=== PATIENT | female | born 1940 | race Caucasian/White ===

== ENCOUNTER 2016-11-24 10:37 | Inpatient (IN) | payer OTHER ==
--- NOTE | 2016-11-24 11:13 | PDOC ---
History of Present Illness - General Chief Complaint: Pain Stated Complaint: PAIN,WEAKNESS,RT HIP PAIN Time Seen by Provider: 11/24/16 11:06 History Source: Patient Exam Limitations: No Limitations - History of Present Illness Initial Comments: 11/24/16 11:13 Patient is a 75-year-old woman with a significant past medical history of breast cancer (bilateral mastectomy 4 years ago), lung cancer (small cancer in hip, spine and liver), collapsed left lung, and recurrent pleural effusions presents with one week history of worsening hip pain. She describes 10/10 sharp right hip pain that radiates from hip to interior thigh. She states pain started when she was trying to sit in chair and felt sharp pain in hip. Pain has progressed to pain where she can not bear to move or bare weight on right leg. No loss of sensation of right leg. Denies fever, chills , abd. pain, Timing/Duration: 1 week Severity: severe Modifying Factors: worse with: movement Associated Symptoms: denies: fever/chills, nausea/vomiting Aspirin Received prior to arrival: Yes: no aspirin today Past History - Travel Traveled outside of the country in the last 30 days: No Close contact w/someone who was outside of country & ill: No - Past Medical History Allergies/Adverse Reactions: Allergies Allergy/AdvReac Type Severity Reaction Status Date / Time codeine [Codeine] Allergy Severe DIZZINESS Verified 05/07/16 07:36 epinephrine Allergy Severe PALPITATION Verified 05/07/16 07:36 meperidine HCl [From Demerol] Allergy Severe Nausea Verified 05/07/16 07:36 morphine Allergy Severe WEAKNESS Verified 05/07/16 07:36 oxycodone HCl [From Percocet] Allergy Severe Nausea Verified 05/07/16 07:36 cephalexin [Cephalexin] Allergy Intermediate Hives Verified 05/07/16 07:36 diazepam [From Valium] Allergy Intermediate Hives Verified 05/07/16 07:36 ketorolac tromethamine Allergy Intermediate Hives Verified 05/07/16 07:36 [From Toradol] prochlorperazine edisylate Allergy Intermediate Hives Verified 05/07/16 07:36 [From Compazine] prochlorperazine maleate Allergy Intermediate Hives Verified 05/07/16 07:36 [From Compazine] ampicillin Allergy SEVERE RASH Verified 05/07/16 07:36 celery Allergy Verified 05/07/16 07:36 ciprofloxacin [From Cipro] Allergy SEVERE RASH Verified 05/07/16 07:36 ciprofloxacin HCl Allergy SEVERE RASH Verified 05/07/16 07:36 [From Cipro] clindamycin Allergy SEVERE RASH Verified 05/07/16 07:36 fentanyl Allergy Vomiting Verified 05/07/16 07:36 pineapple Allergy THROAT Verified 05/07/16 07:36 SWELLING piperacillin Allergy SEVERE RASH Verified 05/07/16 07:36 vancomycin Allergy SEVERE RASH Verified 05/07/16 07:36 Home Medications: Ambulatory Orders Ranitidine [Zantac -] 150 mg PO PRN PRN 06/24/12 Acetaminophen [Tylenol] 650 mg PO PRN 08/15/15 Diphenhydramine [Benadryl Capsule -] 50 mg PO Q6H PRN #120 capsule 08/26/15 Enoxaparin [Lovenox -] 90 mg SQ BID disp.syrin 08/26/15 Anastrozole [Arimidex -] 1 mg PO DAILY 05/06/16 Cholecalciferol (Vitamin D3) [Vitamin D3] 4,000 unit PO DAILY 05/06/16 Anemia: No Asthma: No Cancer: Yes (BILAT BREAST;LUNG LEFT ? R hip) Cardiac Disorders: Yes (PALPITATIONS) CVA: No COPD: No CHF: No Dementia: No Diabetes: No GI Disorders: Yes (REFLUX) Disorders: Yes (UTI'S, STRESS INCONTINENCE) HTN: No Hypercholesterolemia: No Liver Disease: Yes (cyst) Seizures: No Thyroid Disease: No - Surgical History Abdominal Surgery: Yes Appendectomy: Yes (age 18) Cardiac Surgery: No Cholecystectomy: Yes (1997) Lung Surgery: Yes (pleurodesis) Neurologic Surgery: No Orthopedic Surgery: No - Immunization History Immunization Up to Date: Yes - Psycho/Social/Smoking Cessation Hx Anxiety: No Suicidal Ideation: No Smoking History: Never smoked Have you smoked in the past 12 months: No Information on smoking cessation initiated: No Hx Alcohol Use: No Drug/Substance Use Hx: No Substance Use Type: None Hx Substance Use Treatment: No Review of Systems - Review of Systems Able to Perform ROS?: Yes Is the patient limited Uzbek proficient: No Constitutional: No: Chills, Diaphoresis, Fever Respiratory: No: Cough, Orthopnea Cardiac (ROS): No: Chest Pain Musculoskeletal: Yes: Joint Pain (right hip ) Neurological: Yes: Weakness, Unsteady Gait. No: Numbness, Tingling All Other Systems: Reviewed and Negative *Physical Exam - Vital Signs Last Vital Signs Temp Pulse Resp BP Pulse Ox 98.2 F 77 19 120/52 100 11/24/16 10:56 11/24/16 10:56 11/24/16 10:56 11/24/16 10:56 11/24/16 10:56 - Physical Exam General Appearance: Yes: Mild Distress, Obese HEENT: positive: EOMI, ESEQUIEL, Normal Voice Neck: positive: Supple Respiratory/Chest: positive: Decreased Breath Sounds (LLL ). negative: Respiratory Distress, Accessory Muscle Use, Rhonchi, Wheezing Cardiovascular: positive: Regular Rhythm, Regular Rate. negative: S1, S2, Edema , JVD, Murmur Vascular Pulses: Dorsalis-Pedis (R): 1+, Doralis-Pedis (L): 1+ Gastrointestinal/Abdominal: positive: Normal Bowel Sounds, Soft Musculoskeletal: positive: Decreased Range of Motion (right hip pain reproduced on internal rotation of hip.) ED Treatment Course - LABORATORY CBC & Chemistry Diagram: 11/24/16 11:47 11/24/16 11:47 Medical Decision Making - Medical Decision Making 11/24/16 11:54 A:Patient is a 75-year-old woman with a significant past medical history of breast cancer (bilateral mastectomy 4 years ago), lung cancer (small cancer in hip, spine and liver), collapsed left lung, and recurrent pleural effusions presents with one week history of worsening hip pain. Will w/u for possible pathologic fracture. P: * CBC,CMP, and EKG * Xray of hip and pelvis. right side. * IV tylenol 1000mg *DC/Admit/Observation/Transfer Diagnosis at time of Disposition: Inability to ambulate due to hip - Discharge Dispostion Condition at time of disposition: Stable Admit: Yes
[2016-11-24 11:22] VITALS: BMI 38.4
[2016-11-24] MEDS ORDERED: ACETAMINOPHEN 1000 MG/100 ML VIAL (NON FORMULARY) IVPB ONE (11:42)
[2016-11-24] MEDS ORDERED: ACETAMINOPHEN INJECTION 100 ML IVPB ONE (11:51)
[2016-11-24 11:59] LABS: BASOPHIL 0.5 % (0-2.0); EOSINOPHIL 0.6 % (0-4.5); MCH 26.6 pg (25.7-33.7); MCHC 32.5 g/dl (32.0-36.0); MEAN CELL VOLUME 81.8 fl (80-96); MEAN PLT VOLUME 8.4 fl (7.5-11.1); NEUTROPHILS 76.2 % (42.8-82.8); PLATELET COUNT 178 K/MM3 (134-434); RDW 16.3 % (11.6-15.6); WHITE BLOOD COUNT 9.1 K/mm3 (4.0-10.0)
[2016-11-24 12:24] LABS: ALBUMIN 3.7 g/dl (3.4-5.0); ANION GAP 9 (8-16); CALCIUM 9.7 mg/dL (8.5-10.1); CO2 28 mmol/L (21-32); COCKROFT - GAULT 188.785; CREATININE 0.4 mg/dL (0.55-1.02); GLUCOSE,RANDOM 98 mg/dL (74-106); SGOT/AST 11 U/L (15-37); SGPT/ALT 21 U/L (12-78)
[2016-11-24 12:26] LABS: ALK PHOS 79 U/L (45-117); BILIRUBIN,TOTAL 0.3 mg/dL (0.2-1.0); TOT PROT 6.8 g/dl (6.4-8.2)
--- NOTE | 2016-11-24 12:46 | PDOC ---
Attending Attestation - Resident Resident Name: Adriel Ivory - ED Attending Attestation I have performed the following: I have examined & evaluated the patient, The case was reviewed & discussed with the resident, I agree w/resident's findings & plan, Exceptions are as noted - HPI HPI: 75 yo F history breast CA s/p B/L mastectomies, lung CA, pleural effusions presents with 1 week history progressively worsening R hip pain, now severe. She is now unable to ambulate due to severe pain. She has multiple medication allergies, has difficulty tolerating pain medication. Denies loss of sensation, back pain. - Physicial Exam PE: GENERAL: Awake, alert, and fully oriented, in no acute distress HEAD: No signs of trauma EYES: PERRLA, EOMI, sclera anicteric, conjunctiva clear ENT: Auricles normal inspection, hearing grossly normal, nares patent, oropharynx clear without exudates. Moist mucosa NECK: Normal ROM, supple, no lymphadenopathy, JVD, or masses LUNGS: Breath sounds equal, clear to auscultation bilaterally. No wheezes, and no crackles HEART: Regular rate and rhythm, normal S1 and S2, no murmurs, rubs or gallops ABDOMEN: Soft, nontender, normoactive bowel sounds. No guarding, no rebound. No masses EXTREMITIES: R hip tenderness, with dec ROM due to pain. Remainder of extremities with normal range of motion, no edema. No clubbing or cyanosis. No cords, erythema, or tenderness NEUROLOGICAL: Cranial nerves II through XII grossly intact. Normal speech. Motor and sensation intact. Gait not tested due to nature of complaint. SKIN: Warm, Dry, normal turgor, no rashes or lesions noted. - Medical Decision Making Will obtain screening XR, and if not sufficient, will obtain CT. Will require admission for failure to ambulate. Patient normally sees Dr. Lim, who admits to Dr. Adame. However, Dr. Adame is away, covered by hospitalist. Heart Score/ECG Review - ECG Impressions Comment:: EKG read 12:05- NSR 72 bpm, +motion artifact. No acute ST/T changes
--- NOTE | 2016-11-24 15:49 | HP ---
CHIEF COMPLAINT: PCP: HISTORY OF PRESENT ILLNESS: ER course was notable for: (1) (2) (3) Recent Travel: PAST MEDICAL HISTORY: PAST SURGICAL HISTORY: Social History: Smoking: Alcohol: Drugs: Family History: Allergies codeine [Codeine] Allergy (Severe, Verified 05/07/16 07:36) DIZZINESS epinephrine Allergy (Severe, Verified 05/07/16 07:36) PALPITATION meperidine HCl [From Demerol] Allergy (Severe, Verified 05/07/16 07:36) Nausea VERY SICK morphine Allergy (Severe, Verified 05/07/16 07:36) WEAKNESS oxycodone HCl [From Percocet] Allergy (Severe, Verified 05/07/16 07:36) Nausea VERY SICK cephalexin [Cephalexin] Allergy (Intermediate, Verified 05/07/16 07:36) Hives diazepam [From Valium] Allergy (Intermediate, Verified 05/07/16 07:36) Hives ketorolac tromethamine [From Toradol] Allergy (Intermediate, Verified 05/07/16 07:36) Hives prochlorperazine edisylate [From Compazine] Allergy (Intermediate, Verified 07:36) Hives prochlorperazine maleate [From Compazine] Allergy (Intermediate, Verified 07:36) Hives ampicillin Allergy (Verified 05/07/16 07:36) SEVERE RASH celery Allergy (Verified 05/07/16 07:36) ciprofloxacin [From Cipro] Allergy (Verified 05/07/16 07:36) SEVERE RASH ciprofloxacin HCl [From Cipro] Allergy (Verified 05/07/16 07:36) SEVERE RASH clindamycin Allergy (Verified 05/07/16 07:36) SEVERE RASH fentanyl Allergy (Verified 05/07/16 07:36) Vomiting slow to awake-"didnt feel well"-vomited for 4 days pt placed on Prednisone pineapple Allergy (Verified 05/07/16 07:36) THROAT SWELLING piperacillin Allergy (Verified 05/07/16 07:36) SEVERE RASH vancomycin Allergy (Verified 05/07/16 07:36) SEVERE RASH HOME MEDICATIONS: Home Medications Medication Instructions Recorded Ranitidine [Zantac -] 150 mg PO PRN PRN 06/24/12 Acetaminophen [Tylenol] 650 mg PO PRN 08/15/15 Diphenhydramine [Benadryl Capsule 50 mg PO Q6H PRN #120 capsule 08/26/15 -] Enoxaparin [Lovenox -] 90 mg SQ BID disp.syrin 08/26/15 Anastrozole [Arimidex -] 1 mg PO DAILY 05/06/16 Cholecalciferol (Vitamin D3) 4,000 unit PO DAILY 05/06/16 [Vitamin D3] REVIEW OF SYSTEMS CONSTITUTIONAL: Absent: fever, chills, diaphoresis, generalized weakness, malaise, loss of appetite, weight change HEENT: Absent: rhinorrhea, nasal congestion, throat pain, throat swelling, difficulty swallowing, mouth swelling, ear pain, eye pain, visual changes CARDIOVASCULAR: Absent: chest pain, syncope, palpitations, irregular heart rate, lightheadedness , peripheral edema RESPIRATORY: Absent: cough, shortness of breath, dyspnea with exertion, orthopnea, wheezing, stridor, hemoptysis GASTROINTESTINAL: Absent: abdominal pain, abdominal distension, nausea, vomiting, diarrhea, constipation, melena, hematochezia GENITOURINARY: Absent: dysuria, frequency, urgency, hesitancy, hematuria, flank pain, genital pain MUSCULOSKELETAL: Absent: myalgia, arthralgia, joint swelling, back pain, neck pain SKIN: Absent: rash, itching, pallor HEMATOLOGIC/IMMUNOLOGIC: Absent: easy bleeding, easy bruising, lymphadenopathy, frequent infections ENDOCRINE: Absent: unexplained weight gain, unexplained weight loss, heat intolerance, cold intolerance NEUROLOGIC: Absent: headache, focal weakness or paresthesias, dizziness, unsteady gait, seizure, mental status changes, bladder or bowel incontinence PSYCHIATRIC: Absent: anxiety, depression, suicidal or homicidal ideation, hallucinations. PHYSICAL EXAMINATION Vital Signs - 24 hr 11/24/16 11/24/16 10:56 15:41 Temperature 98.2 F 97.9 F Pulse Rate 77 Pulse Rate [ 74 Apical] Respiratory 19 18 Rate Blood Pressure 120/52 Blood Pressure 124/79 [Right Arm] O2 Sat by Pulse 100 97 Oximetry (%) GENERAL: Awake, alert, and fully oriented, in no acute distress. HEAD: Normal with no signs of trauma. EYES: Pupils equal, round and reactive to light, extraocular movements intact, sclera anicteric, conjunctiva clear. No lid lag. EARS, NOSE, THROAT: Ears normal, nares patent, oropharynx clear without exudates. Moist mucous membranes. NECK: Normal range of motion, supple without lymphadenopathy, JVD, or masses. LUNGS: Breath sounds equal, clear to auscultation bilaterally. No wheezes, and no crackles. No accessory muscle use. HEART: Regular rate and rhythm, normal S1 and S2 without murmur, rub or gallop. ABDOMEN: Soft, nontender, not distended, normoactive bowel sounds, no guarding, no rebound, no masses. No hepatomegaly or splenomegaly. MUSCULOSKELETAL: Normal range of motion at all joints. No bony deformities or tenderness. No CVA tenderness. UPPER EXTREMITIES: 2+ pulses, warm, well-perfused. No cyanosis. No clubbing. No peripheral edema. LOWER EXTREMITIES: 2+ pulses, warm, well-perfused. No calf tenderness. No peripheral edema. NEUROLOGICAL: Cranial nerves II-XII intact. Normal speech. Normal gait. PSYCHIATRIC: Cooperative. Good eye contact. Appropriate mood and affect. SKIN: Warm, dry, normal turgor, no rashes or lesions noted, normal capillary refill. Laboratory Results - last 24 hr 11/24/16 11/24/16 11:47 11:47 WBC 9.1 RBC 5.06 Hgb 13.5 D Hct 41.4 MCV 81.8 MCHC 32.5 RDW 16.3 H Plt Count 178 D MPV 8.4 Neutrophils % 76.2 Lymphocytes % 17.5 Monocytes % 5.2 Eosinophils % 0.6 Basophils % 0.5 Sodium 140 Potassium 4.0 Chloride 103 Carbon Dioxide 28 Anion Gap 9 BUN 8 Creatinine 0.4 L D Creat Clearance w eGFR > 60 Random Glucose 98 Calcium 9.7 D Total Bilirubin 0.3 D AST 11 L D ALT 21 D Alkaline Phosphatase 79 D Total Protein 6.8 Albumin 3.7 D ASSESSMENT/PLAN:
--- NOTE | 2016-11-24 15:49 | HP ---
CHIEF COMPLAINT: PCP: Dr. Adame Cardiology: Dr. Castillo HISTORY OF PRESENT ILLNESS: The patient is a 75-year-old woman with a significant past medical history of recurrent and metastatic breast cancer (bilateral mastectomy 4 years ago), recurrent malignant pleural effusions, paroxysmal atrial fibrillation (on Lovenox) and pulmonary embolism, who presented to the emergency department with a 10 day history of worsening right hip pain. She states that the pain started abruptly when she was climbing the stairs. The pain has now progressed to the point where she can no longer bear weight on the right leg. It is worsened by range of motion at the right hip. She denies lower extremity weakness or paresthesias. She denies bladder or bowel incontinence or retention. She denies recent dyspnea. ER course was notable for: (1) R hip XRay suggesting of fracture of the femoral neck (2) CT ordered PAST MEDICAL HISTORY: See above PAST SURGICAL HISTORY: See above Social History: Smoking: No Alcohol: No Drugs: No Family History: Allergies codeine [Codeine] Allergy (Severe, Verified 05/07/16 07:36) DIZZINESS epinephrine Allergy (Severe, Verified 05/07/16 07:36) PALPITATION meperidine HCl [From Demerol] Allergy (Severe, Verified 05/07/16 07:36) Nausea VERY SICK morphine Allergy (Severe, Verified 05/07/16 07:36) WEAKNESS oxycodone HCl [From Percocet] Allergy (Severe, Verified 05/07/16 07:36) Nausea VERY SICK cephalexin [Cephalexin] Allergy (Intermediate, Verified 05/07/16 07:36) Hives diazepam [From Valium] Allergy (Intermediate, Verified 05/07/16 07:36) Hives ketorolac tromethamine [From Toradol] Allergy (Intermediate, Verified 05/07/16 07:36) Hives prochlorperazine edisylate [From Compazine] Allergy (Intermediate, Verified 07:36) Hives prochlorperazine maleate [From Compazine] Allergy (Intermediate, Verified 07:36) Hives ampicillin Allergy (Verified 05/07/16 07:36) SEVERE RASH celery Allergy (Verified 05/07/16 07:36) ciprofloxacin [From Cipro] Allergy (Verified 05/07/16 07:36) SEVERE RASH ciprofloxacin HCl [From Cipro] Allergy (Verified 05/07/16 07:36) SEVERE RASH clindamycin Allergy (Verified 05/07/16 07:36) SEVERE RASH fentanyl Allergy (Verified 05/07/16 07:36) Vomiting slow to awake-"didnt feel well"-vomited for 4 days pt placed on Prednisone pineapple Allergy (Verified 05/07/16 07:36) THROAT SWELLING piperacillin Allergy (Verified 05/07/16 07:36) SEVERE RASH vancomycin Allergy (Verified 05/07/16 07:36) SEVERE RASH HOME MEDICATIONS: Home Medications Medication Instructions Recorded Ranitidine [Zantac -] 150 mg PO PRN PRN 06/24/12 Acetaminophen [Tylenol] 650 mg PO PRN 08/15/15 Diphenhydramine [Benadryl Capsule 50 mg PO Q6H PRN #120 capsule 08/26/15 -] Enoxaparin [Lovenox -] 90 mg SQ BID disp.syrin 08/26/15 Anastrozole [Arimidex -] 1 mg PO DAILY 05/06/16 Cholecalciferol (Vitamin D3) 4,000 unit PO DAILY 05/06/16 [Vitamin D3] REVIEW OF SYSTEMS CONSTITUTIONAL: Absent: fever, chills, diaphoresis, generalized weakness, malaise, loss of appetite, weight change HEENT: Absent: rhinorrhea, nasal congestion, throat pain, throat swelling, difficulty swallowing, mouth swelling, ear pain, eye pain, visual changes CARDIOVASCULAR: Absent: chest pain, syncope, palpitations, irregular heart rate, lightheadedness , peripheral edema RESPIRATORY: Absent: cough, shortness of breath, dyspnea with exertion, orthopnea, wheezing, stridor, hemoptysis GASTROINTESTINAL: Absent: abdominal pain, abdominal distension, nausea, vomiting, diarrhea, constipation, melena, hematochezia GENITOURINARY: Absent: dysuria, frequency, urgency, hesitancy, hematuria, flank pain, genital pain MUSCULOSKELETAL: Present: See HPI Absent: joint swelling, back pain, neck pain SKIN: Absent: rash, itching, pallor HEMATOLOGIC/IMMUNOLOGIC: Absent: easy bleeding, easy bruising, lymphadenopathy, frequent infections ENDOCRINE: Absent: unexplained weight gain, unexplained weight loss, heat intolerance, cold intolerance NEUROLOGIC: Absent: headache, focal weakness or paresthesias, dizziness, unsteady gait, seizure, mental status changes, bladder or bowel incontinence PSYCHIATRIC: Absent: anxiety, depression, suicidal or homicidal ideation, hallucinations. PHYSICAL EXAMINATION Vital Signs - 24 hr 11/24/16 11/24/16 10:56 15:41 Temperature 98.2 F 97.9 F Pulse Rate 77 Pulse Rate [ 74 Apical] Respiratory 19 18 Rate Blood Pressure 120/52 Blood Pressure 124/79 [Right Arm] O2 Sat by Pulse 100 97 Oximetry (%) GENERAL: Awake, alert, and fully oriented, in no acute distress. HEAD: Normal with no signs of trauma. EYES: Pupils equal, round and reactive to light, extraocular movements intact, sclera anicteric, conjunctiva clear. No lid lag. EARS, NOSE, THROAT: Ears normal, nares patent, oropharynx clear without exudates. Moist mucous membranes. NECK: Normal range of motion, supple without lymphadenopathy, JVD, or masses. LUNGS: Breath sounds equal, clear to auscultation bilaterally. No wheezes, and no crackles. No accessory muscle use. HEART: Regular rate and rhythm, normal S1 and S2 without murmur, rub or gallop. ABDOMEN: Soft, nontender, not distended, normoactive bowel sounds, no guarding, no rebound, no masses. No hepatomegaly or splenomegaly. MUSCULOSKELETAL: There is tenderness to palpation over the right hip. There is pain on any range of motion, but most pronounced with external rotation. Normal range of motion at all other joints. No bony deformities or tenderness. No CVA tenderness. UPPER EXTREMITIES: 2+ pulses, warm, well-perfused. No cyanosis. No clubbing. No peripheral edema. LOWER EXTREMITIES: 2+ pulses, warm, well-perfused. No calf tenderness. No peripheral edema. NEUROLOGICAL: Cranial nerves II-XII intact. Normal speech. Normal gait. PSYCHIATRIC: Cooperative. Good eye contact. Appropriate mood and affect. SKIN: Warm, dry, normal turgor, no rashes or lesions noted, normal capillary refill. Laboratory Results - last 24 hr 11/24/16 11/24/16 11:47 11:47 WBC 9.1 RBC 5.06 Hgb 13.5 D Hct 41.4 MCV 81.8 MCHC 32.5 RDW 16.3 H Plt Count 178 D MPV 8.4 Neutrophils % 76.2 Lymphocytes % 17.5 Monocytes % 5.2 Eosinophils % 0.6 Basophils % 0.5 Sodium 140 Potassium 4.0 Chloride 103 Carbon Dioxide 28 Anion Gap 9 BUN 8 Creatinine 0.4 L D Creat Clearance w eGFR > 60 Random Glucose 98 Calcium 9.7 D Total Bilirubin 0.3 D AST 11 L D ALT 21 D Alkaline Phosphatase 79 D Total Protein 6.8 Albumin 3.7 D EKG: Normal sinus rhythm at 72, normal axis, incomplete right bundle-branch block, no ST changes ASSESSMENT/PLAN: The patient is a 76-year-old female with a significant past medical history and emergency department course as above, who is being admitted to inpatient services for a suspected pathological right hip fracture. ORTHO -Suspected pathological right femoral neck fracture Will obtain CT of the right hip to better define pathology Will consult orthopedics, she has seen Dr. Randall in the past Will use oral Tylenol for pain control She refuses any other analgesics Will consult cardiology and pulmonology for pre-operative cardiac and pulmonary evaluations CARDIOVASCULAR -Paroxysmal atrial fibrillation -History of PE She is in NSR Will discontinue Lovenox and begin heparin gtt (no bolus) Cardiology consult as above HEME/ONC -Metastatic breast cancer Will obtain CXR to assess known lung mets and chronic effusion Continue Arimidex Pulmonary consult as above FEN Anticipate that she will not have surgery today given need for pre-op pulmonary and cardiac evaluation Regular diet D51/2NS at 125ml/hr PROPHYLAXIS Will continue her home Ranitidine She is already anticoagulated Visit type - Emergency Visit Emergency Visit: Yes ED Registration Date: 11/24/16 Care time: The patient presented to the Emergency Department on the above date and was hospitalized for further evaluation of their emergent condition. - New Patient This patient is new to me today: Yes Date on this admission: 11/24/16 - Critical Care Critical Care patient: No
[2016-11-24] MEDS ORDERED: diphenhydrAMINE HCL 25 MG CAPSULE (FP) PO PRN (16:19)
[2016-11-24] MEDS ORDERED: HEPARIN NA (PORCINE) 5,000 UNITS/ML 1ML VIAL IVPUSH PRN (16:23)
[2016-11-24] MEDS ORDERED: DEXTROSE 5%-0.45% SALINE 1,000 ML IV SCH (16:30)
[2016-11-24] MEDS ORDERED: HEPARIN INFUSION - 500 ML IVPB ONE (16:35)
[2016-11-24 18:00] LABS: INR 1.21 (0.82-1.09); PROTHROMBIN TIME (PATIENT) 13.4 SEC (9.98-11.88)
[2016-11-24] MEDS: HEPARIN INFUSION - 500 ML IVPB SCH (18:24)
[2016-11-24] MEDS: RANITIDINE HCL 150 MG TABLET (FP) PO PRN (21:03)
--- NOTE | 2016-11-24 22:54 | EKG ---
Test Reason : Blood Pressure : / mmHG Vent. Rate : 072 BPM Atrial Rate : 072 BPM P-R Int : 164 ms QRS Dur : 098 ms QT Int : 382 ms P-R-T Axes : 042 016 015 degrees QTc Int : 418 ms NORMAL SINUS RHYTHM INCOMPLETE RIGHT BUNDLE BRANCH BLOCK BORDERLINE ECG WHEN COMPARED WITH ECG OF 15-AUG-2015 22:50, VENT. RATE HAS DECREASED Confirmed by NEAL SMITH MD ([id number]) on 11/24/2016 10:53:55 PM Referred By: Confirmed By:NEAL SMITH MD
[2016-11-25 08:01] LABS: BASOPHIL 0.7 % (0-2.0); EOSINOPHIL 1.8 % (0-4.5); MCH 27.2 pg (25.7-33.7); MCHC 33.3 g/dl (32.0-36.0); MEAN CELL VOLUME 81.7 fl (80-96); MEAN PLT VOLUME 8.4 fl (7.5-11.1); NEUTROPHILS 73.2 % (42.8-82.8); PLATELET COUNT 149 K/MM3 (134-434); RDW 16.2 % (11.6-15.6); WHITE BLOOD COUNT 8.1 K/mm3 (4.0-10.0)
[2016-11-25 08:40] LABS: ALBUMIN 3.2 g/dl (3.4-5.0); ALK PHOS 73 U/L (45-117); ANION GAP 10 (8-16); BILIRUBIN,TOTAL 0.3 mg/dL (0.2-1.0); CALCIUM 8.9 mg/dL (8.5-10.1); CO2 27 mmol/L (21-32); COCKROFT - GAULT 188.785; CREATININE 0.4 mg/dL (0.55-1.02); GLUCOSE,RANDOM 117 mg/dL (74-106); PHOSPHOROUS 3.8 mg/dL (2.5-4.9); SGOT/AST 8 U/L (15-37); SGPT/ALT 20 U/L (12-78); TOT PROT 6.1 g/dl (6.4-8.2)
--- NOTE | 2016-11-25 09:34 | CON.CARD ---
Consult Consult Specialty:: Cardiology Referred by:: Dr. Lim/Deep Reason for Consultation:: History PE, PAF, possible periop evaluation - History of Present Illness Chief Complaint: Right hip pain History of Present Illness: The patient is a 75-year-old woman with a significant past medical history of recurrent and metastatic breast cancer (bilateral mastectomy 4 years ago), recurrent malignant pleural effusions, paroxysmal atrial fibrillation (on Lovenox) and pulmonary embolism 2016, who presented to the emergency department with a 10 day history of worsening right hip pain. She states that the pain started abruptly when she was climbing the stairs. The pain has now progressed to the point where she can no longer bear weight on the right leg. It is worsened by range of motion at the right hip. She denies lower extremity weakness or paresthesias. She denies bladder or bowel incontinence or retention. She denies recent dyspnea. R hip XRay suggesting of fracture of the femoral neck CT done, showing no fracture but nonspecific sclerotic foci and pubic ramus fracture. Denies chest pain or SOB. TELE: NSR ECG with NSR and no acute ST changes. 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' hysterectomy,cholecystectomy appendectomy - Past Surgical History Past Surgical History: Yes: Appendectomy, Cholecystectomy, Mastectomy (bilateral ) - Alcohol/Substance Use Hx Alcohol Use: No - Smoking History Smoking history: Never smoked Have you smoked in the past 12 months: No - Social History ADL: Independent History of Recent Travel: No Home Medications - Allergies Allergies/Adverse Reactions: Allergies Allergy/AdvReac Type Severity Reaction Status Date / Time codeine [Codeine] Allergy Severe DIZZINESS Verified 05/07/16 07:36 epinephrine Allergy Severe PALPITATION Verified 05/07/16 07:36 meperidine HCl [From Demerol] Allergy Severe Nausea Verified 05/07/16 07:36 morphine Allergy Severe WEAKNESS Verified 05/07/16 07:36 oxycodone HCl [From Percocet] Allergy Severe Nausea Verified 05/07/16 07:36 cephalexin [Cephalexin] Allergy Intermediate Hives Verified 05/07/16 07:36 diazepam [From Valium] Allergy Intermediate Hives Verified 05/07/16 07:36 ketorolac tromethamine Allergy Intermediate Hives Verified 05/07/16 07:36 [From Toradol] prochlorperazine edisylate Allergy Intermediate Hives Verified 05/07/16 07:36 [From Compazine] prochlorperazine maleate Allergy Intermediate Hives Verified 05/07/16 07:36 [From Compazine] ampicillin Allergy SEVERE RASH Verified 05/07/16 07:36 celery Allergy Verified 05/07/16 07:36 ciprofloxacin [From Cipro] Allergy SEVERE RASH Verified 05/07/16 07:36 ciprofloxacin HCl Allergy SEVERE RASH Verified 05/07/16 07:36 [From Cipro] clindamycin Allergy SEVERE RASH Verified 05/07/16 07:36 fentanyl Allergy Vomiting Verified 05/07/16 07:36 pineapple Allergy THROAT Verified 05/07/16 07:36 SWELLING piperacillin Allergy SEVERE RASH Verified 05/07/16 07:36 vancomycin Allergy SEVERE RASH Verified 05/07/16 07:36 - Home Medications Home Medications: Ambulatory Orders Ranitidine [Zantac -] 150 mg PO PRN PRN 06/24/12 Acetaminophen [Tylenol] 650 mg PO PRN 08/15/15 Diphenhydramine [Benadryl Capsule -] 50 mg PO Q6H PRN #120 capsule 08/26/15 Enoxaparin [Lovenox -] 90 mg SQ BID disp.syrin 08/26/15 Anastrozole [Arimidex -] 1 mg PO DAILY 05/06/16 Cholecalciferol (Vitamin D3) [Vitamin D3] 4,000 unit PO DAILY 05/06/16 Family Disease History - Family Disease History Family Disease History: CA: Brother (Bladder), Other: Father (bleeding ulcer), Mother (CHF) Review of Systems Findings/Remarks: See HPI - Review of Systems Constitutional: reports: No Symptoms Musculoskeletal: reports: Other (right hip pain) - Risk Factors Known Risk Factors: Yes: Other (prior XRT) Vital Signs: Vital Signs Temperature 98 F 11/25/16 06:13 Pulse Rate 70 11/25/16 06:13 Respiratory Rate 20 11/25/16 06:13 Blood Pressure 134/75 11/25/16 06:13 O2 Sat by Pulse Oximetry (%) 96 11/24/16 20:34 Constitutional: Yes: No Distress Eyes: Yes: Conjunctiva Clear Respiratory: Yes: Regular, CTA Bilaterally Gastrointestinal: Yes: Normal Bowel Sounds, Soft Cardiovascular: Yes: Regular Rate and Rhythm JVD: No Carotid Bruit: No PMI: Non-Displaced Heart Sounds: Yes: S1, S2 (RRR, no murmurs) Edema: No Neurological: Yes: Alert, Oriented ...Motor Strength: WNL - Other Data Labs, Other Data: CBC, BMP 11/25/16 05:50 11/25/16 05:50 INR, PTT INR 1.21 (0.82-1.09) H 11/24/16 17:30 NSR 76bpm, no acute changes Echo: Pending Ejection Fraction %: LVEF > or = 40 % Imaging - Results Chest X-ray: Image Reviewed Cat Scan: Report Reviewed EKG: Image Reviewed Problem List - Problems (1) Inability to ambulate due to hip Assessment/Plan: -CT without evidence of femoral fracture; pubic ramus fracture, usually managed medically -Ortho eval Code(s): R26.2 - DIFFICULTY IN WALKING, NOT ELSEWHERE CLASSIFIED (2) Paroxysmal a-fib Assessment/Plan: -Currently in sinus, Continue AC. -Was switched from Lovenox to heparin gtts in case surgery was needed. Code(s): I48.0 - PAROXYSMAL ATRIAL FIBRILLATION (3) Pulmonary embolism on long-term anticoagulation therapy Assessment/Plan: -July 2015 -For echo to re-assess RV and RVSP Code(s): I26.99 - OTHER PULMONARY EMBOLISM WITHOUT ACUTE COR PULMONALE Z79.01 - SKILLED NURSING (CURRENT) USE OF ANTICOAGULANTS (4) Metastatic breast cancer Assessment/Plan: -as per PMD and oncology Code(s): C50.919 - MALIGNANT NEOPLASM OF UNSP SITE OF UNSPECIFIED FEMALE BREAST C79.9 - SECONDARY MALIGNANT NEOPLASM OF UNSPECIFIED SITE
[2016-11-25] MEDS: CHOLECALCIFEROL (VITAMIN D3) 1,000 UNIT TABLET (FP) PO SCH (10:42)
--- NOTE | 2016-11-25 10:52 | PN ---
Progress Note (short form) - Note Progress Note: Pt seen and examined. In summary she is a 76 year old female with a history of metastatic breast cancer and a 10 day history of right hip pain. She was walking up the stairs, and on the third step she felt a sharp pain in the right hip and anterior groin area. Since then she has had severe pain and difficulty ambulating because pain in the right hip. PE The RLE appears grossly normal. No areas of ecchymosis, no swelling. No deformity, no malrotation or shortening. NVI + pain in the right anterior groin and lateral aspect of the hip with logrolling, and attempting the straight leg raise. Has difficulty with active hip flexion. Good ROM at the right knee, ankle, foot, toes. Xrays Show a radioluscent line in the right femoral neck. No obvious fracture. CT Scan Shows no acute bony pathology, no fracture. Only severe OA and bony changes consistent with metastatic cancer. Imp Severe right hip OA with femoral and acetabular metastatic Breast Cancer, no obvious fracture. Rec A trial of Physical therapy, WBAT with walker. If her ambulation ability improves, no surgery necessary. If no improvement in pain and ability to ambulate I would recommend a right THR. Can f/u as an out pt
[2016-11-25] MEDS: ANASTROZOLE 1 MG TABLET PO SCH (12:48)
--- NOTE | 2016-11-25 13:11 | EKG ---
Test Reason : Blood Pressure : / mmHG Vent. Rate : 076 BPM Atrial Rate : 076 BPM P-R Int : 172 ms QRS Dur : 094 ms QT Int : 366 ms P-R-T Axes : 066 008 017 degrees QTc Int : 411 ms NORMAL SINUS RHYTHM NORMAL ECG WHEN COMPARED WITH ECG OF 24-NOV-2016 11:53, NO SIGNIFICANT CHANGE WAS FOUND Confirmed by SIVAN SIGNH MD ([id number]) on 11/25/2016 1:10:44 PM Referred By: Gia HENDRICKS Confirmed By:SIVAN SINGH MD
--- NOTE | 2016-11-25 15:35 | CON.PULM ---
Consult Consult Specialty:: PULMONARY Referred by:: MATT Reason for Consultation:: PRE-OP CLEARANCE - History of Present Illness Chief Complaint: RIGHT HIP PAIN History of Present Illness: The patient is a 75-year-old woman with a significant past medical history of recurrent and metastatic breast cancer (bilateral mastectomy 4 years ago), recurrent malignant pleural effusions, paroxysmal atrial fibrillation (on Lovenox) and pulmonary embolism, who presented to the emergency department with a 10 day history of worsening right hip pain. She states that the pain started abruptly when she was climbing the stairs. The pain has now progressed to the point where she can no longer bear weight on the right leg. It is worsened by range of motion at the right hip. She denies lower extremity weakness or paresthesias. She denies bladder or bowel incontinence or retention. She denies recent dyspnea. - History Source History Provided By: Patient, Medical Record Limitations to Obtaining History: No Limitations - Past Medical History MANAGER REQUIREMENTS: No: Alzheimer's, CVA Cardio/Vascular: No: AFIB Pulmonary: Yes: Other (recurrent left malignant effusion s/p VATS). No: COPD Gastrointestinal: Yes: GERD. 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,cholecystectomy appendectomy - Past Surgical History Past Surgical History: Yes: Appendectomy, Cholecystectomy, Mastectomy (bilateral ) - Alcohol/Substance Use Hx Alcohol Use: No - Smoking History Smoking history: Never smoked Have you smoked in the past 12 months: No - Social History ADL: Independent Place of : [facility] History of Recent Travel: No Home Medications - Allergies Allergies/Adverse Reactions: Allergies Allergy/AdvReac Type Severity Reaction Status Date / Time codeine [Codeine] Allergy Severe DIZZINESS Verified 05/07/16 07:36 epinephrine Allergy Severe PALPITATION Verified 05/07/16 07:36 meperidine HCl [From Demerol] Allergy Severe Nausea Verified 05/07/16 07:36 morphine Allergy Severe WEAKNESS Verified 05/07/16 07:36 oxycodone HCl [From Percocet] Allergy Severe Nausea Verified 05/07/16 07:36 cephalexin [Cephalexin] Allergy Intermediate Hives Verified 05/07/16 07:36 diazepam [From Valium] Allergy Intermediate Hives Verified 05/07/16 07:36 ketorolac tromethamine Allergy Intermediate Hives Verified 05/07/16 07:36 [From Toradol] prochlorperazine edisylate Allergy Intermediate Hives Verified 05/07/16 07:36 [From Compazine] prochlorperazine maleate Allergy Intermediate Hives Verified 05/07/16 07:36 [From Compazine] ampicillin Allergy SEVERE RASH Verified 05/07/16 07:36 celery Allergy Verified 05/07/16 07:36 ciprofloxacin [From Cipro] Allergy SEVERE RASH Verified 05/07/16 07:36 ciprofloxacin HCl Allergy SEVERE RASH Verified 05/07/16 07:36 [From Cipro] clindamycin Allergy SEVERE RASH Verified 05/07/16 07:36 fentanyl Allergy Vomiting Verified 05/07/16 07:36 pineapple Allergy THROAT Verified 05/07/16 07:36 SWELLING piperacillin Allergy SEVERE RASH Verified 05/07/16 07:36 vancomycin Allergy SEVERE RASH Verified 05/07/16 07:36 - Home Medications Home Medications: Ambulatory Orders Ranitidine [Zantac -] 150 mg PO PRN PRN 06/24/12 Acetaminophen [Tylenol] 650 mg PO PRN 08/15/15 Diphenhydramine [Benadryl Capsule -] 50 mg PO Q6H PRN #120 capsule 08/26/15 Enoxaparin [Lovenox -] 90 mg SQ BID disp.syrin 08/26/15 Anastrozole [Arimidex -] 1 mg PO DAILY 05/06/16 Cholecalciferol (Vitamin D3) [Vitamin D3] 4,000 unit PO DAILY 05/06/16 Family Disease History - Family Disease History Family Disease History: CA: Brother (Bladder), Other: Father (bleeding ulcer), Mother (CHF) Review of Systems - Review of Systems Constitutional: denies: Chills Eyes: denies: Blind Spots HENT: denies: Difficult Swallowing Neck: denies: Decreased ROM Cardiovascular: denies: Chest Pain Respiratory: denies: Cough Gastrointestinal: denies: Abdominal Pain Genitourinary: reports: No Symptoms Breasts: reports: See HPI Musculoskeletal: reports: Extremity Pain, Joint Pain Neurological: reports: No Symptoms Physical Exam Vital Sings: Vital Signs Temperature 98.3 F 11/25/16 14:55 Pulse Rate 78 11/25/16 14:55 Respiratory Rate 20 11/25/16 14:55 Blood Pressure 140/64 11/25/16 14:55 O2 Sat by Pulse Oximetry (%) 95 11/25/16 09:00 Constitutional: Yes: Calm Eyes: Yes: EOM Intact HENT: Yes: Normocephalic Neck: Yes: Trachea Midline Cardiovascular: Yes: Regular Rate and Rhythm, S1, S2 Respiratory: Yes: Rales (left base) Gastrointestinal: Yes: Abdomen, Obese Extremities: Yes: External Rotation (right lower ext) Integumentary: Yes: WNL Neurological: Yes: WNL ...Motor Strength: LLE (weakness post-polio) Labs: CBC, BMP 11/25/16 05:50 11/25/16 05:50 rest reviewed Imaging - Results Chest X-ray: Image Reviewed Cat Scan: Report Reviewed Problem List - Problems (1) Inability to ambulate due to hip Code(s): R26.2 - DIFFICULTY IN WALKING, NOT ELSEWHERE CLASSIFIED (2) Metastatic breast cancer Code(s): C50.919 - MALIGNANT NEOPLASM OF UNSP SITE OF UNSPECIFIED FEMALE BREAST C79.9 - SECONDARY MALIGNANT NEOPLASM OF UNSPECIFIED SITE (3) Paroxysmal a-fib Code(s): I48.0 - PAROXYSMAL ATRIAL FIBRILLATION (4) Pleural effusion Code(s): J90 - PLEURAL EFFUSION, NOT ELSEWHERE CLASSIFIED (5) Pulmonary emboli Code(s): I26.99 - OTHER PULMONARY EMBOLISM WITHOUT ACUTE COR PULMONALE Assessment/Plan IMPENDING PATHOLOGICAL FRACTURE RIGHT HIP ORTHO NOTE REVIEWED BREAST CA BILATERAL WITH H/O LIVER METS/LEFT PLEURAL EFFUSION S/P PLEURODESIS STABLE RESP STATUS RT-ONCO OPINION BONE SCAN FURTHER COMMENTS TO FOLLOW SPOKE WITH PMD DR. HILDA SINGER MD
--- NOTE | 2016-11-25 15:49 | PN ---
Physical Exam: SUBJECTIVE: Patient seen and examined. She is complaining of constipation and its aggravating her OBJECTIVE: Vital Signs Period Temp Pulse Resp BP Sys/Saul Pulse Ox Last 24 Hr 97.2 F-98.4 F 68-78 18-20 108-140/53-75 95-99 PE Neuro: alert, awake, cn 2-12intact Pulm: diminished + nc CV: s1 s2 rrr Abd: soft + cramping nd +bs ExT: le edema +1 msk: R hip tenderness Laboratory Results - last 24 hr 11/24/16 11/24/16 11/24/16 17:30 17:30 17:30 WBC RBC Hgb Hct MCV MCHC RDW Plt Count MPV Neutrophils % Lymphocytes % Monocytes % Eosinophils % Basophils % INR 1.21 H PTT (Actin FS) Sodium Potassium Chloride Carbon Dioxide Anion Gap BUN Creatinine Creat Clearance w eGFR Random Glucose Calcium Phosphorus 4.0 Magnesium 2.0 Total Bilirubin AST ALT Alkaline Phosphatase Total Protein Albumin Blood Type A POSITIVE Antibody Screen Negative 11/24/16 11/25/16 11/25/16 17:30 00:40 05:50 WBC 8.1 RBC 4.63 Hgb 12.6 Hct 37.9 MCV 81.7 MCHC 33.3 RDW 16.2 H Plt Count 149 MPV 8.4 Neutrophils % 73.2 Lymphocytes % 18.4 Monocytes % 5.9 Eosinophils % 1.8 D Basophils % 0.7 INR PTT (Actin FS) 40.8 H 57.1 H D Sodium Potassium Chloride Carbon Dioxide Anion Gap BUN Creatinine Creat Clearance w eGFR Random Glucose Calcium Phosphorus Magnesium Total Bilirubin AST ALT Alkaline Phosphatase Total Protein Albumin Blood Type Antibody Screen 11/25/16 05:50 WBC RBC Hgb Hct MCV MCHC RDW Plt Count MPV Neutrophils % Lymphocytes % Monocytes % Eosinophils % Basophils % INR PTT (Actin FS) Sodium 144 Potassium 3.8 Chloride 107 Carbon Dioxide 27 Anion Gap 10 BUN 12 D Creatinine 0.4 L Creat Clearance w eGFR > 60 Random Glucose 117 H Calcium 8.9 Phosphorus 3.8 Magnesium 2.0 Total Bilirubin 0.3 AST 8 L D ALT 20 Alkaline Phosphatase 73 Total Protein 6.1 L Albumin 3.2 L Blood Type Antibody Screen Active Medications Generic Name Dose Route Start Last Admin Trade Name Freq PRN Reason Stop Dose Admin Acetaminophen 650 mg 11/24/16 16:30 Tylenol - PO Q6H PRN FEVER OR PAIN Anastrozole 1 mg 11/25/16 10:00 11/25/16 12:48 Arimidex - PO 1 mg DAILY FAN Administration Cholecalciferol 4,000 unit 11/25/16 10:00 11/25/16 10:42 Vitamin D3 - PO 4,000 unit DAILY FAN Administration Diphenhydramine HCl 50 mg 11/24/16 16:19 Benadryl - PO Q6H PRN ANXIETY Heparin Sodium (Porcine) 1,000 unit 11/24/16 16:23 Heparin - IVPUSH PRN PRN Heparin Heparin Sodium (Porcine) 5,000 unit 11/24/16 16:23 Heparin - IVPUSH PRN PRN Heparin Dextrose/Sodium Chloride 1,000 mls @ 125 mls/hr 11/24/16 16:30 11/24/16 17:28 D5-1/2ns - IV 125 mls/hr ASDIR FAN Administration Heparin Sodium/Dextrose 500 mls @ 20 mls/hr 11/24/16 16:30 11/25/16 02:21 Heparin Infusion - IVPB 1,000 units/hr TITR FAN Titration Protocol 1,000 UNITS/HR Ranitidine HCl 150 mg 11/24/16 16:19 11/24/16 21:03 Zantac - PO 150 mg BID PRN Administration INDIGESTION Assessment: 76 year old woman with a significant past medical history of recurrent and metastatic breast cancer (bilateral mastectomy 4 years ago), recurrent malignant pleural effusions, paroxysmal atrial fibrillation (on Lovenox) and pulmonary embolism, who presented to the emergency department with a 10 day history of worsening right hip pain. She states that the pain started abruptly when she was climbing the stairs.suspected pathological right hip fracture. Plan: 1. Severe right hip OA with femoral acetabular metastatic breast ca - CT with no obvious fx - Per ortho: trial PT and WBAT and no surgery - If dose not improve will need THR 2. Paroxysmal atrial fibrillation/History of PE - ECHO shows normal LV size, fxn, EF, mild MR/TR, RVSP normal - Continue heparin gtt - Cardiology seeing 3. Metastatic bilateral breast cancer with h/o liver mets/left pleural effusion s/p pleurodesis - Continue Arimidex - If will need surgery will obtain oncology opinion - F/u Bone scan eval bone mets 4. Constipation - Bowel regimen - dulcolax pr prn 5. PPX GI: Continue home Ranitidine DVT: on AC Visit type - Emergency Visit Emergency Visit: Yes ED Registration Date: 11/24/16 Care time: The patient presented to the Emergency Department on the above date and was hospitalized for further evaluation of their emergent condition. - New Patient This patient is new to me today: Yes Date on this admission: 11/25/16 - Critical Care Critical Care patient: No
[2016-11-25] MEDS: HEPARIN INFUSION - 500 ML IVPB SCH (18:18)
[2016-11-25] MEDS ORDERED: BISACODYL 10 MG SUPP.RECT RC PRN (19:04)
[2016-11-25] MEDS: POLYETHYLENE GLYCOL 3350 119 GM BTL PO SCH (20:12)
[2016-11-25] MEDS: DOCUSATE SODIUM 100 MG CAPSULE (FP) PO SCH ×2 (20:12→21:17)
[2016-11-25] MEDS: SENNOSIDES 8.6MG TABLET (FP) PO SCH (21:15)
[2016-11-26 08:09] LABS: MCH 27.2 pg (25.7-33.7); MCHC 33.2 g/dl (32.0-36.0); MEAN PLT VOLUME 8.9 fl (7.5-11.1); PLATELET COUNT 151 K/MM3 (134-434); RDW 16.4 % (11.6-15.6); WHITE BLOOD COUNT 9.1 K/mm3 (4.0-10.0)
[2016-11-26 08:41] LABS: CALCIUM 9.1 mg/dL (8.5-10.1); COCKROFT - GAULT 251.77; CREATININE 0.3 mg/dL (0.55-1.02)
--- NOTE | 2016-11-26 09:09 | PN ---
Progress Note, Physician Chief Complaint: Echo: normal LV; normalized RV function History of Present Illness: TELE: NSR - Current Medication List Current Medications: Active Medications Acetaminophen (Tylenol -) 650 mg PO Q6H PRN PRN Reason: FEVER OR PAIN Anastrozole (Arimidex -) 1 mg PO DAILY [facility] Last Admin: 11/25/16 12:48 Dose: 1 mg Bisacodyl (Dulcolax Suppository -) 10 mg RC PRN PRN PRN Reason: CONSTIPATION Cholecalciferol (Vitamin D3 -) 4,000 unit PO DAILY [facility] Last Admin: 11/25/16 10:42 Dose: 4,000 unit Diphenhydramine HCl (Benadryl -) 50 mg PO Q6H PRN PRN Reason: ANXIETY Docusate Sodium (Colace -) 100 mg PO BID [facility] Last Admin: 11/25/16 21:17 Dose: Not Given Heparin Sodium (Porcine) (Heparin -) 1,000 unit IVPUSH PRN PRN PRN Reason: Heparin Heparin Sodium (Porcine) (Heparin -) 5,000 unit IVPUSH PRN PRN PRN Reason: Heparin Heparin Sodium/Dextrose (Heparin Infusion -) 500 mls @ 20 mls/hr IVPB TITR FAN ; 1,000 UNITS/HR PRN Reason: Protocol Last Admin: 11/25/16 18:18 Dose: 20 mls/hr Polyethylene Glycol (Miralax (For Daily Use) -) 17 gm PO DAILY [facility] Last Admin: 11/25/16 20:12 Dose: 17 gm Ranitidine HCl (Zantac -) 150 mg PO BID PRN PRN Reason: INDIGESTION Last Admin: 11/24/16 21:03 Dose: 150 mg Senna (Senna -) 2 tab PO HS [facility] Last Admin: 11/25/16 21:15 Dose: 2 tab - Objective Vital Signs: Vital Signs Temperature 97.6 F 11/26/16 05:51 Pulse Rate 77 11/26/16 05:51 Respiratory Rate 20 11/26/16 05:51 Blood Pressure 150/66 11/26/16 05:51 O2 Sat by Pulse Oximetry (%) 95 11/25/16 20:54 Constitutional: Yes: Calm Cardiovascular: Yes: Regular Rate and Rhythm Respiratory: Yes: CTA Bilaterally Gastrointestinal: Yes: Soft (non-tender) Edema: Yes Edema: LLE: Trace, RLE: Trace Neurological: Yes: Alert, Oriented Labs: CBC, BMP 11/26/16 05:40 11/26/16 05:40 INR, PTT INR 1.21 (0.82-1.09) H 11/24/16 17:30 Laboratory Tests 08/20/15 11/26/16 11/26/16 05:35 05:40 05:40 WBC 7.4 9.1 Hgb 11.8 12.8 Plt Count 140 151 PTT (Actin FS) 57.9 H Sodium Potassium BUN Creatinine 11/26/16 05:40 WBC Hgb Plt Count PTT (Actin FS) Sodium 143 Potassium 3.9 BUN 9 D Creatinine 0.3 L D - ....Imaging EKG: Image Reviewed Problem List - Problems (1) Inability to ambulate due to hip Code(s): R26.2 - DIFFICULTY IN WALKING, NOT ELSEWHERE CLASSIFIED (2) Paroxysmal a-fib Code(s): I48.0 - PAROXYSMAL ATRIAL FIBRILLATION (3) Pulmonary embolism on long-term anticoagulation therapy Code(s): I26.99 - OTHER PULMONARY EMBOLISM WITHOUT ACUTE COR PULMONALE Z79.01 - CLIENT FINANCE ANALYST (CURRENT) USE OF ANTICOAGULANTS (4) Metastatic breast cancer Code(s): C50.919 - MALIGNANT NEOPLASM OF UNSP SITE OF UNSPECIFIED FEMALE BREAST C79.9 - SECONDARY MALIGNANT NEOPLASM OF UNSPECIFIED SITE Assessment/Plan Problem List - Problems (1) Inability to ambulate due to hip Assessment/Plan: -CT without evidence of femoral fracture; pubic ramus fracture -Possible impending pathologic fracture, awaits bone scan and Rad-Onc input -Ortho eval noted. Code(s): R26.2 - DIFFICULTY IN WALKING, NOT ELSEWHERE CLASSIFIED (2) Paroxysmal a-fib Assessment/Plan: -Currently in sinus, Continue AC. Can D/C telemetry -Was switched from Lovenox to heparin gtts in case surgery is required. Code(s): I48.0 - PAROXYSMAL ATRIAL FIBRILLATION (3) Pulmonary embolism on long-term anticoagulation therapy Assessment/Plan: -July 2015 -repeat echo yesterday showed normal LV and RV fxn, recovered RV fxn. Code(s): I26.99 - OTHER PULMONARY EMBOLISM WITHOUT ACUTE COR PULMONALE Z79.01 - CLIENT FINANCE ANALYST (CURRENT) USE OF ANTICOAGULANTS (4) Metastatic breast cancer Assessment/Plan: -as per PMD and oncology Code(s): C50.919 - MALIGNANT NEOPLASM OF UNSP SITE OF UNSPECIFIED FEMALE BREAST C79.9 - SECONDARY MALIGNANT NEOPLASM OF UNSPECIFIED SITE
[2016-11-26] MEDS: CHOLECALCIFEROL (VITAMIN D3) 1,000 UNIT TABLET (FP) PO SCH (09:59)
[2016-11-26] MEDS: DOCUSATE SODIUM 100 MG CAPSULE (FP) PO SCH ×2 (09:59→22:43)
[2016-11-26] MEDS: POLYETHYLENE GLYCOL 3350 119 GM BTL PO SCH (09:59)
[2016-11-26] MEDS: ANASTROZOLE 1 MG TABLET PO SCH (09:59)
--- NOTE | 2016-11-26 10:24 | PN ---
Progress Note (short form) - Note Progress Note: Pt seen and examined. She has not done P.T. yet, waiting for PMD and cardiac clearance. She hasn't tested it with weight bearing over the past 24 hours, but the right hip feels ok in bed. Rec P.T. with walker and assistance, PWB RLE once cleared No surgery planned at this time The PT would like a Podiatry consultation
--- NOTE | 2016-11-26 16:41 | PN ---
Physical Exam: SUBJECTIVE: Patient seen and examined. She denies any pain or discomfort. Asking for a vocational education teacher to cut her toe nails because they bother her. OBJECTIVE: Vital Signs Period Temp Pulse Resp BP Sys/Saul Pulse Ox Last 24 Hr 97.2 F-98.7 F 70-78 20-22 140-163/50-75 95-97 GENERAL: The patient is awake, alert, and fully oriented, in no acute distress. HEAD: Normal with no signs of trauma. EYES: PERRL, extraocular movements intact, sclera anicteric, conjunctiva clear. No ptosis. ENT: Ears normal, nares patent, oropharynx clear without exudates, moist mucous membranes. NECK: Trachea midline, full range of motion, supple. LUNGS: Breath sounds equal, clear to auscultation bilaterally, no wheezes, no crackles, no accessory muscle use. ABDOMEN: Soft, nontender, nondistended, normoactive bowel sounds, no guarding, no rebound, no hepatosplenomegaly, no masses. NEUROLOGICAL: Normal speech, gait not observed. PSYCH: Normal mood, normal affect. SKIN: Warm, dry, normal turgor, no rashes or lesions noted Laboratory Results - last 24 hr 11/26/16 11/26/16 11/26/16 05:40 05:40 05:40 WBC 9.1 RBC 4.71 Hgb 12.8 Hct 38.7 MCV 82.0 MCHC 33.2 RDW 16.4 H Plt Count 151 MPV 8.9 PTT (Actin FS) 57.9 H Sodium 143 Potassium 3.9 Chloride 107 Carbon Dioxide 26 Anion Gap 10 BUN 9 D Creatinine 0.3 L D Random Glucose 111 H Calcium 9.1 Active Medications Generic Name Dose Route Start Last Admin Trade Name Freq PRN Reason Stop Dose Admin Acetaminophen 650 mg 11/24/16 16:30 Tylenol - PO Q6H PRN FEVER OR PAIN Anastrozole 1 mg 11/25/16 10:00 11/26/16 09:59 Arimidex - PO 1 mg DAILY FAN Administration Bisacodyl 10 mg 11/25/16 19:04 Dulcolax Suppository - RC PRN PRN CONSTIPATION Cholecalciferol 4,000 unit 11/25/16 10:00 11/26/16 09:59 Vitamin D3 - PO 4,000 unit DAILY FAN Administration Diphenhydramine HCl 50 mg 11/24/16 16:19 Benadryl - PO Q6H PRN ANXIETY Docusate Sodium 100 mg 11/25/16 19:04 11/26/16 09:59 Colace - PO 100 mg BID FAN Administration Heparin Sodium (Porcine) 1,000 unit 11/24/16 16:23 Heparin - IVPUSH PRN PRN Heparin Heparin Sodium (Porcine) 5,000 unit 11/24/16 16:23 Heparin - IVPUSH PRN PRN Heparin Heparin Sodium/Dextrose 500 mls @ 20 mls/hr 11/24/16 16:30 11/25/16 18:18 Heparin Infusion - IVPB 20 mls/hr TITR FAN Administration Protocol 1,000 UNITS/HR Polyethylene Glycol 17 gm 11/25/16 19:15 11/26/16 09:59 Miralax (For Daily Use) - PO 17 gm DAILY FAN Administration Ranitidine HCl 150 mg 11/24/16 16:19 11/24/16 21:03 Zantac - PO 150 mg BID PRN Administration INDIGESTION Senna 2 tab 11/25/16 22:00 11/25/16 21:15 Senna - PO 2 tab HS FAN Administration ASSESSMENT/PLAN: Patient is a 76 year old woman with a significant past medical history of metastatic breast cancer with a hx of bilateral mastectomy, recurrent malignant pleural effusions, paroxysmal atrial fibrillation and PE. She presented to the ER on 11/24/16 with inability to ambulate due to right hip pain for apx 10 days. Imaging: CT of LE w/o contrast 11/24/2016 - No CT evidence of fracture involving the right hip, a subtle acute fracture of the right inferior pubic ramus noted. Muscular/Skeletal: Severe right hip pain - acute Assessment/Plan: No CT evidence of fracture involving the right hip, a subtle acute fracture of the right inferior pubic ramus noted. Ortho following Physical therapy consulted Awaiting bone scan today Hematology: Pulmonary Embolism history Assessment/Plan: On Heparin drip Cardiology following Cardiology: Paroxysmal atrial fibrillation Assessment/Plan: On heparin gtt Cardiology following Oncology: Metastatic bilateral breast cancer Assessment/Plan: On Arimidex Bone scan for today F.E.N. Fluids: tolerating PO Electrolytes: monitor BMP Nutrition: low sodium Prophylaxis: GI: Zantac, Senna DVT: Heparin drip Disposition: Continues to require inpatient hospitalization. Full Code. Visit type - Emergency Visit Emergency Visit: Yes ED Registration Date: 11/24/16 Care time: The patient presented to the Emergency Department on the above date and was hospitalized for further evaluation of their emergent condition. - New Patient This patient is new to me today: No - Critical Care Critical Care patient: No - Discharge Referral Referred to [facility] Med P.C.: No
--- NOTE | 2016-11-26 18:18 | PN ---
Progress Note (short form) - Note Progress Note: Radiation Oncology Pt seen/examined, chart/films reviewed, full consult dictated. 76yo w h/o bilateral breast cancers s/p BCS+RT in ' (left) and (right), recurrence in left breast (ER+ HER2-) in '12 s/p bilateral mastectomies (Dr. Morris), subsequent metastatic recurrence in lung/liver a few years ago, on Arimidex since (Dr. Guzman) with clinical response according to the patient. Last PET-CT in showed improvement of liver mets per the pt. Admitted now with acute pain in rt hip and groin, exacerbated with movement or weight bearing , unable to ambulate. CT scan reviewed with Dr. Beebe shows extensive sclerotic changes in right hip and proximal femur - fibrous dysplasia vs mets, very subtle inferior pubic ramus change ? fracture. MRI would not be helpful to further delineate. Seen by Dr. Rivera, no surgical intervention advised at this time, rec partial wt bearing after PT eval. Pt just returned from bone scan. Impression/Plan: Clinically suspicious for metastatic process as the cause of hip pain, but will request and review prior PET-CT for comparison and follow up bone scan result. If convincing for metastatic bony disease, pt would benefit from palliative RT. Will need pain mgt consult and orthosx followup. Cont Arimidex.
[2016-11-26] MEDS: ACETAMINOPHEN 325 MG TABLET (FP) PO PRN (19:06)
[2016-11-26] MEDS: HEPARIN INFUSION - 500 ML IVPB SCH (19:08)
[2016-11-26] MEDS: RANITIDINE HCL 150 MG TABLET (FP) PO PRN (22:42)
[2016-11-26] MEDS: SENNOSIDES 8.6MG TABLET (FP) PO SCH ×2 (22:43→22:50)
--- NOTE | 2016-11-27 07:25 | CONS ---
DATE OF CONSULTATION: 11/26/2016 REFERRING PHYSICIAN: Erickson Key MD REASON FOR CONSULTATION: Right hip/groin pain in patient with metastatic breast cancer. HISTORY OF PRESENT ILLNESS: The patient is a 76-year-old woman with a history of bilateral breast cancer stage 1 on the left in 2000 and stage 1 on the right in 2002, both managed with breast conserving surgery and postoperative radiation therapy to 6000 cGy. In 2011, she had a local recurrence in the left breast of an ER/UT positive HER2 negative invasive breast cancer and underwent bilateral mastectomy by Dr. Morris. Since then, she had a metastatic recurrence in the lung with pleural effusion in liver subsequently in 2014. She has been on Arimidex under the care of Dr. Guzman. She reports that her PET CT scans done at an outside facility shows improvement of the liver metastases. She now presents with a 1-week history of increasing right hip pain initially when climbing stairs. She denies trauma or fall. The pain has progressively increased to the point where she is unable to ambulate, and she now presents for further evaluation and workup. X-ray of the hip showed degenerative arthritis, but no definite fracture, though possibility of impacted femoral neck fracture cannot be excluded. CT of the right lower extremity, which I reviewed with Dr. Wilson of Radiology, demonstrated extensive sclerotic densities in the right acetabular roof, proximal right femur, and right iliac bone that may be consistent with fibrous dysplasia or metastatic disease. There is disease in the left pelvis and proximal left femur. There is marked right hip degenerative joint changes, and a small right hip joint effusion. There is a possible acute fracture involving the right inferior pubic ramus though this is subtle. She has just returned from bone scan and reports that she had pain when moving to the table. She is unable to bear weight without pain and moving in the bed also exacerbates the pain. She is comfortable when she is lying on her back. She denies numbness or tingling in the lower extremities, changes in bowel/bladder habits including incontinence or constipation, back pain, fever, chills, headaches. She was seen by the orthopedic service and no surgical intervention is planned at this time. A recommendation for partial weightbearing after physical therapy evaluation is noted. Results of the bone scan are awaited. She further describes the hip pain as sensitivity to pressure and touch in the right lateral hip region. The pain radiates to the groin and thigh. She has no pain on the left side. PAST MEDICAL HISTORY: Breast conserving surgery in 2000 and 2002, bilateral mastectomy in 2012, hysterectomy, cholecystectomy, appendectomy, pleurodesis with malignant effusion, polio myelitis, GERD, paroxysmal atrial fibrillation on anticoagulation, pulmonary embolism on tamoxifen (which was switched to Arimidex ), longstanding history of osteoarthritis, anxiety and depression, tonsillectomy, dilatation and curettage. PAST SURGICAL HISTORY: As noted above. ALLERGIES: CODEINE, EPINEPHRINE, DEMEROL, MORPHINE, PERCOCET, OXYCODONE, CEPHALEXIN, DIAZEPAM, TORADOL, COMPAZINE, AMPICILLIN, CIPROFLOXACIN, CLINDAMYCIN, FENTANYL, PIPERACILLIN, VANCOMYCIN. SOCIAL HISTORY: She is a never-smoker and does not consume alcohol. Lives in [place]. FAMILY HISTORY: Brother had bladder cancer and sister had breast cancer. 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 REVIEW OF SYSTEMS: Right hip pain as noted. No recent weight loss or change in appetite. PHYSICAL EXAMINATION General: She has just returned from Nuclear Medicine on the stretcher. She is accompanied by her sister. She is in no acute distress except on movement. Vital signs: Temperature 98.3, blood pressure 145/66, pulse 74, respiratory rate 20, SaO2 97% on 2 L nasal cannula. HEENT: Normocephalic and atraumatic. Mucous membranes are moist. Sclerae anicteric. Oral cavity is clear. No cervical or supraclavicular adenopathy. Chest: Status post bilateral mastectomy. No axillary adenopathy. Decreased breath sounds on lung exam. Abdomen: Soft, nontender. Extremities: No edema. Musculoskeletal: Right lateral hip tenderness on palpation. No mass or swelling. Unable to examine range of motion due to discomfort. Neurologic: Sensation to light touch is intact bilaterally in the lower extremities. No gross motor deficit. Coordination and gait were not tested. RADIOLOGIC DATA: As noted above. PATHOLOGIC DATA: As noted above. LABORATORY DATA: WBC 9.1, hemoglobin 12.8, platelet 151,000. Electrolytes within normal limits, BUN 9, creatinine 0.3, calcium 9.1, albumin 3.2. Liver function test within normal limits. IMPRESSION: A 76-year-old woman with history of bilateral breast cancer status post bilateral mastectomy with subsequent metastatic recurrence in the lung and liver with malignant effusion. On Arimidex with reported clinical response per the patient. She had PET CT last year which showed interval change and improvement of the liver metastases. She is now admitted for worsening acute right hip pain, exacerbated with movement and weightbearing and currently nonambulatory. I reviewed the CT scan with Radiology. There are extensive degenerative and sclerotic changes in the right hip and pelvis that may be consistent with fibrous dysplasia as well as metastases. There is a subtle inferior pubic ramus change suggestive of a fracture. An MRI would not be helpful to further delineate the fracture per Dr. Beebe. She was seen by Dr. Rivera, and no surgical intervention is planned at this time, though recommendation for partial weightbearing after physical therapy evaluation. PLAN: As this is clinically suspicious for metastatic process underlying her hip pain, we will await the bone scan results and request the prior PET CT evaluations for comparison. If there is convincing evidence of metastatic bony disease, she would benefit from a course of palliative radiation therapy, which was discussed. She will need pain management evaluation, as she has multiple allergies, and orthopedic followup. She should continue Arimidex. I will continue to follow her with you. Thank you for asking me to see this patient. RADHA ARGUELLO M.D. [id number] MTDD
[2016-11-27 08:03] LABS: BASOPHIL 0.5 % (0-2.0); EOSINOPHIL 2.7 % (0-4.5); MCH 27.3 pg (25.7-33.7); MCHC 33.6 g/dl (32.0-36.0); MEAN CELL VOLUME 81.3 fl (80-96); MEAN PLT VOLUME 8.6 fl (7.5-11.1); NEUTROPHILS 73.5 % (42.8-82.8); PLATELET COUNT 144 K/MM3 (134-434); WHITE BLOOD COUNT 8.8 K/mm3 (4.0-10.0)
[2016-11-27 08:45] LABS: ALBUMIN 3.2 g/dl (3.4-5.0); ALK PHOS 73 U/L (45-117); ANION GAP 9 (8-16); BILIRUBIN,TOTAL 0.3 mg/dL (0.2-1.0); CALCIUM 8.7 mg/dL (8.5-10.1); CO2 27 mmol/L (21-32); COCKROFT - GAULT 188.785; CREATININE 0.4 mg/dL (0.55-1.02); GLUCOSE,RANDOM 115 mg/dL (74-106); SGOT/AST 11 U/L (15-37); SGPT/ALT 17 U/L (12-78); TOT PROT 5.9 g/dl (6.4-8.2)
--- NOTE | 2016-11-27 09:30 | PN ---
Progress Note, Physician Chief Complaint: no acute distress Anxious- had long day yesterday with extensive imaging test. Having pain in hip Palpitations but NSR on tele. - Current Medication List Current Medications: Active Medications Acetaminophen (Tylenol -) 650 mg PO Q6H PRN PRN Reason: FEVER OR PAIN Last Admin: 11/26/16 19:06 Dose: 650 mg Anastrozole (Arimidex -) 1 mg PO DAILY [facility] Last Admin: 11/26/16 09:59 Dose: 1 mg Bisacodyl (Dulcolax Suppository -) 10 mg RC PRN PRN PRN Reason: CONSTIPATION Cholecalciferol (Vitamin D3 -) 4,000 unit PO DAILY [facility] Last Admin: 11/26/16 09:59 Dose: 4,000 unit Diphenhydramine HCl (Benadryl -) 50 mg PO Q6H PRN PRN Reason: ANXIETY Docusate Sodium (Colace -) 100 mg PO BID [facility] Last Admin: 11/26/16 22:43 Dose: 100 mg Heparin Sodium (Porcine) (Heparin -) 1,000 unit IVPUSH PRN PRN PRN Reason: Heparin Heparin Sodium (Porcine) (Heparin -) 5,000 unit IVPUSH PRN PRN PRN Reason: Heparin Heparin Sodium/Dextrose (Heparin Infusion -) 500 mls @ 20 mls/hr IVPB TITR FAN ; 1,000 UNITS/HR PRN Reason: Protocol Last Admin: 11/26/16 19:08 Dose: 20 mls/hr Polyethylene Glycol (Miralax (For Daily Use) -) 17 gm PO DAILY [facility] Last Admin: 11/26/16 09:59 Dose: 17 gm Ranitidine HCl (Zantac -) 150 mg PO BID PRN PRN Reason: INDIGESTION Last Admin: 11/26/16 22:42 Dose: 150 mg Senna (Senna -) 2 tab PO HS [facility] Last Admin: 11/26/16 22:50 Dose: Not Given - Objective Vital Signs: Vital Signs Temperature 97.6 F 11/27/16 05:45 Pulse Rate 76 11/27/16 05:45 Respiratory Rate 20 11/27/16 05:45 Blood Pressure 141/67 11/27/16 05:45 O2 Sat by Pulse Oximetry (%) 97 11/26/16 21:00 Constitutional: Yes: No Distress Cardiovascular: Yes: Regular Rate and Rhythm Respiratory: Yes: CTA Bilaterally Gastrointestinal: Yes: Soft Edema: No Neurological: Yes: Alert, Oriented Labs: CBC, BMP 11/27/16 05:35 11/27/16 05:35 INR, PTT INR 1.21 (0.82-1.09) H 11/24/16 17:30 Laboratory Tests 11/27/16 11/27/16 11/27/16 05:35 05:35 05:35 WBC 8.8 Hgb 12.6 Plt Count 144 PTT (Actin FS) 71.4 H Sodium 143 Potassium 4.0 Creatinine 0.4 L D Problem List - Problems (1) Inability to ambulate due to hip Code(s): R26.2 - DIFFICULTY IN WALKING, NOT ELSEWHERE CLASSIFIED (2) Paroxysmal a-fib Code(s): I48.0 - PAROXYSMAL ATRIAL FIBRILLATION (3) Pulmonary embolism on long-term anticoagulation therapy Code(s): I26.99 - OTHER PULMONARY EMBOLISM WITHOUT ACUTE COR PULMONALE Z79.01 - FOUNDRY SUPERINTENDANT (CURRENT) USE OF ANTICOAGULANTS (4) Metastatic breast cancer Code(s): C50.919 - MALIGNANT NEOPLASM OF UNSP SITE OF UNSPECIFIED FEMALE BREAST C79.9 - SECONDARY MALIGNANT NEOPLASM OF UNSPECIFIED SITE Assessment/Plan Assessment/Plan Problem List - Problems (1) Inability to ambulate due to hip Assessment/Plan: -CT without evidence of femoral fracture; pubic ramus fracture -Possible impending pathologic fracture, awaits bone scan result -Rad-Onc note reviewed. -Ortho eval noted. Code(s): R26.2 - DIFFICULTY IN WALKING, NOT ELSEWHERE CLASSIFIED (2) Paroxysmal a-fib Assessment/Plan: -Currently in sinus, Continue AC. Can D/C telemetry -Was switched from Lovenox to heparin gtts in case surgery is required. Code(s): I48.0 - PAROXYSMAL ATRIAL FIBRILLATION (3) Pulmonary embolism on long-term anticoagulation therapy Assessment/Plan: -July 2015 -repeat echo this admission showed normal LV and RV fxn, recovered RV fxn. Code(s): I26.99 - OTHER PULMONARY EMBOLISM WITHOUT ACUTE COR PULMONALE Z79.01 - NURSING HOME (CURRENT) USE OF ANTICOAGULANTS (4) Metastatic breast cancer Assessment/Plan: -as per PMD and oncology Code(s): C50.919 - MALIGNANT NEOPLASM OF UNSP SITE OF UNSPECIFIED FEMALE BREAST C79.9 - SECONDARY MALIGNANT NEOPLASM OF UNSPECIFIED SITE
[2016-11-27] MEDS: CHOLECALCIFEROL (VITAMIN D3) 1,000 UNIT TABLET (FP) PO SCH (10:12)
[2016-11-27] MEDS: POLYETHYLENE GLYCOL 3350 119 GM BTL PO SCH (10:13)
[2016-11-27] MEDS: DOCUSATE SODIUM 100 MG CAPSULE (FP) PO SCH ×2 (10:13→21:49)
[2016-11-27] MEDS: ANASTROZOLE 1 MG TABLET PO SCH (10:17)
--- NOTE | 2016-11-27 10:47 | PN ---
Progress Note (short form) - Note Progress Note: COMFORTABLE NO CHANGE BONE SCAN RESULTS PENDING PLAN: OOB, PT - WBAT, MO ORTHOPEDIC INTERVENTION AT THIS TIME
--- NOTE | 2016-11-27 16:26 | CONSULT ---
Consult Consult Specialty:: Medical Oncology Referred by:: Geovanni Bowers Reason for Consultation:: PainR hip,met breast cancer - History of Present Illness Chief Complaint: acute onset pain in R hip History of Present Illness: 76 y/o F w hx b/l mast for ER + breast cancer , developed lung mets/pleural effusions,bone mets,liver mets , had PE on tamoxifen, been on Arimidex 1mg qd X 1 year w PET /CT 4 mo ago showing some improvement; now pt w acute onset of pain centered in R hip 05/04 while ambulating , no radiation, no back pain; pain worse on movement /ambulation.X-rays pelvis ,CT ext,bone scan all c/w bony mets although pt has hx degen. disease in the hips and hip replacement once discussed. There is no documented fx so far. Pt seen by RT and a palliative course planned.The likelihood is that pt is losing response to Arimidex , although we cannot make a direct comparison to old studies at this time.Pt has many allergies to narcotics and only takes tylenol. - History Source History Provided By: Patient, Family Member Limitations to Obtaining History: No Limitations - Past Medical History [employer] WORK[employer]: No: Alzheimer's, CVA, Dementia, Migraine, Multiple Sclerosis, Peripheral Neuropathy, Parkinson's, Seizure, Syncope, TIA, Vertigo, Other Cardio/Vascular: Yes: AFIB, Deep Vein Thrombosis Pulmonary: Yes: Other (recurrent left malignant effusion s/p VATS) Gastrointestinal: Yes: GERD. No: Ascites Hepatobiliary: No: Cirrhosis, Cholelithiasis, Cholecystitis, Choledocholithiasis , Hepatitis A, Hepatitis B, Hepatitis C, Other Renal/: No: Renal Failure ...: No Heme/Onc: Yes: Cancer (on Arimidex), Other (hormonal Rx) Infectious Disease: No: AIDS Psych: No: Addictions Musculoskeletal: Yes: Other (left lower ext post-polio) Rheumatology: No: Fibromyalgia, Gout, Lupus, Rheumatoid Arthritis, Sarcoidosis, Vasculitis, Other Endocrine: No: Chris's Disease, Talco's Disease, Diabetes Insipidus, Diabetes Mellitus, Hyperparathyroidism, Hyperthyroidism, Hypothyroidism, Osteopenia, SIADH, Other Dermatology: No: Basal Cell, Cellulitis, Eczema, Melanoma, Psoriasis, Squamous Cell, Other Additional Medical History: 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,cholecystectomy appendectomy - Past Surgical History Past Surgical History: Yes: Appendectomy, Cholecystectomy, Mastectomy (bilateral ) - Alcohol/Substance Use Hx Alcohol Use: No - Smoking History Smoking history: Never smoked Have you smoked in the past 12 months: No - Social History ADL: Independent History of Recent Travel: No Home Medications - Allergies Allergies/Adverse Reactions: Allergies Allergy/AdvReac Type Severity Reaction Status Date / Time codeine [Codeine] Allergy Severe DIZZINESS Verified 05/07/16 07:36 epinephrine Allergy Severe PALPITATION Verified 05/07/16 07:36 meperidine HCl [From Demerol] Allergy Severe Nausea Verified 05/07/16 07:36 morphine Allergy Severe WEAKNESS Verified 05/07/16 07:36 oxycodone HCl [From Percocet] Allergy Severe Nausea Verified 05/07/16 07:36 cephalexin [Cephalexin] Allergy Intermediate Hives Verified 05/07/16 07:36 diazepam [From Valium] Allergy Intermediate Hives Verified 05/07/16 07:36 ketorolac tromethamine Allergy Intermediate Hives Verified 05/07/16 07:36 [From Toradol] prochlorperazine edisylate Allergy Intermediate Hives Verified 05/07/16 07:36 [From Compazine] prochlorperazine maleate Allergy Intermediate Hives Verified 05/07/16 07:36 [From Compazine] ampicillin Allergy SEVERE RASH Verified 05/07/16 07:36 celery Allergy Verified 05/07/16 07:36 ciprofloxacin [From Cipro] Allergy SEVERE RASH Verified 05/07/16 07:36 ciprofloxacin HCl Allergy SEVERE RASH Verified 05/07/16 07:36 [From Cipro] clindamycin Allergy SEVERE RASH Verified 05/07/16 07:36 fentanyl Allergy Vomiting Verified 05/07/16 07:36 pineapple Allergy THROAT Verified 05/07/16 07:36 SWELLING piperacillin Allergy SEVERE RASH Verified 05/07/16 07:36 vancomycin Allergy SEVERE RASH Verified 05/07/16 07:36 - Home Medications Home Medications: Ambulatory Orders Ranitidine [Zantac -] 150 mg PO PRN PRN 06/24/12 Acetaminophen [Tylenol] 650 mg PO PRN 08/15/15 Diphenhydramine [Benadryl Capsule -] 50 mg PO Q6H PRN #120 capsule 08/26/15 Enoxaparin [Lovenox -] 90 mg SQ BID disp.syrin 08/26/15 Anastrozole [Arimidex -] 1 mg PO DAILY 05/06/16 Cholecalciferol (Vitamin D3) [Vitamin D3] 4,000 unit PO DAILY 05/06/16 Family Disease History - Family Disease History Family Disease History: CA: Brother (Bladder), Other: Father (bleeding ulcer), Mother (CHF) Review of Systems - Review of Systems Constitutional: denies: No Symptoms, Chills, Diaphoresis, Fever, Lethargy, Loss of Appetite, Malaise, Night Sweats, Unintentional Wgt. Loss, Weakness, Other Eyes: denies: No Symptoms, Blind Spots, Blurred Vision, Double Vision, Eye Pain , Floaters, Photophobia, Recent Change in Vision, Other HENT: denies: No Symptoms, Difficult Swallowing, Ear Discharge, Ear Pain, Epistaxis, Gingival Bleeding, Hearing Loss, Mouth Swelling, Nasal Congestion, Ocular Prosthesis, Throat Pain, Toothache, Ringing in Ears, Other Neck: denies: No Symptoms, Decreased ROM, Lumps, Pain on Movement, Stiffness, Swollen Glands, Tenderness, Other Cardiovascular: denies: No Symptoms, Chest Pain, Edema, Palpitations, Shortness of Breath, Other Respiratory: reports: SOB on Exertion. denies: No Symptoms, Cough, Exercise Intolerance, Hemoptysis, Orthopnea, PND, Snoring, SOB, Wheezing, Other Gastrointestinal: reports: Constipation. denies: No Symptoms, Abdominal Pain, Bloating, Diarrhea, Dysphagia, Indigestion, Melena, Nausea, Rectal Bleeding, Vomiting, Vomiting Blood, Other Genitourinary: reports: No Symptoms Musculoskeletal: reports: Extremity Pain, Joint Pain Integumentary: denies: No Symptoms, Blister, Bruising, Change in Color, Eczema, Erythema, Incision, Lesions, Lump, Pallor, Pruritis, Rash, Wound, Other Neurological: denies: No Symptoms, Change in LOC, Change in Speech, Confusion, Dizziness, Headache, Incoordination, Numbness, Parasthesia, Pre-Existing Deficit , Seizure, Syncope, Tremors, Unsteady Gait, Weakness, Other Endocrine: reports: No Symptoms Hematology/Lymphatic: reports: No Symptoms Psychiatric: reports: No Symptoms Physical Exam Vital Signs: Vital Signs Temperature 98 F 11/27/16 15:05 Pulse Rate 80 11/27/16 15:05 Respiratory Rate 20 11/27/16 15:05 Blood Pressure 129/59 11/27/16 15:05 O2 Sat by Pulse Oximetry (%) 97 11/27/16 10:00 Constitutional: Yes: Calm, Obese Eyes: Yes: WNL HENT: Yes: WNL, Atraumatic, Normocephalic Neck: Yes: WNL, Supple, Trachea Midline Cardiovascular: Yes: WNL, S1, S2 Respiratory: Yes: Diminished Gastrointestinal: Yes: WNL, Normal Bowel Sounds, Soft, Abdomen, Obese. No: Ascites, Distention, Hematemesis, Hemorrhoids, Hepatomegaly, Hernia, Hyperactive Bowel Sounds, Hypoactive Bowel Sounds, Melena, Palpable Mass, Pulsatile Mass, Rectal Bleeding, Splenomegaly, Tenderness, Tenderness, Epigastrium, Tenderness, Rebound, Vomiting, Other Breast(s): Yes: Other (b/l mast.) Musculoskeletal: Yes: Other (decreased ROM R hip) Extremities: Yes: WNL Edema: No Integumentary: Yes: WNL Neurological: Yes: WNL, Alert. No: Oriented, Aphasia, Asterixis, Ataxia, Babinski positive, Babinski negative, Confusion, Cran Nerves II-XII Intact, Dysarthria, Facial Droop, Lethargy, Loss of Sensation, Numbness, Paresthesia, Pre-Existing Deficit, Seizure, Tingling, Tremors, Unresponsive, Unsteady Gait, Weakness, Other Psychiatric: Yes: WNL Labs: CBC, BMP 11/27/16 05:35 11/27/16 05:35 Problem List - Problems (1) Metastatic breast cancer Code(s): C50.919 - MALIGNANT NEOPLASM OF UNSP SITE OF UNSPECIFIED FEMALE BREAST C79.9 - SECONDARY MALIGNANT NEOPLASM OF UNSPECIFIED SITE (2) 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 Code(s): G89.3 - NEOPLASM RELATED PAIN (ACUTE) (CHRONIC) C79.51 - SECONDARY MALIGNANT NEOPLASM OF BONE Assessment/Plan pt w significant pain due to bone mets R hip ,likely representing progression on Arimidex. For now .would agree w palliative RT .I doubt pt may be able to go back and forth from home for RT course ; need SW intervention for options to get pt through RT. Will review PET w Dr Velazquez .Dr Guzman to consider alternative Rx for future ,possibly Ibrance plus Femara, and Xgeva for bone health.An outpatient repeat PET will be helpful to assess the visceral disease.
--- NOTE | 2016-11-27 17:52 | PN ---
Physical Exam: SUBJECTIVE: Patient seen and examined. She states she is having intermittent periods of chest discomfort. OBJECTIVE: Will trend troponins x 3 for chest discomfort. Vital Signs Period Temp Pulse Resp BP Sys/Saul Pulse Ox Last 24 Hr 97.6 F-98 F 70-80 20-20 119-141/52-67 97-97 GENERAL: The patient is awake, alert, and fully oriented, in no acute distress. HEAD: Normal with no signs of trauma. EYES: PERRL, extraocular movements intact, sclera anicteric, conjunctiva clear. No ptosis. ENT: Ears normal, nares patent, oropharynx clear without exudates, moist mucous membranes. NECK: Trachea midline, full range of motion, supple. LUNGS: Breath sounds equal, clear to auscultation bilaterally, no wheezes, no crackles, no accessory muscle use. ABDOMEN: Soft, nontender, nondistended, normoactive bowel sounds, no guarding, no rebound, no hepatosplenomegaly, no masses. NEUROLOGICAL: Normal speech, gait not observed. PSYCH: Normal mood, normal affect. SKIN: Warm, dry, normal turgor, no rashes or lesions noted Laboratory Results - last 24 hr 11/27/16 11/27/16 11/27/16 05:35 05:35 05:35 WBC 8.8 RBC 4.62 Hgb 12.6 Hct 37.6 MCV 81.3 MCHC 33.6 RDW 16.0 H Plt Count 144 MPV 8.6 Neutrophils % 73.5 Lymphocytes % 18.3 Monocytes % 5.0 Eosinophils % 2.7 Basophils % 0.5 PTT (Actin FS) 71.4 H Sodium 143 Potassium 4.0 Chloride 107 Carbon Dioxide 27 Anion Gap 9 BUN 11 D Creatinine 0.4 L D Creat Clearance w eGFR > 60 Random Glucose 115 H Calcium 8.7 Total Bilirubin 0.3 AST 11 L D ALT 17 Alkaline Phosphatase 73 Troponin I Total Protein 5.9 L Albumin 3.2 L 11/27/16 13:50 WBC RBC Hgb Hct MCV MCHC RDW Plt Count MPV Neutrophils % Lymphocytes % Monocytes % Eosinophils % Basophils % PTT (Actin FS) Sodium Potassium Chloride Carbon Dioxide Anion Gap BUN Creatinine Creat Clearance w eGFR Random Glucose Calcium Total Bilirubin AST ALT Alkaline Phosphatase Troponin I < 0.02 Total Protein Albumin Active Medications Generic Name Dose Route Start Last Admin Trade Name Freq PRN Reason Stop Dose Admin Acetaminophen 650 mg 11/24/16 16:30 11/26/16 19:06 Tylenol - PO 650 mg Q6H PRN Administration FEVER OR PAIN Anastrozole 1 mg 11/25/16 10:00 11/27/16 10:17 Arimidex - PO 1 mg DAILY FAN Administration Bisacodyl 10 mg 11/25/16 19:04 Dulcolax Suppository - RC PRN PRN CONSTIPATION Cholecalciferol 4,000 unit 11/25/16 10:00 11/27/16 10:12 Vitamin D3 - PO 4,000 unit DAILY FAN Administration Diphenhydramine HCl 50 mg 11/24/16 16:19 Benadryl - PO Q6H PRN ANXIETY Docusate Sodium 100 mg 11/25/16 19:04 11/27/16 10:13 Colace - PO 100 mg BID FAN Administration Heparin Sodium (Porcine) 1,000 unit 11/24/16 16:23 Heparin - IVPUSH PRN PRN Heparin Heparin Sodium (Porcine) 5,000 unit 11/24/16 16:23 Heparin - IVPUSH PRN PRN Heparin Heparin Sodium/Dextrose 500 mls @ 20 mls/hr 11/24/16 16:30 11/26/16 19:08 Heparin Infusion - IVPB 20 mls/hr TITR FAN Administration Protocol 1,000 UNITS/HR Polyethylene Glycol 17 gm 11/25/16 19:15 11/27/16 10:13 Miralax (For Daily Use) - PO Not Given DAILY FAN Ranitidine HCl 150 mg 11/24/16 16:19 11/26/16 22:42 Zantac - PO 150 mg BID PRN Administration INDIGESTION Senna 2 tab 11/25/16 22:00 11/26/16 22:50 Senna - PO Not Given HS [facility] ASSESSMENT/PLAN: Patient is a 76 year old woman with a significant past medical history of metastatic breast cancer with a hx of bilateral mastectomy, recurrent malignant pleural effusions, paroxysmal atrial fibrillation and PE. She presented to the ER on 11/24/16 with inability to ambulate due to right hip pain for apx 10 days. Imaging: CT of LE w/o contrast 11/24/2016 - No CT evidence of fracture involving the right hip, a subtle acute fracture of the right inferior pubic ramus noted. Bone scan 11/26/2016: Bone scan findings suspicious for metastatic disease involving the thoracic, lumbar, spine, right pelvis, proximal femur and possible left rib cage. Muscular/Skeletal: Severe right hip pain - acute Assessment/Plan: No CT evidence of fracture involving the right hip, a subtle acute fracture of the right inferior pubic ramus noted. Ortho following Physical therapy consulted Bone scan with multiple sites of metastatic disease Hematology: Pulmonary Embolism history Assessment/Plan: On Heparin drip Cardiology following Cardiology: Paroxysmal atrial fibrillation Assessment/Plan: On heparin gtt Cardiology following Chest discomfort: Assessment/Plan: Patient reports intermittent episodes of chest discomfort Trend troponins x 3 Oncology: Metastatic bilateral breast cancer Assessment/Plan: On Arimidex Bone scan findings suspicious for metastatic disease involving the thoracic, lumbar, spine, right pelvis, proximal femur and possible left rib cage. F.E.N. Fluids: tolerating PO Electrolytes: monitor BMP Nutrition: low sodium Prophylaxis: GI: Zantac, Senna DVT: Heparin drip Disposition: Continues to require inpatient hospitalization. Full Code. Visit type - Emergency Visit Emergency Visit: Yes ED Registration Date: 11/24/16 Care time: The patient presented to the Emergency Department on the above date and was hospitalized for further evaluation of their emergent condition. - New Patient This patient is new to me today: Yes Date on this admission: 11/29/16 - Critical Care Critical Care patient: No - Discharge Referral Referred to [facility] No
--- NOTE | 2016-11-27 20:26 | PN ---
Progress Note (short form) - Note Progress Note: Rad Onc Rt hip pain remains the same, essentially non ambulatory. Now reports band like thoracic pain radiating anteriorly from T10 left paraspinal region. Denies numbness. Exam: No paraspinal mass or tenderness, no sensory level, strength equal 5/5 in upper extremities. Bone scan reviewed: Multiple areas of uptake in T-L spine, right pelvis/femur, and possibly left lateral rib cage c/w metastatic disease. Outside PET-CT in 2014/2015 showed similar distribution of metastatic disease. Dr. Randall and Dr. Haile notes reviewed and appreciated. Impression/Plan: Likely symptomatic progression of metastatic disease in hip on hormonal tx. 1) Outpatient palliative RT advised to help improve pain control in hip, minimize fracture. She'll need PT and probably STR. Will need SW to assist with placement for outpatient RT. If not feasible, will need to request inpatient treatment. 2) Please order MRI T-L spine with contrast to r/o epidural extension/cord impingement by vetebral mets. Pt requested MRI pelvis as indicated on BS report. 3) Discussed with Drs. Guzman and Lazara. Repeat PET-CT planned with consideration for change in systemic therapy after discharge. 4) No orthopedic intervention. PT and WBAT recommended. 5) Cont pain mgt.
[2016-11-27] MEDS: SENNOSIDES 8.6MG TABLET (FP) PO SCH (21:49)
[2016-11-28 08:00] LABS: BASOPHIL 0.4 % (0-2.0); WHITE BLOOD COUNT 9.4 K/mm3 (4.0-10.0)
[2016-11-28] MEDS ORDERED: PT OWN MED DRAWER 7, Y5N ONE (08:17)
[2016-11-28 08:38] LABS: ALBUMIN 3.4 g/dl (3.4-5.0); ANION GAP 8 (8-16); CALCIUM 9.3 mg/dL (8.5-10.1); CO2 28 mmol/L (21-32); CREATININE 0.3 mg/dL (0.55-1.02); GLUCOSE,RANDOM 104 mg/dL (74-106); SGOT/AST 9 U/L (15-37); SGPT/ALT 16 U/L (12-78)
[2016-11-28 08:39] LABS: EOSINOPHIL 2.9 % (0-4.5); MCH 26.7 pg (25.7-33.7); MCHC 32.7 g/dl (32.0-36.0); MEAN CELL VOLUME 81.7 fl (80-96); MEAN PLT VOLUME 8.9 fl (7.5-11.1); PLATELET COUNT 159 K/MM3 (134-434); RDW 16.1 % (11.6-15.6)
[2016-11-28 08:42] LABS: ALK PHOS 77 U/L (45-117); BILIRUBIN,TOTAL 0.4 mg/dL (0.2-1.0); TOT PROT 6.4 g/dl (6.4-8.2); TROPONIN I < 0.02 ng/ml (0.00-0.05)
[2016-11-28] MEDS: HEPARIN INFUSION - 500 ML IVPB SCH (10:00)
[2016-11-28] MEDS: ANASTROZOLE 1 MG TABLET PO SCH (10:41)
[2016-11-28] MEDS: CHOLECALCIFEROL (VITAMIN D3) 1,000 UNIT TABLET (FP) PO SCH (10:41)
[2016-11-28] MEDS: DOCUSATE SODIUM 100 MG CAPSULE (FP) PO SCH ×2 (10:41→22:45)
[2016-11-28] MEDS: POLYETHYLENE GLYCOL 3350 119 GM BTL PO SCH (10:41)
[2016-11-28] MEDS ORDERED: SIMETHICONE 80 MG TAB.CHEW (FP) PO ONE (11:41)
--- NOTE | 2016-11-28 12:55 | PN ---
Progress Note (short form) - Note Progress Note: PULMONARY NO SOB VSS/AFEBRILE ANICTERIC CLEAR S1S2 BS+ OBESE PAIN IN RIGHT HIP LABS/IMAGING/NOTES REVIEWED IMPENDING PATHOLOGICAL FRACTURE RIGHT HIP ORTHO/ONCO-RT NOTE REVIEWED BREAST CA BILATERAL WITH H/O LIVER METS/LEFT PLEURAL EFFUSION S/P PLEURODESIS STABLE RESP STATUS AGREE WITH RT PLEASE CALL IKE SINGER MD Problem List - Problems (1) Inability to ambulate due to hip Code(s): R26.2 - DIFFICULTY IN WALKING, NOT ELSEWHERE CLASSIFIED (2) Metastatic breast cancer Code(s): C50.919 - MALIGNANT NEOPLASM OF UNSP SITE OF UNSPECIFIED FEMALE BREAST C79.9 - SECONDARY MALIGNANT NEOPLASM OF UNSPECIFIED SITE (3) Paroxysmal a-fib Code(s): I48.0 - PAROXYSMAL ATRIAL FIBRILLATION (4) Pleural effusion Code(s): J90 - PLEURAL EFFUSION, NOT ELSEWHERE CLASSIFIED (5) Pulmonary emboli Code(s): I26.99 - OTHER PULMONARY EMBOLISM WITHOUT ACUTE COR PULMONALE
--- NOTE | 2016-11-28 15:06 | PN ---
Progress Note, Physician Chief Complaint: Pt has vague pains in lower back; no chest pain or dyspnea; no palpitations. Sister at bedside. History of Present Illness: Patient is a 75-year-old white woman with a significant past medical history of breast cancer (bilateral mastectomy 4 years ago), lung cancer (small cancer in hip, spine and liver), collapsed left lung, and recurrent pleural effusions presents with one week history of worsening hip pain. She describes 10/10 sharp right hip pain that radiates from hip to interior thigh. She states pain started when she was trying to sit in chair and felt sharp pain in hip. Pain has progressed to pain where she can not bear to move or bare weight on right leg. No loss of sensation of right leg. Denies fever, chills , abd. pain, - Current Medication List Current Medications: Active Medications Acetaminophen (Tylenol -) 650 mg PO Q6H PRN PRN Reason: FEVER OR PAIN Last Admin: 11/26/16 19:06 Dose: 650 mg Anastrozole (Arimidex -) 1 mg PO DAILY [facility] Last Admin: 11/28/16 10:41 Dose: 1 mg Bisacodyl (Dulcolax Suppository -) 10 mg RC PRN PRN PRN Reason: CONSTIPATION Cholecalciferol (Vitamin D3 -) 4,000 unit PO DAILY [facility] Last Admin: 11/28/16 10:41 Dose: 4,000 unit Diphenhydramine HCl (Benadryl -) 50 mg PO Q6H PRN PRN Reason: ANXIETY Docusate Sodium (Colace -) 100 mg PO BID [facility] Last Admin: 11/28/16 10:41 Dose: 100 mg Heparin Sodium (Porcine) (Heparin -) 1,000 unit IVPUSH PRN PRN PRN Reason: Heparin Heparin Sodium (Porcine) (Heparin -) 5,000 unit IVPUSH PRN PRN PRN Reason: Heparin Heparin Sodium/Dextrose (Heparin Infusion -) 500 mls @ 20 mls/hr IVPB TITR FAN ; 1,000 UNITS/HR PRN Reason: Protocol Polyethylene Glycol (Miralax (For Daily Use) -) 17 gm PO DAILY [facility] Last Admin: 11/28/16 10:41 Dose: Not Given Ranitidine HCl (Zantac -) 150 mg PO BID PRN PRN Reason: INDIGESTION Last Admin: 11/26/16 22:42 Dose: 150 mg Senna (Senna -) 2 tab PO HS FAN Last Admin: 11/27/16 21:49 Dose: Not Given - Objective Vital Signs: Vital Signs Temperature 98.4 F 11/28/16 05:19 Pulse Rate 80 11/28/16 05:19 Respiratory Rate 20 11/28/16 05:19 Blood Pressure 130/61 11/28/16 05:19 O2 Sat by Pulse Oximetry (%) 98 11/27/16 20:33 Constitutional: Yes: Anxious Eyes: Yes: WNL HENT: Yes: WNL Cardiovascular: Yes: S1, S2 Gastrointestinal: Yes: Soft ...Rectal Exam: Yes: Deferred Genitourinary: No: Anuria Musculoskeletal: Yes: Back Pain, Joint Swelling, Muscle Weakness Extremities: Yes: Cool Edema: Yes Edema: LLE: Trace, RLE: Trace Peripheral Pulses WNL: Yes Neurological: Yes: Alert, Oriented, Weakness Psychiatric: Yes: Alert, Oriented Labs: CBC, BMP 11/28/16 05:35 11/28/16 05:35 INR, PTT INR 1.21 (0.82-1.09) H 11/24/16 17:30 Problem List - Problems (1) Anxiety and depression Code(s): F41.9 - ANXIETY DISORDER, UNSPECIFIED F32.9 - MAJOR DEPRESSIVE DISORDER, SINGLE EPISODE, UNSPECIFIED (2) Hypoxemia Code(s): R09.02 - HYPOXEMIA (3) Inability to ambulate due to hip Code(s): R26.2 - DIFFICULTY IN WALKING, NOT ELSEWHERE CLASSIFIED (4) Metastatic breast cancer Assessment/Plan: f/u with oncologist. Code(s): C50.919 - MALIGNANT NEOPLASM OF UNSP SITE OF UNSPECIFIED FEMALE BREAST C79.9 - SECONDARY MALIGNANT NEOPLASM OF UNSPECIFIED SITE (5) 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 Assessment/Plan: Pt says she cannot tolerate pain medications. Code(s): G89.3 - NEOPLASM RELATED PAIN (ACUTE) (CHRONIC) C79.51 - SECONDARY MALIGNANT NEOPLASM OF BONE (6) Paroxysmal a-fib Assessment/Plan: Remains in normal sinus rhythm. Telemetry was discontinued. Code(s): I48.0 - PAROXYSMAL ATRIAL FIBRILLATION (7) Pleural effusion Code(s): J90 - PLEURAL EFFUSION, NOT ELSEWHERE CLASSIFIED (8) Pulmonary embolism on long-term anticoagulation therapy Code(s): I26.99 - OTHER PULMONARY EMBOLISM WITHOUT ACUTE COR PULMONALE Z79.01 - MCC (CURRENT) USE OF ANTICOAGULANTS (9) HTN (hypertension) Code(s): I10 - ESSENTIAL (PRIMARY) HYPERTENSION
--- NOTE | 2016-11-28 16:39 | PN ---
Physical Exam: SUBJECTIVE: Patient seen and examined. She is sitting up in bed, in no acute distress. She denies any chest pain or discomfort. OBJECTIVE: Vital Signs Period Temp Pulse Resp BP Sys/Saul Pulse Ox Last 24 Hr 98.0 F-99.9 F 75-95 20-20 122-144/53-83 98-98 GENERAL: The patient is awake, alert, and fully oriented, in no acute distress. HEAD: Normal with no signs of trauma. EYES: PERRL, extraocular movements intact, sclera anicteric, conjunctiva clear. No ptosis. ENT: Ears normal, nares patent, oropharynx clear without exudates, moist mucous membranes. NECK: Trachea midline, full range of motion, supple. LUNGS: Breath sounds equal, clear to auscultation bilaterally, no wheezes, no crackles, no accessory muscle use. ABDOMEN: Soft, nontender, nondistended, normoactive bowel sounds, no guarding, no rebound, no hepatosplenomegaly, no masses. NEUROLOGICAL: Normal speech, gait not observed. PSYCH: Normal mood, normal affect. SKIN: Warm, dry, normal turgor, no rashes or lesions noted Laboratory Results - last 24 hr 11/27/16 11/28/16 11/28/16 20:46 05:35 05:35 WBC RBC Hgb Hct MCV MCHC RDW Plt Count MPV Neutrophils % Lymphocytes % Monocytes % Eosinophils % Basophils % PTT (Actin FS) 43.5 H D Sodium 143 Potassium 4.0 Chloride 107 Carbon Dioxide 28 Anion Gap 8 BUN 11 Creatinine 0.3 L D Creat Clearance w eGFR > 60 Random Glucose 104 Calcium 9.3 Total Bilirubin 0.4 D AST 9 L ALT 16 Alkaline Phosphatase 77 Troponin I < 0.02 < 0.02 Total Protein 6.4 Albumin 3.4 11/28/16 05:35 WBC 9.4 RBC 4.77 Hgb 12.7 Hct 38.9 MCV 81.7 MCHC 32.7 RDW 16.1 H Plt Count 159 MPV 8.9 Neutrophils % 76.0 Lymphocytes % 16.6 Monocytes % 4.1 Eosinophils % 2.9 Basophils % 0.4 PTT (Actin FS) Sodium Potassium Chloride Carbon Dioxide Anion Gap BUN Creatinine Creat Clearance w eGFR Random Glucose Calcium Total Bilirubin AST ALT Alkaline Phosphatase Troponin I Total Protein Albumin Active Medications Generic Name Dose Route Start Last Admin Trade Name Freq PRN Reason Stop Dose Admin Acetaminophen 650 mg 11/24/16 16:30 11/26/16 19:06 Tylenol - PO 650 mg Q6H PRN Administration FEVER OR PAIN Anastrozole 1 mg 11/25/16 10:00 11/28/16 10:41 Arimidex - PO 1 mg DAILY [facility] Administration Bisacodyl 10 mg 11/25/16 19:04 Dulcolax Suppository - RC PRN PRN CONSTIPATION Cholecalciferol 4,000 unit 11/25/16 10:00 11/28/16 10:41 Vitamin D3 - PO 4,000 unit DAILY [facility] Administration Diphenhydramine HCl 50 mg 11/24/16 16:19 Benadryl - PO Q6H PRN ANXIETY Docusate Sodium 100 mg 11/25/16 19:04 11/28/16 10:41 Colace - PO 100 mg BID FAN Administration Heparin Sodium (Porcine) 1,000 unit 11/24/16 16:23 Heparin - IVPUSH PRN PRN Heparin Heparin Sodium (Porcine) 5,000 unit 11/24/16 16:23 Heparin - IVPUSH PRN PRN Heparin Heparin Sodium/Dextrose 500 mls @ 20 mls/hr 11/28/16 12:15 Heparin Infusion - IVPB TITR [facility] Protocol 1,000 UNITS/HR Polyethylene Glycol 17 gm 11/25/16 19:15 11/28/16 10:41 Miralax (For Daily Use) - PO Not Given DAILY [facility] Ranitidine HCl 150 mg 11/24/16 16:19 11/26/16 22:42 Zantac - PO 150 mg BID PRN Administration INDIGESTION Senna 2 tab 11/25/16 22:00 11/27/16 21:49 Senna - PO Not Given [facility] ASSESSMENT/PLAN: Patient is a 76 year old woman with a significant past medical history of metastatic breast cancer with a hx of bilateral mastectomy, recurrent malignant pleural effusions, paroxysmal atrial fibrillation and PE. She presented to the ER on 11/24/16 with inability to ambulate due to right hip pain for apx 10 days. Imaging: CT of LE w/o contrast 11/24/2016 - No CT evidence of fracture involving the right hip, a subtle acute fracture of the right inferior pubic ramus noted. Bone scan 11/26/2016: Bone scan findings suspicious for metastatic disease involving the thoracic, lumbar, spine, right pelvis, proximal femur and possible left rib cage. Muscular/Skeletal: Severe right hip pain - acute Assessment/Plan: No CT evidence of fracture involving the right hip, a subtle acute fracture of the right inferior pubic ramus noted. Ortho following Physical therapy consulted Bone scan with multiple sites of metastatic disease MRI of spine ordered Hematology: Pulmonary Embolism history Assessment/Plan: On Heparin drip Will convert back to her Lovenox home dose if no surgery planned Cardiology following Cardiology: Paroxysmal atrial fibrillation Assessment/Plan: On heparin gtt Cardiology following Chest discomfort: Assessment/Plan: Patient reports intermittent episodes of chest discomfort Denies chest discomfort today Troponins negative x 3 Oncology: Metastatic bilateral breast cancer Assessment/Plan: On Arimidex Bone scan findings suspicious for metastatic disease involving the thoracic, lumbar, spine, right pelvis, proximal femur and possible left rib cage. MRI of spine ordered F.E.N. Fluids: tolerating PO Electrolytes: monitor BMP Nutrition: low sodium Prophylaxis: GI: Zantac, Senna DVT: Heparin drip Disposition: Continues to require inpatient hospitalization. Full Code. Visit type - Emergency Visit Emergency Visit: Yes ED Registration Date: 11/24/16 Care time: The patient presented to the Emergency Department on the above date and was hospitalized for further evaluation of their emergent condition. - New Patient This patient is new to me today: No - Critical Care Critical Care patient: No - Discharge Referral Referred to [facility] Med P.C.: No
[2016-11-28] MEDS: HEPARIN NA (PORCINE) 5,000 UNITS/ML 1ML VIAL IVPUSH PRN (18:19)
[2016-11-28] MEDS: ACETAMINOPHEN 325 MG TABLET (FP) PO PRN (19:59)
[2016-11-28] MEDS: SENNOSIDES 8.6MG TABLET (FP) PO SCH (22:45)
[2016-11-29 08:00] LABS: BASOPHIL 0.5 % (0-2.0); EOSINOPHIL 3.2 % (0-4.5); MCH 27.3 pg (25.7-33.7); MCHC 33.4 g/dl (32.0-36.0); MEAN CELL VOLUME 81.6 fl (80-96); MEAN PLT VOLUME 8.4 fl (7.5-11.1); PLATELET COUNT 139 K/MM3 (134-434); RDW 16.2 % (11.6-15.6)
[2016-11-29 08:22] LABS: ALBUMIN 3.2 g/dl (3.4-5.0); ALK PHOS 72 U/L (45-117); ANION GAP 8 (8-16); BILIRUBIN,TOTAL 0.3 mg/dL (0.2-1.0); CALCIUM 8.8 mg/dL (8.5-10.1); CO2 28 mmol/L (21-32); COCKROFT - GAULT 188.785; CREATININE 0.4 mg/dL (0.55-1.02); GLUCOSE,RANDOM 107 mg/dL (74-106); SGOT/AST 7 U/L (15-37); SGPT/ALT 17 U/L (12-78)
[2016-11-29] MEDS ORDERED: PT OWN MED DRAWER 7, Y5N ONE (11:12)
[2016-11-29] MEDS: CHOLECALCIFEROL (VITAMIN D3) 1,000 UNIT TABLET (FP) PO SCH (11:18)
[2016-11-29] MEDS: POLYETHYLENE GLYCOL 3350 119 GM BTL PO SCH (11:19)
[2016-11-29] MEDS: ANASTROZOLE 1 MG TABLET PO SCH (11:19)
[2016-11-29] MEDS: DOCUSATE SODIUM 100 MG CAPSULE (FP) PO SCH ×2 (11:19→21:53)
[2016-11-29] MEDS: ACETAMINOPHEN 325 MG TABLET (FP) PO PRN ×2 (11:25→21:53)
--- NOTE | 2016-11-29 17:18 | PN ---
Physical Exam: SUBJECTIVE: Patient seen and examined. Denies chest pain or shortness of breath. States she is not having any pain/discomfort. OBJECTIVE: Vital Signs Period Temp Pulse Resp BP Sys/Saul Pulse Ox Last 24 Hr 97.7 F-98.3 F 72-81 20-20 102-126/55-64 99-99 GENERAL: The patient is awake, alert, and fully oriented, in no acute distress. HEAD: Normal with no signs of trauma. EYES: PERRL, extraocular movements intact, sclera anicteric, conjunctiva clear. No ptosis. ENT: Ears normal, nares patent, oropharynx clear without exudates, moist mucous membranes. NECK: Trachea midline, full range of motion, supple. ABDOMEN: Soft, nontender, nondistended, normoactive bowel sounds, no guarding, no rebound, no hepatosplenomegaly, no masses. NEUROLOGICAL: Normal speech, gait not observed. PSYCH: Normal mood, normal affect. SKIN: Warm, dry, normal turgor, no rashes or lesions noted Laboratory Results - last 24 hr 11/28/16 11/29/16 11/29/16 17:20 06:00 06:00 WBC 7.0 RBC 4.58 Hgb 12.5 Hct 37.4 MCV 81.6 MCHC 33.4 RDW 16.2 H Plt Count 139 MPV 8.4 Neutrophils % 72.0 Lymphocytes % 19.6 Monocytes % 4.7 Eosinophils % 3.2 Basophils % 0.5 PTT (Actin FS) 63.3 H D 63.4 H Sodium Potassium Chloride Carbon Dioxide Anion Gap BUN Creatinine Creat Clearance w eGFR Random Glucose Calcium Total Bilirubin AST ALT Alkaline Phosphatase Total Protein Albumin 11/29/16 06:00 WBC RBC Hgb Hct MCV MCHC RDW Plt Count MPV Neutrophils % Lymphocytes % Monocytes % Eosinophils % Basophils % PTT (Actin FS) Sodium 143 Potassium 4.0 Chloride 107 Carbon Dioxide 28 Anion Gap 8 BUN 11 Creatinine 0.4 L D Creat Clearance w eGFR > 60 Random Glucose 107 H Calcium 8.8 Total Bilirubin 0.3 D AST 7 L D ALT 17 Alkaline Phosphatase 72 Total Protein 6.0 L Albumin 3.2 L Active Medications Generic Name Dose Route Start Last Admin Trade Name Freq PRN Reason Stop Dose Admin Acetaminophen 650 mg 11/24/16 16:30 11/29/16 11:25 Tylenol - PO 650 mg Q6H PRN Administration FEVER OR PAIN Anastrozole 1 mg 11/25/16 10:00 11/29/16 11:19 Arimidex - PO 1 mg DAILY FAN Administration Bisacodyl 10 mg 11/25/16 19:04 Dulcolax Suppository - RC PRN PRN CONSTIPATION Cholecalciferol 4,000 unit 11/25/16 10:00 11/29/16 11:18 Vitamin D3 - PO 4,000 unit DAILY FAN Administration Diphenhydramine HCl 50 mg 11/24/16 16:19 Benadryl - PO Q6H PRN ANXIETY Docusate Sodium 100 mg 11/25/16 19:04 11/29/16 11:19 Colace - PO 100 mg BID FAN Administration Heparin Sodium (Porcine) 1,000 unit 11/24/16 16:23 11/28/16 18:19 Heparin - IVPUSH 1,000 unit PRN PRN Administration Heparin Heparin Sodium (Porcine) 5,000 unit 11/24/16 16:23 Heparin - IVPUSH PRN PRN Heparin Heparin Sodium/Dextrose 500 mls @ 20 mls/hr 11/28/16 12:15 11/28/16 10:00 Heparin Infusion - IVPB 22 mls/hr TITR FAN Administration Protocol 1,000 UNITS/HR Polyethylene Glycol 17 gm 11/25/16 19:15 11/29/16 11:19 Miralax (For Daily Use) - PO Not Given DAILY FAN Ranitidine HCl 150 mg 11/24/16 16:19 11/26/16 22:42 Zantac - PO 150 mg BID PRN Administration INDIGESTION Senna 2 tab 11/25/16 22:00 11/28/16 22:45 Senna - PO Not Given HS COUNTS INCLUDE 234 BEDS AT THE [facility] ASSESSMENT/PLAN: Patient is a 76 year old woman with a significant past medical history of metastatic breast cancer with a hx of bilateral mastectomy, recurrent malignant pleural effusions, paroxysmal atrial fibrillation and PE. She presented to the ER on 11/24/16 with inability to ambulate due to right hip pain for apx 10 days. Imaging: CT of LE w/o contrast 11/24/2016 - No CT evidence of fracture involving the right hip, a subtle acute fracture of the right inferior pubic ramus noted. Bone scan 11/26/2016: Bone scan findings suspicious for metastatic disease involving the thoracic, lumbar, spine, right pelvis, proximal femur, possible left rib cage. Thoracic spine MRI 11/28/2016: multiple mets disease deposits throughout the thoracic spine, no pathological fracture, epidural mass - no abnormal intra. enhancement. Muscular/Skeletal: Severe right hip pain - acute Assessment/Plan: No CT evidence of fracture involving the right hip, a subtle acute fracture of the right inferior pubic ramus noted. Thoracic spine MRI 11/28/2016: multiple mets disease deposits throughout the thoracic spine, no pathological fracture, epidural mass - no abnormal intra. enhancement. Bone scan with multiple sites of metastatic disease Physical therapy consulted Ortho following Hematology: Pulmonary Embolism history Assessment/Plan: On Heparin drip Will convert back to her Lovenox home dose if no surgery planned Cardiology following Cardiology: Paroxysmal atrial fibrillation Assessment/Plan: On heparin gtt Cardiology following Chest discomfort: Assessment/Plan: Patient reports intermittent episodes of chest discomfort Denies chest discomfort today Troponins negative x 3 Oncology: Metastatic bilateral breast cancer Assessment/Plan: On Arimidex Bone scan findings suspicious for metastatic disease involving the thoracic, lumbar, spine, right pelvis, proximal femur and possible left rib cage. MRI of spine as above F.E.N. Fluids: tolerating PO Electrolytes: monitor BMP Nutrition: low sodium Prophylaxis: GI: Zantac, Senna DVT: Heparin drip Disposition: Continues to require inpatient hospitalization. Full Code. Visit type - Emergency Visit Emergency Visit: Yes ED Registration Date: 11/24/16 Care time: The patient presented to the Emergency Department on the above date and was hospitalized for further evaluation of their emergent condition. - New Patient This patient is new to me today: No - Critical Care Critical Care patient: No - Discharge Referral Referred to [facility] Med P.C.: No
[2016-11-29] MEDS: HEPARIN INFUSION - 500 ML IVPB SCH (20:17)
[2016-11-29] MEDS: SENNOSIDES 8.6MG TABLET (FP) PO SCH (21:53)
[2016-11-30 07:52] LABS: BASOPHIL 0.5 % (0-2.0); EOSINOPHIL 2.4 % (0-4.5); MCH 27.1 pg (25.7-33.7); MEAN CELL VOLUME 82.1 fl (80-96); MEAN PLT VOLUME 8.5 fl (7.5-11.1); PLATELET COUNT 152 K/MM3 (134-434); RDW 16.2 % (11.6-15.6); WHITE BLOOD COUNT 8.9 K/mm3 (4.0-10.0)
[2016-11-30 08:04] LABS: ALBUMIN 3.3 g/dl (3.4-5.0); ALK PHOS 76 U/L (45-117); ANION GAP 10 (8-16); BILIRUBIN,TOTAL 0.5 mg/dL (0.2-1.0); CALCIUM 9.5 mg/dL (8.5-10.1); CO2 28 mmol/L (21-32); CREATININE 0.3 mg/dL (0.55-1.02); GLUCOSE,RANDOM 121 mg/dL (74-106); SGOT/AST 9 U/L (15-37); SGPT/ALT 18 U/L (12-78); TOT PROT 6.3 g/dl (6.4-8.2)
[2016-11-30] MEDS ORDERED: PT OWN MED DRAWER 7, Y5N ONE (11:11)
[2016-11-30] MEDS: ANASTROZOLE 1 MG TABLET PO SCH (11:49)
[2016-11-30] MEDS: CHOLECALCIFEROL (VITAMIN D3) 1,000 UNIT TABLET (FP) PO SCH (11:49)
[2016-11-30] MEDS: DOCUSATE SODIUM 100 MG CAPSULE (FP) PO SCH ×2 (11:49→22:28)
[2016-11-30] MEDS: POLYETHYLENE GLYCOL 3350 119 GM BTL PO SCH (11:50)
[2016-11-30] MEDS: RANITIDINE HCL 150 MG TABLET (FP) PO PRN (18:56)
[2016-11-30] MEDS: HEPARIN INFUSION - 500 ML IVPB SCH (22:28)
[2016-11-30] MEDS: SENNOSIDES 8.6MG TABLET (FP) PO SCH (22:28)
--- NOTE | 2016-12-01 00:35 | PN ---
Progress Note (short form) - Note Progress Note: chart reviewed patient seen and examined was able to ambulate within the room today able to bear weight and transfer bed to commode / to bedside chair CBC, [facility] 11/30/16 05:35 11/30/16 05:35 neck supple heart S1/S2 lungs clear bilat with decreased BS left base abd obese BS ++ gluteal area examined no open sore ext no edema CBC, BMP 11/30/16 05:35 11/30/16 05:35 Active Medications Acetaminophen (Tylenol -) 650 mg PO Q6H PRN PRN Reason: FEVER OR PAIN Last Admin: 11/29/16 21:53 Dose: 650 mg Anastrozole (Arimidex -) 1 mg PO DAILY [facility] Last Admin: 11/30/16 11:49 Dose: 1 mg Bisacodyl (Dulcolax Suppository -) 10 mg RC PRN PRN PRN Reason: CONSTIPATION Cholecalciferol (Vitamin D3 -) 4,000 unit PO DAILY [facility] Last Admin: 11/30/16 11:49 Dose: 4,000 unit Diphenhydramine HCl (Benadryl -) 50 mg PO Q6H PRN PRN Reason: ANXIETY Docusate Sodium (Colace -) 100 mg PO BID [facility] Last Admin: 11/30/16 22:28 Dose: Not Given Heparin Sodium (Porcine) (Heparin -) 1,000 unit IVPUSH PRN PRN PRN Reason: Heparin Last Admin: 11/28/16 18:19 Dose: 1,000 unit Heparin Sodium (Porcine) (Heparin -) 5,000 unit IVPUSH PRN PRN PRN Reason: Heparin Heparin Sodium/Dextrose (Heparin Infusion -) 500 mls @ 20 mls/hr IVPB TITR FAN ; 1,000 UNITS/HR PRN Reason: Protocol Last Admin: 11/30/16 22:28 Dose: 22 mls/hr Polyethylene Glycol (Miralax (For Daily Use) -) 17 gm PO DAILY [facility] Last Admin: 11/30/16 11:50 Dose: Not Given Ranitidine HCl (Zantac -) 150 mg PO BID PRN PRN Reason: INDIGESTION Last Admin: 11/30/16 18:56 Dose: 150 mg Senna (Senna -) 2 tab PO HS [facility] Last Admin: 11/30/16 22:28 Dose: Not Given Patient is a 76 year old woman with a significant past medical history of metastatic breast cancer with a hx of bilateral mastectomy, recurrent malignant pleural effusions, paroxysmal atrial fibrillation and PE. She presented to the ER on 11/24/16 with inability to ambulate due to right hip pain for apx 10 days. Imaging: CT of LE w/o contrast 11/24/2016 - No CT evidence of fracture involving the right hip, a subtle acute fracture of the right inferior pubic ramus noted. Bone scan 11/26/2016: Bone scan findings suspicious for metastatic disease involving the thoracic, lumbar, spine, right pelvis, proximal femur, possible left rib cage. ( known ) Thoracic spine MRI 11/28/2016: multiple mets disease deposits throughout the thoracic spine, no pathological fracture, epidural mass - no abnormal intra. enhancement. Muscular/Skeletal: Severe right hip pain - acute Assessment/Plan: No CT evidence of fracture involving the right hip, a subtle acute fracture of the right inferior pubic ramus noted. Thoracic spine MRI 11/28/2016: multiple mets disease deposits throughout the thoracic spine, no pathological fracture, epidural mass - no abnormal intra. enhancement. Bone scan with multiple sites of metastatic disease Physical therapy consulted Ortho following Hematology: Pulmonary Embolism history Assessment/Plan: On Heparin drip Will convert back to her Lovenox home dose if no surgery planned Cardiology following Cardiology: Paroxysmal atrial fibrillation Assessment/Plan: On heparin gtt Cardiology following Chest discomfort: Assessment/Plan: Patient reports intermittent episodes of chest discomfort Denies chest discomfort today Troponins negative x 3 Oncology: Metastatic bilateral breast cancer Assessment/Plan: On Arimidex Bone scan findings suspicious for metastatic disease involving the thoracic, lumbar, spine, right pelvis, proximal femur and possible left rib cage. MRI of spine as above F.E.N. Fluids: tolerating PO Electrolytes: monitor BMP Nutrition: low sodium Prophylaxis: GI: Zantac, Senna DVT: Heparin drip
[2016-12-01] MEDS: ACETAMINOPHEN 325 MG TABLET (FP) PO PRN ×2 (01:05→22:10)
[2016-12-01 07:46] LABS: ALBUMIN 3.2 g/dl (3.4-5.0); ANION GAP 13 (8-16); CALCIUM 8.8 mg/dL (8.5-10.1); CO2 25 mmol/L (21-32); GLUCOSE,RANDOM 117 mg/dL (74-106); MAGNESIUM 1.9 mg/dL (1.8-2.4)
[2016-12-01 07:52] LABS: ALK PHOS 69 U/L (45-117); BILIRUBIN,TOTAL 0.5 mg/dL (0.2-1.0); CREATININE 0.3 mg/dL (0.55-1.02); SGOT/AST 10 U/L (15-37); SGPT/ALT 16 U/L (12-78); TOT PROT 6.1 g/dl (6.4-8.2)
--- NOTE | 2016-12-01 09:31 | PN ---
Progress Note, Physician Chief Complaint: no chest pain Denies SOB - Current Medication List Current Medications: Active Medications Acetaminophen (Tylenol -) 650 mg PO Q6H PRN PRN Reason: FEVER OR PAIN Last Admin: 12/01/16 01:05 Dose: 650 mg Anastrozole (Arimidex -) 1 mg PO DAILY [facility] Last Admin: 11/30/16 11:49 Dose: 1 mg Bisacodyl (Dulcolax Suppository -) 10 mg RC PRN PRN PRN Reason: CONSTIPATION Cholecalciferol (Vitamin D3 -) 4,000 unit PO DAILY [facility] Last Admin: 11/30/16 11:49 Dose: 4,000 unit Diphenhydramine HCl (Benadryl -) 50 mg PO Q6H PRN PRN Reason: ANXIETY Docusate Sodium (Colace -) 100 mg PO BID [facility] Last Admin: 11/30/16 22:28 Dose: Not Given Heparin Sodium (Porcine) (Heparin -) 1,000 unit IVPUSH PRN PRN PRN Reason: Heparin Last Admin: 11/28/16 18:19 Dose: 1,000 unit Heparin Sodium (Porcine) (Heparin -) 5,000 unit IVPUSH PRN PRN PRN Reason: Heparin Heparin Sodium/Dextrose (Heparin Infusion -) 500 mls @ 20 mls/hr IVPB TITR FAN ; 1,000 UNITS/HR PRN Reason: Protocol Last Admin: 11/30/16 22:28 Dose: 22 mls/hr Polyethylene Glycol (Miralax (For Daily Use) -) 17 gm PO DAILY [facility] Last Admin: 11/30/16 11:50 Dose: Not Given Ranitidine HCl (Zantac -) 150 mg PO BID PRN PRN Reason: INDIGESTION Last Admin: 11/30/16 18:56 Dose: 150 mg Senna (Senna -) 2 tab PO HS [facility] Last Admin: 11/30/16 22:28 Dose: Not Given - Objective Vital Signs: Vital Signs Temperature 97.7 F 12/01/16 06:00 Pulse Rate 69 12/01/16 06:00 Respiratory Rate 18 12/01/16 06:00 Blood Pressure 118/61 12/01/16 06:00 O2 Sat by Pulse Oximetry (%) 100 11/30/16 21:00 Constitutional: Yes: No Distress Cardiovascular: Yes: Regular Rate and Rhythm Respiratory: Yes: CTA Bilaterally Gastrointestinal: Yes: Soft (non-tender) Edema: No Neurological: Yes: Alert, Oriented ...Motor Strength: WNL Labs: CBC, BMP 11/30/16 05:35 12/01/16 05:35 INR, PTT INR 1.21 (0.82-1.09) H 11/24/16 17:30 Laboratory Tests 11/30/16 12/01/16 12/01/16 05:35 05:35 05:35 WBC 8.9 Hgb 13.1 Plt Count 152 PTT (Actin FS) 46.3 H Sodium 143 BUN 11 Creatinine 0.3 L Problem List - Problems (1) Inability to ambulate due to hip Code(s): R26.2 - DIFFICULTY IN WALKING, NOT ELSEWHERE CLASSIFIED (2) Paroxysmal a-fib Code(s): I48.0 - PAROXYSMAL ATRIAL FIBRILLATION (3) Pulmonary embolism on long-term anticoagulation therapy Code(s): I26.99 - OTHER PULMONARY EMBOLISM WITHOUT ACUTE COR PULMONALE Z79.01 - NURSING HOME (CURRENT) USE OF ANTICOAGULANTS (4) Metastatic breast cancer Code(s): C50.919 - MALIGNANT NEOPLASM OF UNSP SITE OF UNSPECIFIED FEMALE BREAST C79.9 - SECONDARY MALIGNANT NEOPLASM OF UNSPECIFIED SITE Assessment/Plan PAF, in NSR History of PE Metastatic Breast CA REC: Agree w/ converting back to home oral AC as no surgery planned. Plan for XRT as outlined by Rad-Onc. Please call again as/if needed, will sign off today. Thank you.
[2016-12-01] MEDS ORDERED: PT OWN MED DRAWER 7, Y5N ONE (09:47)
[2016-12-01] MEDS: CHOLECALCIFEROL (VITAMIN D3) 1,000 UNIT TABLET (FP) PO SCH (10:25)
[2016-12-01] MEDS: ANASTROZOLE 1 MG TABLET PO SCH (10:26)
[2016-12-01] MEDS: DOCUSATE SODIUM 100 MG CAPSULE (FP) PO SCH ×2 (10:26→21:34)
[2016-12-01] MEDS: POLYETHYLENE GLYCOL 3350 119 GM BTL PO SCH (10:26)
[2016-12-01] MEDS: HEPARIN NA (PORCINE) 5,000 UNITS/ML 1ML VIAL IVPUSH PRN (12:19)
[2016-12-01] MEDS: HEPARIN INFUSION - 500 ML IVPB SCH (12:19)
--- NOTE | 2016-12-01 15:50 | CONSULT ---
Consult - text type - Consultation Consultation Note: Podiatry Consultation: 76 year old F presented to hospital for admission for worsening R hip pain x 10 days duration, history of metastatic breast CA. Podiatry consultation requested for elongated, discolored toe nails. She denies F/V/N/C/SOB/CP. PMHx: metastatic Breast CA, AFib on AC, h/o PE Meds: noted in chart ALL: codeine, epinephrine, meperidine, morphine JABARI: Pedal pulses palpable, TG wnl, CFT brisk to all toes bilaterally. Nails are elongated, discolored, thickened, brittle x 10. There is tenderness to palpation of nail units. There are no open wounds, no lacerations, no signs of infection. Imp: 76 year old F with onychomycosis 1. Manual debridement of mycotic nails x 10 with nail nipper. 2. Appropriate foot hygiene discussed. 3. Can f/u as outpatient in about 3 months. Thank you for the courtesy of this consultation. Harper Dias DPM
--- NOTE | 2016-12-01 19:04 | PN ---
Progress Note (short form) - Note Progress Note: Rad Onc Rt hip pain when moving but has started to ambulate with assistance. No pain when sitting. Exam: No paraspinal mass or tenderness, no sensory level, strength equal 5/5 in upper extremities. MRI T-spine reviewed: Multilevel vertebral mets largest at T5, T10, T12 with no epidural extension, cord compression, pathologic fx. Outside PET-CT in 2014/2015 showed similar distribution of metastatic disease. Impression/Plan: Likely symptomatic progression of metastatic disease in hip on hormonal tx. 1) Will likely benefit from short term rehab. Will need SW assistance. 2) Consider outpatient palliative RT to help improve pain control in hip, minimize fracture. If not feasible, will need to request inpatient treatment. 3) Repeat PET-CT planned as outpatient with consideration for change in systemic therapy. 4) No orthopedic intervention planned. Cont PT and WBAT. 5) Cont Arimidex.
[2016-12-01] MEDS: SENNOSIDES 8.6MG TABLET (FP) PO SCH (21:34)
[2016-12-01] MEDS: RANITIDINE HCL 150 MG TABLET (FP) PO PRN (21:34)
--- NOTE | 2016-12-01 23:18 | PN ---
Progress Note (short form) - Note Progress Note: love seen and examined in room states was able to ambulate to door way ( about 10 steps) continues with pain when moving hip review and appreciate Rad Onc note will discuss if possible to start radiation during this hosp stay Vital Signs Period Temp Pulse Resp BP Sys/Saul Pulse Ox Last 24 Hr 97.2 F-98.3 F 69-84 18-20 108-127/40-61 98 in bed anxious / depressed and crying neck supple heart S1/S2 Lungs clear bilat except for left base abd soft non tender / obese ext obese / movement of right leg will elicit pain Active Medications Acetaminophen (Tylenol -) 650 mg PO Q6H PRN PRN Reason: FEVER OR PAIN Last Admin: 12/01/16 22:10 Dose: 650 mg Anastrozole (Arimidex -) 1 mg PO DAILY [facility] Last Admin: 12/01/16 10:26 Dose: 1 mg Bisacodyl (Dulcolax Suppository -) 10 mg RC PRN PRN PRN Reason: CONSTIPATION Cholecalciferol (Vitamin D3 -) 4,000 unit PO DAILY [facility] Last Admin: 12/01/16 10:25 Dose: 4,000 unit Diphenhydramine HCl (Benadryl -) 50 mg PO Q6H PRN PRN Reason: ANXIETY Docusate Sodium (Colace -) 100 mg PO BID [facility] Last Admin: 12/01/16 21:34 Dose: 100 mg Enoxaparin Sodium (Lovenox -) 100 mg SQ BID [facility] Heparin Sodium/Dextrose (Heparin Infusion -) 500 mls @ 20 mls/hr IVPB TITR FAN ; 1,000 UNITS/HR PRN Reason: Protocol Last Titration: 12/01/16 21:34 Dose: 1,200 units/hr Polyethylene Glycol (Miralax (For Daily Use) -) 17 gm PO DAILY [facility] Last Admin: 12/01/16 10:26 Dose: Not Given Ranitidine HCl (Zantac -) 150 mg PO BID PRN PRN Reason: INDIGESTION Last Admin: 12/01/16 21:34 Dose: 150 mg Senna (Senna -) 2 tab PO HS [facility] Last Admin: 12/01/16 21:34 Dose: 2 tab Imaging: CT of LE w/o contrast 11/24/2016 - No CT evidence of fracture involving the right hip, a subtle acute fracture of the right inferior pubic ramus noted. Bone scan 11/26/2016: Bone scan findings suspicious for metastatic disease involving the thoracic, lumbar, spine, right pelvis, proximal femur, possible left rib cage. ( known ) Thoracic spine MRI 11/28/2016: multiple mets disease deposits throughout the thoracic spine, no pathological fracture, epidural mass - no abnormal intra. enhancement. 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 - discuss with Rad Onc possible treatment with radiation for pain management as patient is unable to take NSAIDS / currently only on Tylenol - although I think patient will require and benefit from STR -- she is reluctant to go - start lovenox SQ, will discontinue heparin drip patient was on SQ at home Problem List - Problems (1) 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 Code(s): G89.3 - NEOPLASM RELATED PAIN (ACUTE) (CHRONIC) C79.51 - SECONDARY MALIGNANT NEOPLASM OF BONE (2) Inability to ambulate due to hip Code(s): R26.2 - DIFFICULTY IN WALKING, NOT ELSEWHERE CLASSIFIED (3) Metastatic breast cancer Code(s): C50.919 - MALIGNANT NEOPLASM OF UNSP SITE OF UNSPECIFIED FEMALE BREAST C79.9 - SECONDARY MALIGNANT NEOPLASM OF UNSPECIFIED SITE (4) Paroxysmal a-fib Code(s): I48.0 - PAROXYSMAL ATRIAL FIBRILLATION (5) Anxiety and depression Code(s): F41.9 - ANXIETY DISORDER, UNSPECIFIED F32.9 - MAJOR DEPRESSIVE DISORDER, SINGLE EPISODE, UNSPECIFIED (6) Hypoxemia Code(s): R09.02 - HYPOXEMIA (7) Pulmonary embolism on long-term anticoagulation therapy Code(s): I26.99 - OTHER PULMONARY EMBOLISM WITHOUT ACUTE COR PULMONALE Z79.01 - CITY COLLECTOR (CURRENT) USE OF ANTICOAGULANTS (8) Shortness of breath Code(s): R06.02 - SHORTNESS OF BREATH (9) Polio Code(s): A80.9 - ACUTE POLIOMYELITIS, UNSPECIFIED
[2016-12-02] MEDS: ENOXAPARIN NA (PORCINE) 100 MG/1 ML DISP.SYRIN SQ SCH ×5 (01:12→21:46)
[2016-12-02 07:38] LABS: BASOPHIL 0.5 % (0-2.0); EOSINOPHIL 2.5 % (0-4.5); MCH 26.9 pg (25.7-33.7); MCHC 32.8 g/dl (32.0-36.0); MEAN CELL VOLUME 81.8 fl (80-96); MEAN PLT VOLUME 8.3 fl (7.5-11.1); PLATELET COUNT 147 K/MM3 (134-434); RDW 16.5 % (11.6-15.6)
[2016-12-02 08:44] LABS: CALCIUM 9.1 mg/dL (8.5-10.1); COCKROFT - GAULT 188.785; CREATININE 0.4 mg/dL (0.55-1.02)
--- NOTE | 2016-12-02 09:17 | PN ---
Progress Note (short form) - Note Progress Note: Ortho Pt seen and examined + ttp, decr rom, able to ambulate better nvi a/p PT RT will follow d/w Dr. Randall
[2016-12-02] MEDS ORDERED: PT OWN MED DRAWER 7, Y5N ONE (10:22)
[2016-12-02] MEDS: ANASTROZOLE 1 MG TABLET PO SCH (10:24)
[2016-12-02] MEDS: DOCUSATE SODIUM 100 MG CAPSULE (FP) PO SCH ×2 (10:24→21:47)
[2016-12-02] MEDS: CHOLECALCIFEROL (VITAMIN D3) 1,000 UNIT TABLET (FP) PO SCH (10:24)
[2016-12-02] MEDS: POLYETHYLENE GLYCOL 3350 119 GM BTL PO SCH (10:28)
--- NOTE | 2016-12-02 14:24 | PN ---
Progress Note (short form) - Note Progress Note: patient seen and examined in room sister at bedside -- discussed STR and radiation Onc Case also discussed with RT at this point patient is agreeable to STR at [facility] and out patient RT Vital Signs Period Temp Pulse Resp BP Sys/Saul Pulse Ox Last 24 Hr 97.5 F-98.8 F 66-84 20-20 104-131/40-66 98 neck supple heart reg lungs grossly clear abd soft obese ext obese CBC, BMP 12/02/16 06:00 12/02/16 06:00 Active Medications Acetaminophen (Tylenol -) 650 mg PO Q6H PRN PRN Reason: FEVER OR PAIN Last Admin: 12/01/16 22:10 Dose: 650 mg Anastrozole (Arimidex -) 1 mg PO DAILY [facility] Last Admin: 12/02/16 10:24 Dose: 1 mg Bisacodyl (Dulcolax Suppository -) 10 mg RC PRN PRN PRN Reason: CONSTIPATION Cholecalciferol (Vitamin D3 -) 4,000 unit PO DAILY [facility] Last Admin: 12/02/16 10:24 Dose: 4,000 unit Diphenhydramine HCl (Benadryl -) 50 mg PO Q6H PRN PRN Reason: ANXIETY Docusate Sodium (Colace -) 100 mg PO BID [facility] Last Admin: 12/02/16 10:24 Dose: 100 mg Enoxaparin Sodium (Lovenox -) 90 mg SQ BID [facility] Polyethylene Glycol (Miralax (For Daily Use) -) 17 gm PO DAILY [facility] Last Admin: 12/02/16 10:28 Dose: Not Given Ranitidine HCl (Zantac -) 150 mg PO BID PRN PRN Reason: INDIGESTION Last Admin: 12/01/16 21:34 Dose: 150 mg Senna (Senna -) 2 tab PO [facility] Last Admin: 12/01/16 21:34 Dose: 2 tab Imaging: CT of LE w/o contrast 11/24/2016 - No CT evidence of fracture involving the right hip, a subtle acute fracture of the right inferior pubic ramus noted. Bone scan 11/26/2016: Bone scan findings suspicious for metastatic disease involving the thoracic, lumbar, spine, right pelvis, proximal femur, possible left rib cage. ( known ) Thoracic spine MRI 11/28/2016: multiple mets disease deposits throughout the thoracic spine, no pathological fracture, epidural mass - no abnormal intra. enhancement. 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 - case discussed with Rad Onc treatment with radiation for pain management as out patient as patient is unable to take NSAIDS / currently only on Tylenol - STR discussed with patient and sister -- both agreeable at this time - started lovenox SQ, will discontinue heparin drip patient was on SQ at home - Patient had been at [facility] in the past and agreeable to return will request assistance for D/c Problem List - Problems (1) 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 Code(s): G89.3 - NEOPLASM RELATED PAIN (ACUTE) (CHRONIC) C79.51 - SECONDARY MALIGNANT NEOPLASM OF BONE (2) Inability to ambulate due to hip Code(s): R26.2 - DIFFICULTY IN WALKING, NOT ELSEWHERE CLASSIFIED (3) Metastatic breast cancer Code(s): C50.919 - MALIGNANT NEOPLASM OF UNSP SITE OF UNSPECIFIED FEMALE BREAST C79.9 - SECONDARY MALIGNANT NEOPLASM OF UNSPECIFIED SITE (4) Paroxysmal a-fib Code(s): I48.0 - PAROXYSMAL ATRIAL FIBRILLATION (5) Anxiety and depression Code(s): F41.9 - ANXIETY DISORDER, UNSPECIFIED F32.9 - MAJOR DEPRESSIVE DISORDER, SINGLE EPISODE, UNSPECIFIED (6) Hypoxemia Code(s): R09.02 - HYPOXEMIA (7) Pulmonary embolism on long-term anticoagulation therapy Code(s): I26.99 - OTHER PULMONARY EMBOLISM WITHOUT ACUTE COR PULMONALE Z79.01 - USP (CURRENT) USE OF ANTICOAGULANTS (8) Shortness of breath Code(s): R06.02 - SHORTNESS OF BREATH (9) Polio Code(s): A80.9 - ACUTE POLIOMYELITIS, UNSPECIFIED
[2016-12-02] MEDS: RANITIDINE HCL 150 MG TABLET (FP) PO PRN (21:47)
[2016-12-02] MEDS: ACETAMINOPHEN 325 MG TABLET (FP) PO PRN (21:49)
[2016-12-02] MEDS: SENNOSIDES 8.6MG TABLET (FP) PO SCH (21:50)
[2016-12-03] MEDS ORDERED: PT OWN MED DRAWER 7, Y5N ONE (09:27)
[2016-12-03] MEDS: CHOLECALCIFEROL (VITAMIN D3) 1,000 UNIT TABLET (FP) PO SCH (10:46)
[2016-12-03] MEDS: DOCUSATE SODIUM 100 MG CAPSULE (FP) PO SCH ×2 (10:46→22:43)
[2016-12-03] MEDS: ANASTROZOLE 1 MG TABLET PO SCH (10:48)
[2016-12-03] MEDS: ENOXAPARIN NA (PORCINE) 100 MG/1 ML DISP.SYRIN SQ SCH ×2 (10:49→22:44)
[2016-12-03] MEDS: POLYETHYLENE GLYCOL 3350 119 GM BTL PO SCH (10:49)
[2016-12-03] MEDS: ACETAMINOPHEN 325 MG TABLET (FP) PO PRN ×2 (10:50→22:45)
[2016-12-03] MEDS: SENNOSIDES 8.6MG TABLET (FP) PO SCH (22:44)
[2016-12-03] MEDS: RANITIDINE HCL 150 MG TABLET (FP) PO PRN (22:48)
[2016-12-04 06:00] VITALS: TEMP 98
[2016-12-04] MEDS ORDERED: PT OWN MED DRAWER 7, Y5N ONE (11:00)
[2016-12-04] MEDS: DOCUSATE SODIUM 100 MG CAPSULE (FP) PO SCH (11:07)
[2016-12-04] MEDS: ENOXAPARIN NA (PORCINE) 100 MG/1 ML DISP.SYRIN SQ SCH (11:07)
[2016-12-04] MEDS: ANASTROZOLE 1 MG TABLET PO SCH (11:07)
[2016-12-04] MEDS: CHOLECALCIFEROL (VITAMIN D3) 1,000 UNIT TABLET (FP) PO SCH (11:08)
[2016-12-04] MEDS: POLYETHYLENE GLYCOL 3350 119 GM BTL PO SCH (11:08)
[2016-12-04 14:17] VITALS: BP 136/59; PULSE 85
== END 2016-12-04 14:35 | DRG 543 ==
LOC: JER 10:37 → JERBED 15:44 → J4W 18:18 → J7W 11-28 21:17
PROVIDERS: ADMIT Internal Medicine; ATTEND Family Medicine
DX: C79.51 Secondary malignant neoplasm of bone (principal); C78.7 Secondary malignant neoplasm of liver and intrahepatic bile duct; C78.00 Secondary malignant neoplasm of unspecified lung; J91.8 Pleural effusion in other conditions classified elsewhere; M84.58XA Pathological fracture in neoplastic disease, other specified site, initial encounter for fracture; C50.919 Malignant neoplasm of unspecified site of unspecified female breast; N39.3 Stress incontinence (female) (male); K21.9 Gastro-esophageal reflux disease without esophagitis; I48.0 Paroxysmal atrial fibrillation; Z79.01 Long term (current) use of anticoagulants; G14 Postpolio syndrome; R26.2 Difficulty in walking, not elsewhere classified; Z85.3 Personal history of malignant neoplasm of breast; Z86.711 Personal history of pulmonary embolism; K59.00 Constipation, unspecified; E66.9 Obesity, unspecified; Z68.38 Body mass index [BMI] 38.0-38.9, adult; Z71.3 Dietary counseling and surveillance; G89.3 Neoplasm related pain (acute) (chronic)
CPT/HCPCS: 36415; 71010-TC; 72147-TC; 73523-TC; 73700-TC-RT; 78306-TC; 80048; 80053; 83735; 84100; 84484; 85025; 85027; 85610; 85730; 86850; 86900; 86901; 93005; 93010; 93306-TC; 97116-GP; 97161-GP; 99284-25; A9503; A9576; J1644

== ENCOUNTER 2017-01-13 13:46 | Inpatient (IN) | payer OTHER ==
[2017-01-13] MEDS ORDERED: SODIUM CHLORIDE 1,000 ML IV STA (14:38)
--- NOTE | 2017-01-13 16:24 | PDOC ---
History of Present Illness - General Chief Complaint: SIRS, Suspected/Possible Stated Complaint: R/O SEPSIS Time Seen by Provider: 01/13/17 14:06 History Source: Patient Exam Limitations: No Limitations - History of Present Illness Travel History: No Initial Comments: 01/13/17 17:35 76-year-old female with history of breast CA now with metastases to the bone and lung presents to the ED with complaints of fever, chills, diarrhea, left lower quadrant pain, and recent UTI. Patient states just completed Bactrim and she currently resides at [facility] under the care of Dr. Lim. Patient denies chest pain, shortness of breath, cough, headache, sore throat, dizziness, nausea, vomiting, or dysuria. Patient just completed radiation therapy last week and is followed by oncologist Dr. miller. Timing/Duration: reports: getting worse Quality: reports: moderate Abdominal Pain Onset Location: reports: LLQ Pain Radiation: reports: no radiation Activities at Onset: reports: none Aggravating Factors: improves with: None Alleviating Factors: improves with: None Past History - Past Medical History Allergies/Adverse Reactions: Allergies Allergy/AdvReac Type Severity Reaction Status Date / Time codeine [Codeine] Allergy Severe DIZZINESS Verified 01/13/17 14:32 epinephrine Allergy Severe PALPITATION Verified 01/13/17 14:32 meperidine HCl [From Demerol] Allergy Severe Nausea Verified 01/13/17 14:32 morphine Allergy Severe WEAKNESS Verified 01/13/17 14:32 oxycodone HCl [From Percocet] Allergy Severe Nausea Verified 01/13/17 14:32 cephalexin [Cephalexin] Allergy Intermediate Hives Verified 01/13/17 14:32 diazepam [From Valium] Allergy Intermediate Hives Verified 01/13/17 14:32 ketorolac tromethamine Allergy Intermediate Hives Verified 01/13/17 14:32 [From Toradol] prochlorperazine edisylate Allergy Intermediate Hives Verified 05/07/16 07:36 [From Compazine] prochlorperazine maleate Allergy Intermediate Hives Verified 01/13/17 14:32 [From Compazine] ampicillin Allergy SEVERE RASH Verified 01/13/17 14:32 celery Allergy Verified 01/13/17 14:32 ciprofloxacin [From Cipro] Allergy SEVERE RASH Verified 01/13/17 14:32 ciprofloxacin HCl Allergy SEVERE RASH Verified 01/13/17 14:32 [From Cipro] clindamycin Allergy SEVERE RASH Verified 01/13/17 14:32 fentanyl Allergy Vomiting Verified 01/13/17 14:32 pineapple Allergy THROAT Verified 01/13/17 14:32 SWELLING piperacillin Allergy SEVERE RASH Verified 01/13/17 14:32 vancomycin Allergy SEVERE RASH Verified 01/13/17 14:32 Home Medications: Ambulatory Orders Ranitidine [Zantac -] 150 mg PO PRN PRN 06/24/12 Acetaminophen [Tylenol] 650 mg PO PRN 08/15/15 Diphenhydramine [Benadryl Capsule -] 50 mg PO Q6H PRN #120 capsule 08/26/15 Enoxaparin [Lovenox -] 90 mg SQ BID disp.syrin 08/26/15 Anastrozole [Arimidex -] 1 mg PO DAILY 05/06/16 Cholecalciferol (Vitamin D3) [Vitamin D3] 4,000 unit PO DAILY 05/06/16 Anemia: No Asthma: No Cancer: Yes (BILAT BREAST;LUNG LEFT ? R hip) Cardiac Disorders: Yes (PALPITATIONS) CVA: No COPD: No CHF: No Dementia: No Diabetes: No GI Disorders: Yes (REFLUX) Disorders: Yes (UTI'S, STRESS INCONTINENCE) HTN: No Hypercholesterolemia: No Liver Disease: Yes (cyst) Seizures: No Thyroid Disease: No - Surgical History Abdominal Surgery: Yes Appendectomy: Yes (age 18) Cardiac Surgery: No Cholecystectomy: Yes (1997) Lung Surgery: Yes (pleurodesis) Neurologic Surgery: No Orthopedic Surgery: No - Immunization History Immunization Up to Date: Yes - Psycho/Social/Smoking Cessation Hx Anxiety: No Suicidal Ideation: No Smoking History: Never smoked Have you smoked in the past 12 months: No Hx Alcohol Use: No Drug/Substance Use Hx: No Substance Use Type: None Hx Substance Use Treatment: No Patient Lives Alone: No Lives with/in: [facility] Review of Systems - Review of Systems Able to Perform ROS?: Yes Constitutional: Yes: Chills, Fever, Weakness HEENTM: No: Symptoms Reported Respiratory: No: Symptoms reported ABD/GI: Yes: Diarrhea, Abdominal cramping (left side). No: Vomiting : No: Symptoms Reported Musculoskeletal: No: Symptoms Reported Integumentary: No: Symptoms Reported Neurological: Yes: Weakness. No: Headache *Physical Exam - Vital Signs Last Vital Signs Temp Pulse Resp BP Pulse Ox 99.2 F 73 18 109/43 98 01/13/17 14:27 01/13/17 14:27 01/13/17 14:27 01/13/17 14:27 01/13/17 14:27 - Physical Exam General Appearance: Yes: Nourished, Appropriately Dressed. No: Apparent Distress HEENT: positive: EOMI, ESEQUIEL, TMs Normal, Pharynx Normal. negative: Pale Conjunctivae Neck: positive: Supple Respiratory/Chest: positive: Lungs Clear, Normal Breath Sounds. negative: Respiratory Distress, Accessory Muscle Use Cardiovascular: positive: Regular Rhythm, Regular Rate. negative: Murmur Gastrointestinal/Abdominal: positive: Soft, Tenderness (llq) Rectal Exam: positive: other (noted excoriation around rectum) Musculoskeletal: negative: CVA Tenderness Extremity: positive: Normal Capillary Refill. negative: Pedal Edema Integumentary: positive: Normal Color, Warm, Moist Neurologic: positive: Motor Strength 5/5 (moving all extremities in bed) Heart Score/ECG Review - ECG Intrepretation Rhythm: Regular Rhythm (ormal sinus rhythm at 73. No acute changes noted when comparedto 11/24/16) ED Treatment Course - LABORATORY CBC & Chemistry Diagram: 01/13/17 15:55 01/13/17 15:55 - RADIOLOGY Radiology Studies Ordered: Category Date Time Status ABDOMEN & PELVIS CT W/O CONTR [CT] Stat CT Scan 01/13/17 15:25 Ordered CHEST X-RAY PORTABLE* [RAD] Stat Radiology 01/13/17 14:38 Completed Medical Decision Making - Medical Decision Making 01/13/17 16:45 Patient sent in by Dr. keen for for evaluation of fever and weakness, diarrhea and left lower quadrant pain concerning for sepsis. Patient arrives with an oral temperature of 99 2 and has been on [id number] Tylenol with completion of Bactrim yesterday for UTI. Patient then had left lower quadrant discomfort along with around her rectum. Patient ordered for septic workup and ordered for IV fluids secondary to BP of 106/44. Patient also ordered for abdominal CT with by mouth contrast to rule out diverticulitis. 01/13/17 17:46 Selected Entries 01/13/17 14:27 Temperature 99.2 F Pulse Rate 73 Respiratory 18 Rate Blood Pressure 109/43 Laboratory Tests 01/13/17 01/13/17 01/13/17 15:55 15:55 15:55 WBC 6.1 Hgb 13.1 Hct 40.2 Plt Count 131 L Neutrophils % 88.5 H INR 1.36 H PTT (Actin FS) 49.1 H D VBG pH POC VBG pCO2 Mixed VBG HCO3 Sodium 137 Potassium 4.0 Chloride 100 Carbon Dioxide 29 Anion Gap 8 BUN 9 Creatinine 0.5 L D Lactic Acid AST 14 L D ALT 23 D Troponin I < 0.02 Urine Blood Urine Nitrite Ur Leukocyte Esterase Urine WBC 01/13/17 01/13/17 01/13/17 15:55 16:30 16:40 WBC Hgb Hct Plt Count Neutrophils % INR PTT (Actin FS) VBG pH 7.39 POC VBG pCO2 43.6 Mixed VBG HCO3 25.8 H Sodium Potassium Chloride Carbon Dioxide Anion Gap BUN Creatinine Lactic Acid 0.9 AST ALT Troponin I Urine Blood 1+ H Urine Nitrite Negative Ur Leukocyte Esterase Negative Urine WBC [address] Adame and states took place consult in for Dr. [place] ID specialist. patient will be admitted to [facility] inpatient. *DC/Admit/Observation/Transfer Diagnosis at time of Disposition: Fever, Abdominal pain, Diarrhea - Discharge Dispostion Admit: Yes - Referrals Referrals: Sonya Adame MD [Primary Care Provider] -
[2017-01-13 16:27] LABS: BASOPHIL 0.3 % (0-2.0); EOSINOPHIL 1.7 % (0-4.5); MCH 26.6 pg (25.7-33.7); MCHC 32.7 g/dl (32.0-36.0); MEAN CELL VOLUME 81.4 fl (80-96); MEAN PLT VOLUME 8.4 fl (7.5-11.1); NEUTROPHILS 88.5 % (42.8-82.8); PLATELET COUNT 131 K/MM3 (134-434); RDW 16.9 % (11.6-15.6); WHITE BLOOD COUNT 6.1 K/mm3 (4.0-10.0)
[2017-01-13 16:36] LABS: INR 1.36 (0.82-1.09); PROTHROMBIN TIME (PATIENT) 15.1 SEC (9.98-11.88)
[2017-01-13 16:39] LABS: ACTIVATED PTT 49.1 SECONDS (26.9-34.4)
[2017-01-13 16:43] LABS: VENOUS PH 7.39 (7.32-7.42)
[2017-01-13 16:44] LABS: VENOUS BLOOD GAS HCO3 25.8 meq/L (19-25)
[2017-01-13 16:51] LABS: URINE APPEARANCE CLEAR; URINE BILIRUBIN NEGATIVE (NEGATIVE); URINE COLOR STRAW; URINE GLUCOSE (UA) NEGATIVE (NEGATIVE); URINE KETONE NEGATIVE (NEGATIVE); URINE LEUK ESTERASE NEGATIVE (NEGATIVE); URINE NITRITE NEGATIVE (NEGATIVE); URINE PROTEIN NEGATIVE (NEGATIVE); URINE UROBILINOGEN NEGATIVE E.U./dl (0.2-1.0)
[2017-01-13 16:56] LABS: ALBUMIN 3.7 g/dl (3.4-5.0); ANION GAP 8 (8-16); BILIRUBIN,TOTAL 0.4 mg/dL (0.2-1.0); CALCIUM 9.1 mg/dL (8.5-10.1); CO2 29 mmol/L (21-32); CREATININE 0.5 mg/dL (0.55-1.02); GLUCOSE,RANDOM 92 mg/dL (74-106); SGOT/AST 14 U/L (15-37); SGPT/ALT 23 U/L (12-78); TOT PROT 6.8 g/dl (6.4-8.2)
[2017-01-13 16:57] LABS: URINE BLOOD 1+ (NEGATIVE)
[2017-01-13 16:58] LABS: ALK PHOS 80 U/L (45-117); TROPONIN I < 0.02 ng/ml (0.00-0.05)
[2017-01-13 16:59] LABS: URINE BACTERIA RARE /hpf (NONE SEEN); URINE RBC 1 /hpf (0-3); URINE WBC 1 /hpf (3-5)
[2017-01-13] MEDS ORDERED: ACETAMINOPHEN 1000 MG/100 ML VIAL (NON FORMULARY) IVPB ONE (17:27)
[2017-01-13] MEDS ORDERED: ACETAMINOPHEN INJECTION 100 ML IVPB ONE (17:43)
[2017-01-13] MEDS ORDERED: diphenhydrAMINE HCL 25 MG CAPSULE (FP) PO PRN (23:34)
[2017-01-14] MEDS ORDERED: ENOXAPARIN NA (PORCINE) 30 MG/0.3 ML DISP.SYRIN SQ ONE (00:15)
[2017-01-14] MEDS ORDERED: ENOXAPARIN NA (PORCINE) 60 MG/0.6 ML DISP.SYRIN SQ ONE (00:15)
[2017-01-14] MEDS: ENOXAPARIN NA (PORCINE) 100 MG/1 ML DISP.SYRIN SQ SCH ×3 (00:20→21:59)
[2017-01-14] MEDS ORDERED: ONDANSETRON 4 MG/2 ML VIAL IVPB PRN (03:59)
[2017-01-14] MEDS ORDERED: ONDANSETRON 4 MG/2 ML VIAL ONE (03:59)
[2017-01-14] MEDS ORDERED: ACETAMINOPHEN 325 MG TABLET (FP) ONE (03:59)
[2017-01-14] MEDS: ACETAMINOPHEN 325 MG TABLET (FP) PO PRN (04:05)
[2017-01-14 04:30] VITALS: BMI 38.5
[2017-01-14 07:26] LABS: BASOPHIL 0.5 % (0-2.0); EOSINOPHIL 1.3 % (0-4.5); MCH 27.1 pg (25.7-33.7); MCHC 33.7 g/dl (32.0-36.0); MEAN CELL VOLUME 80.3 fl (80-96); MEAN PLT VOLUME 8.2 fl (7.5-11.1); NEUTROPHILS 89.2 % (42.8-82.8); PLATELET COUNT 106 K/MM3 (134-434); RDW 16.8 % (11.6-15.6); WHITE BLOOD COUNT 5.2 K/mm3 (4.0-10.0)
[2017-01-14 07:48] LABS: ANION GAP 8 (8-16); CALCIUM 8.3 mg/dL (8.5-10.1); CO2 26 mmol/L (21-32); GLUCOSE,RANDOM 127 mg/dL (74-106)
[2017-01-14 07:50] LABS: CREATININE 0.4 mg/dL (0.55-1.02)
--- NOTE | 2017-01-14 08:25 | HP ---
Admitting History and Physical - Admission Chief Complaint: fever chills post abx treatment History of Present Illness: 01/13/17 17:35 76-year-old female with history of breast CA, with metastases to the bone and lung.recent hospitalization for fx pelvis currently in STR. She was transferred to ER due to fever and chills, also c/o left lower quadrant pain - - but not persistent . She just completed full treatment with Bactrim for UTI. Patient is followed by Dr Guzman for oncology and just completed RT ( to pelvic area) 2 weeks ago. denies chest pain, shortness of breath, cough, headache, sore throat, dizziness, nausea, vomiting, or dysuria. History Source: Patient, Family Member, Medical Record Limitations to Obtaining History: No Limitations - Past Medical History Cardiovascular: Yes: AFIB, Deep Vein Thrombosis Pulmonary: Yes: Other (recurrent left malignant effusion s/p VATS) Gastrointestinal: Yes: Diverticulosis, GERD. No: Ascites Heme/Onc: Yes: Cancer (on Arimidex), Other (hormonal Rx) Psych: Yes: Depression Musculoskeletal: Yes: Other (left lower ext post-polio) - Past Surgical History Past Surgical History: Yes: Appendectomy, Cholecystectomy, Mastectomy (bilateral ) - Smoking History Smoking history: Never smoked Have you smoked in the past 12 months: No - Alcohol/Substance Use Hx Alcohol Use: No History of Substance Use: reports: None - Social History Usual Living Arrangement: Yes: Jail, Other (lives with sister) ADL: Independent History of Recent Travel: No Home Medications - Allergies Allergies/Adverse Reactions: Allergies Allergy/AdvReac Type Severity Reaction Status Date / Time codeine [Codeine] Allergy Severe DIZZINESS Verified 01/13/17 14:32 epinephrine Allergy Severe PALPITATION Verified 01/13/17 14:32 meperidine HCl [From Demerol] Allergy Severe Nausea Verified 01/13/17 14:32 morphine Allergy Severe WEAKNESS Verified 01/13/17 14:32 oxycodone HCl [From Percocet] Allergy Severe Nausea Verified 01/13/17 14:32 cephalexin [Cephalexin] Allergy Intermediate Hives Verified 01/13/17 14:32 diazepam [From Valium] Allergy Intermediate Hives Verified 01/13/17 14:32 ketorolac tromethamine Allergy Intermediate Hives Verified 01/13/17 14:32 [From Toradol] prochlorperazine edisylate Allergy Intermediate Hives Verified 05/07/16 07:36 [From Compazine] prochlorperazine maleate Allergy Intermediate Hives Verified 01/13/17 14:32 [From Compazine] ampicillin Allergy SEVERE RASH Verified 01/13/17 14:32 celery Allergy Verified 01/13/17 14:32 ciprofloxacin [From Cipro] Allergy SEVERE RASH Verified 01/13/17 14:32 ciprofloxacin HCl Allergy SEVERE RASH Verified 01/13/17 14:32 [From Cipro] clindamycin Allergy SEVERE RASH Verified 01/13/17 14:32 fentanyl Allergy Vomiting Verified 01/13/17 14:32 pineapple Allergy THROAT Verified 01/13/17 14:32 SWELLING piperacillin Allergy SEVERE RASH Verified 01/13/17 14:32 vancomycin Allergy SEVERE RASH Verified 01/13/17 14:32 - Home Medications Home Medications: Ambulatory Orders Ranitidine [Zantac -] 150 mg PO BID 06/24/12 Acetaminophen [Tylenol] 650 mg PO PRN 08/15/15 Diphenhydramine [Benadryl Capsule -] 50 mg PO Q6H PRN #120 capsule 08/26/15 Enoxaparin [Lovenox -] 90 mg SQ BID disp.syrin 08/26/15 Anastrozole [Arimidex -] 1 mg PO DAILY 05/06/16 Cholecalciferol (Vitamin D3) [Vitamin D3] 4,000 unit PO DAILY 05/06/16 Bismuth Subsalicylate [Kaopectate] 262 mg PO PRN PRN 01/13/17 Fluticasone Prop 0.05% Nasal [Flonase -] 1 - 2 spray NS DAILY 01/13/17 Hydrocortisone 1% Cream [Hytone 1% Cream -] 1 applic TP PRN 01/13/17 Nystatin 100,000 unit MC BID 01/13/17 Talc/Cellulos/Chloroxy/Aldioxa [Zeasorb Powder] 0 gm TP BID 01/13/17 Family Disease History - Family Disease History Family Disease History: CA: Brother (Bladder), Other: Father (bleeding ulcer), Mother (CHF) Review of Systems - Review of Systems Constitutional: reports: Chills, Fever, Loss of Appetite Eyes: reports: No Symptoms HENT: reports: No Symptoms Neck: reports: No Symptoms Cardiovascular: reports: No Symptoms Respiratory: reports: No Symptoms Gastrointestinal: reports: Abdominal Pain (left lower quadrant), Diarrhea Genitourinary: reports: Frequency Breasts: reports: Other (bilateral mastectomies) Musculoskeletal: reports: Back Pain, Joint Pain Integumentary: reports: Change in Color, Pruritis (perirectal), Rash Neurological: reports: Pre-Existing Deficit, Unsteady Gait, Weakness Endocrine: reports: No Symptoms Hematology/Lymphatic: reports: No Symptoms Psychiatric: reports: Depression Physical Examination Vital Signs: Vital Signs Temperature 98.8 F 01/14/17 06:00 Pulse Rate 83 01/14/17 04:26 Respiratory Rate 20 01/14/17 04:26 Blood Pressure 121/56 01/14/17 04:26 O2 Sat by Pulse Oximetry (%) 96 01/14/17 04:30 Constitutional: Yes: Well Nourished, No Distress, Obese Eyes: Yes: WNL HENT: Yes: Atraumatic, Normocephalic Neck: Yes: Supple, Trachea Midline Cardiovascular: Yes: WNL, Regular Rate and Rhythm Respiratory: Yes: WNL, CTA Bilaterally Gastrointestinal: Yes: Normal Bowel Sounds, Soft, Abdomen, Obese, Tenderness ( left lower quadrant) Breast(s): Yes: Other (mastectomy bilat) Musculoskeletal: Yes: WNL, Back Pain Extremities: Yes: WNL. No: Calf Tenderness, Cool, Cyanosis, Deformity, Erythema Edema: No Peripheral Pulses WNL: Yes Integumentary: Yes: Rash (perirectal / gluteal) Neurological: Yes: WNL, Alert, Oriented Psychiatric: Yes: Alert, Oriented, Other (depression) Labs: CBC, BMP 01/14/17 06:00 01/14/17 06:00 Problem List - Problems (1) Fever Assessment/Plan: fever post completed abx for + UTI @STR s/p RT / immune compromised / metastatic breast Ca plan landeros culture u/a appears clean ---await c/s skin inspected - no site of infection if febrile will repeat blood c/s patient with multiple medical allergies ID consulted will await c/s results. Code(s): R50.9 - FEVER, UNSPECIFIED (2) Abdominal pain Assessment/Plan: CT abdomen done / compared to previous Currently with Diarrhea -- probably due to contrast Gi consult requested Code(s): R10.9 - UNSPECIFIED ABDOMINAL PAIN (3) Breast cancer Assessment/Plan: s/p double mastectomy metastatic to bone and lung followed by dr Patel on Arimidex daily Code(s): C50.919 - MALIGNANT NEOPLASM OF UNSP SITE OF UNSPECIFIED FEMALE BREAST (4) HTN (hypertension) Code(s): I10 - ESSENTIAL (PRIMARY) HYPERTENSION (5) Inability to ambulate due to hip Assessment/Plan: recent hospitalization RT for pain management -- has been successful currently at [facility] for ADL and ambulation Code(s): R26.2 - DIFFICULTY IN WALKING, NOT ELSEWHERE CLASSIFIED (6) Metastatic breast cancer Code(s): C50.919 - MALIGNANT NEOPLASM OF UNSP SITE OF UNSPECIFIED FEMALE BREAST C79.9 - SECONDARY MALIGNANT NEOPLASM OF UNSPECIFIED SITE (7) Polio Code(s): A80.9 - ACUTE POLIOMYELITIS, UNSPECIFIED (8) Pulmonary embolism on long-term anticoagulation therapy Code(s): I26.99 - OTHER PULMONARY EMBOLISM WITHOUT ACUTE COR PULMONALE Z79.01 - JAIL (CURRENT) USE OF ANTICOAGULANTS
[2017-01-14] MEDS ORDERED: HEPARIN NA (PORCINE) 5,000 UNITS/ML 1ML VIAL SQ SCH (10:00)
--- NOTE | 2017-01-14 10:28 | PN ---
Progress Note, Physician Chief Complaint: ID Full note dictated Describes 101.5 chills at [facility] but here no fever Was on Bactrim - Current Medication List Current Medications: Active Medications Acetaminophen (Tylenol -) 650 mg PO Q6H PRN PRN Reason: FEVER OR PAIN Last Admin: 01/14/17 04:05 Dose: 650 mg Anastrozole (Arimidex -) 1 mg PO DAILY [facility] Diphenhydramine HCl (Benadryl -) 50 mg PO Q4H PRN PRN Reason: itching Enoxaparin Sodium (Lovenox -) 90 mg SQ BID [facility] Last Admin: 01/14/17 00:20 Dose: 90 mg Ondansetron HCl (Zofran Injection) 4 mg IVPB Q6H PRN PRN Reason: NAUSEA AND/OR VOMITING Ranitidine HCl (Zantac -) 150 mg PO BID [facility] - Objective Vital Signs: Vital Signs Temperature 98.6 F 01/14/17 09:15 Pulse Rate 74 01/14/17 09:15 Respiratory Rate 20 01/14/17 09:15 Blood Pressure 101/50 01/14/17 09:15 O2 Sat by Pulse Oximetry (%) 96 01/14/17 04:30 Constitutional: Yes: Obese Neck: Yes: WNL, Supple Cardiovascular: Yes: Regular Rate and Rhythm, S1, S2 Respiratory: Yes: WNL, Regular, CTA Bilaterally Gastrointestinal: Yes: Soft Edema: No Integumentary: Yes: Other (INdruated sore right buttock tender to touch not fluctuant no celllitis) Labs: CBC, BMP 01/14/17 06:00 01/14/17 06:00 INR, PTT INR 1.36 (0.82-1.09) H 01/13/17 15:55 Problem List - Problems (1) Fever Code(s): R50.9 - FEVER, UNSPECIFIED (2) Breast cancer Code(s): C50.919 - MALIGNANT NEOPLASM OF UNSP SITE OF UNSPECIFIED FEMALE BREAST Assessment/Plan Microbiology Selected Entries 01/14/17 09:15 Temperature 98.6 F Laboratory Tests 01/13/17 01/14/17 01/14/17 16:30 06:00 06:00 WBC 5.2 Hgb 11.9 Plt Count 106 L BUN 6 L D Creatinine 0.4 L Urine RBC 1 Urine WBC 1 Assessment Fever no clear source ? Bactrim reaction Indurated are right buttock not grossly infected but tender no cellulitis Plan Observe off all antibiotics Dr Degroot to see for wound care decubitus Discussed Dr Deep Medina MD
--- NOTE | 2017-01-14 11:23 | CONS ---
INFECTIOUS DISEASE CONSULTATION DATE OF CONSULTATION: DATE OF DICTATION: 01/14/2017 This is a 76-year-old female with known metastatic breast cancer, who I am asked to see for evaluation of fever. The patient is followed by Oncology, Dr. Guzman, and she is known to have extensive metastasis to lung, bone, and liver. She had a recent hospitalization for a pelvic fracture and apparently was transferred to the [facility] where she has been residing. According to the note, she has been treated recently for a urinary tract infection with Bactrim which she was on up until yesterday. She states she has been noting chills for several days, and yesterday, when her temperature was taken, it was found to be 101.5. She has a history of allergies to MULTIPLE ANTIBIOTICS. When she arrived here, she had no fever. Blood cultures were obtained which are today no growth, and a urine culture is pending. She denies any cough, shortness of breath, urinary complaints, abdominal pain, and notes diarrhea but this only since taking oral contrast for an abdominal CT scan. 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 MEDICATIONS: Arimidex. PRIOR SURGERIES: Appendectomy, cholecystectomy, bilateral mastectomy. SOCIAL HISTORY: Never smoked. Not . Lives with her sister. Currently in a snf. No alcohol use. HIV status unknown. FAMILY HISTORY: Reviewed, noncontributory. REVIEW OF SYSTEMS: Respiratory: No cough, shortness of breath. Cardiac: No chest pain, palpitations, syncope. Gastrointestinal: No abdominal pain, vomiting, blood per rectum, hematemesis. Genitourinary: No dysuria, hematuria, urinary frequency. PHYSICAL EXAMINATION: General: She was a heavy-set woman weighing 217 pounds. Alert, oriented, nontoxic appearing, and in no acute distress. Vital Signs: The temperature maximum was 99.5, currently 98.6; pulse 74; blood pressure 100/50; respirations 20. Neck: Supple without adenopathy. Lungs: Clear to percussion, with a few rales noted at the left base. Heart: S1, S2, without audible murmur. Abdomen: Soft, nontender, without hepatosplenomegaly. Extremities: Without clubbing, cyanosis, or edema. Skin: Induration in the area of the right buttock with a crusted sore which was tender to touch. No surrounding erythema was noted and no fluctuance palpated. A perineal rash bilaterally in the perianal area noted. LABORATORY DATA: The white count was 5.2, hemoglobin 11.9, platelets of 106. INR 1.36. BUN 6, creatinine 0.4. Liver enzymes within normal limit. Urinalysis benign. Two sets of blood cultures: No growth. Urine culture pending. Chest x-ray shows some pleural changes in the left lung. ASSESSMENT: A 76-year-old female with bilateral mastectomies, metastatic cancer to liver, bone, and lung, status post recent radiation therapy, presents now with onset of fever while taking Bactrim for a reported urinary tract infection in the snf. Currently, no obvious source of infection. She has multiple allergies noted including to CEPHALOSPORINS, FLUOROQUINOLONES, PENICILLINS, and CODEINE, VANCOMYCIN, PIPERACILLIN, CLINDAMYCIN. At this point, no clear-cut source of infection and she does not appear toxic and has no sepsis criteria. Her blood cultures to date: No growth. The possibility of fever related to Bactrim reaction is considered. She is currently off Bactrim. Additionally, she has a tender sore area in the right buttock which is a potential source of infection, although does not appear to be fluctuant nor have cellulitis associated with it. We will get Dr. Degroot to see her and as discussed with Dr. Adame, observe her off of all antibiotics at the current time pending final blood and urine cultures. In the event that she should need antibiotics, could empirically give her linezolid or daptomycin along with aztreonam for empiric gram-negative coverage. NINFA MCDOANLD M.D. [id number]
[2017-01-14] MEDS ORDERED: PT OWN MED DRAWER 7, Y5N ONE (11:34)
--- NOTE | 2017-01-14 11:59 | PN ---
Progress Note (short form) - Note Progress Note: Vascular Surgery- Dr. Dergoot Patient seen and examined for tender sore area right buttock. 76 yo F with hx of breast cancer with metastases to the bone and lung. Patient states she completed radiation to her hip 3 weeks ago. She was brought to the ED with fever and chills. She states she has been having a lot of soft stool since completing radiation and this has irritated her buttocks. She recently had a CT scan with contrast and is also having loose stool following this. The patient has been having Zinc oxide cream applied and this is helping. PMH: AFIB, recurrent left malignant effusion s/p VATS, Diverticulosis, GERD, Cancer (on Arimidex), Depression, post-polio PSH: Appendectomy, Cholecystectomy, Mastectomy (bilateral) Last Vital Signs Temp Pulse Resp BP Pulse Ox 98.6 F 74 20 101/50 96 01/14/17 09:15 01/14/17 09:15 01/14/17 09:15 01/14/17 09:15 01/14/17 04:30 CBC, BMP 01/14/17 06:00 01/14/17 06:00 Exam: Gen: NAD Buttocks: Right buttocks with area of skin rawness with some tenderness with palp, without erythema, drainage, odor, or area of fluctuance A/P Right buttock skin irritation s/p multiple episodes of soft stool- Afebrile, WBC WNL Continue Zinc oxide Optifoam dressing Offloading
[2017-01-14] MEDS: RANITIDINE HCL 150 MG TABLET (FP) PO SCH ×2 (12:11→21:59)
--- NOTE | 2017-01-14 12:28 | EKG ---
Test Reason : Blood Pressure : / mmHG Vent. Rate : 073 BPM Atrial Rate : 073 BPM P-R Int : 154 ms QRS Dur : 098 ms QT Int : 364 ms P-R-T Axes : 029 022 -03 degrees QTc Int : 401 ms POOR DATA QUALITY, INTERPRETATION MAY BE ADVERSELY AFFECTED NORMAL SINUS RHYTHM NORMAL ECG WHEN COMPARED WITH ECG OF 25-NOV-2016 08:54, NO SIGNIFICANT CHANGE WAS FOUND Confirmed by CUONG TEE, JUAN ([id number]) on 01/14/2017 12:28:15 PM Referred By: Confirmed By:JUAN HUTCHINS MD
[2017-01-14] MEDS: ANASTROZOLE 1 MG TABLET PO SCH (18:42)
--- NOTE | 2017-01-15 08:24 | PN ---
Progress Note, Physician Chief Complaint: ID Afebrile off all antibiotics Seen by wound care appreciated - Current Medication List Current Medications: Active Medications Acetaminophen (Tylenol -) 650 mg PO Q6H PRN PRN Reason: FEVER OR PAIN Last Admin: 01/14/17 04:05 Dose: 650 mg Anastrozole (Arimidex -) 1 mg PO DAILY [facility] Last Admin: 01/14/17 18:42 Dose: 1 mg Diphenhydramine HCl (Benadryl -) 50 mg PO Q4H PRN PRN Reason: itching Enoxaparin Sodium (Lovenox -) 90 mg SQ BID [facility] Last Admin: 01/14/17 21:59 Dose: 90 mg Ondansetron HCl (Zofran Injection) 4 mg IVPB Q6H PRN PRN Reason: NAUSEA AND/OR VOMITING Ranitidine HCl (Zantac -) 150 mg PO BID [facility] Last Admin: 01/14/17 21:59 Dose: 150 mg - Objective Vital Signs: Vital Signs Temperature 98.7 F 01/15/17 06:00 Pulse Rate 69 01/15/17 06:00 Respiratory Rate 20 01/15/17 06:00 Blood Pressure 110/47 01/15/17 06:00 O2 Sat by Pulse Oximetry (%) 100 01/14/17 21:00 Constitutional: Yes: No Distress Neck: Yes: WNL, Supple Cardiovascular: Yes: Regular Rate and Rhythm, S1, S2. No: Murmur Respiratory: Yes: WNL, Regular, CTA Bilaterally Gastrointestinal: Yes: WNL, Normal Bowel Sounds, Soft. No: Tenderness, Tenderness, Epigastrium Edema: No Labs: CBC, BMP 01/14/17 06:00 01/14/17 06:00 INR, PTT INR 1.36 (0.82-1.09) H 01/13/17 15:55 Problem List - Problems (1) Fever Code(s): R50.9 - FEVER, UNSPECIFIED (2) Breast cancer Code(s): C50.919 - MALIGNANT NEOPLASM OF UNSP SITE OF UNSPECIFIED FEMALE BREAST Assessment/Plan Microbiology 01/13/17 15:55 Blood - Peripheral Venous Blood Culture - Preliminary NO GROWTH OBTAINED AFTER 24 HOURS, INCUBATION TO CONTINUE FOR 4 DAYS. 01/13/17 15:55 Blood - Peripheral Venous Blood Culture - Preliminary NO GROWTH OBTAINED AFTER 24 HOURS, INCUBATION TO CONTINUE FOR 4 DAYS. Laboratory Tests 01/13/17 01/14/17 01/14/17 15:55 06:00 06:00 WBC 5.2 Hgb 11.9 Hct 35.3 Plt Count 131 L 106 L BUN 6 L D Creatinine 0.4 L To date no fever ad negative blood cultures/ Metatstatic CA Discharge planning as per Dr Adame
--- NOTE | 2017-01-15 10:08 | PN ---
Progress Note (short form) - Note Progress Note: patient seen and examioned at bedside today with C/o pleuritic type chest pain on left scapular area skin intact remains afebrile all c/s negative to date appreciate ID follow up and wound care consult Vital Signs Period Temp Pulse Resp BP Sys/Saul Pulse Ox Last 24 Hr 98.2 F-99.2 F 69-80 20-20 103-122/46-50 100 neck supple heart regular lung grossly clear no wheezing /rales /rhonchi abd soft obese ext no calf tenderness CBC, BMP 01/14/17 06:00 01/14/17 06:00 Microbiology 01/13/17 15:55 Blood - Peripheral Venous Blood Culture - Preliminary NO GROWTH OBTAINED AFTER 24 HOURS, INCUBATION TO CONTINUE FOR 4 DAYS. 01/13/17 15:55 Blood - Peripheral Venous Blood Culture - Preliminary NO GROWTH OBTAINED AFTER 24 HOURS, INCUBATION TO CONTINUE FOR 4 DAYS. Active Medications Acetaminophen (Tylenol -) 650 mg PO Q6H PRN PRN Reason: FEVER OR PAIN Last Admin: 01/14/17 04:05 Dose: 650 mg Anastrozole (Arimidex -) 1 mg PO DAILY [facility] Last Admin: 01/14/17 18:42 Dose: 1 mg Diphenhydramine HCl (Benadryl -) 50 mg PO Q4H PRN PRN Reason: itching Enoxaparin Sodium (Lovenox -) 90 mg SQ BID [facility] Last Admin: 01/14/17 21:59 Dose: 90 mg Ondansetron HCl (Zofran Injection) 4 mg IVPB Q6H PRN PRN Reason: NAUSEA AND/OR VOMITING Ranitidine HCl (Zantac -) 150 mg PO BID [facility] Last Admin: 01/14/17 21:59 Dose: 150 mg Problem List - Problems (1) Pleural adhesion Assessment/Plan: pain only with deep inspiration clinically unchanged no improvement with tylenol allergic to NSAIDS / multiple pain meds Hx of metastatic breast ca > CT OF CHEST TODAY IF negative will treat with tylenol scheduled dosing and OK to d/c Code(s): R09.1 - PLEURISY (2) Fever Assessment/Plan: fever post completed abx for + UTI @STR s/p RT / immune compromised / metastatic breast Ca plan c/s all negative to date skin inspected - no site of infection appreciate ID followup and wound care for brandyn-rectal area evaluation has remain afebrile and c/s negative will arrange for return to [facility] Code(s): R50.9 - FEVER, UNSPECIFIED (3) Abdominal pain Assessment/Plan: CT abdomen done / compared to previous Currently with Diarrhea -- probably due to contrast Gi consult requested feeling better perirectal area remains raw but no infection Code(s): R10.9 - UNSPECIFIED ABDOMINAL PAIN (4) Breast cancer Assessment/Plan: s/p double mastectomy metastatic to bone and lung followed by dr Patel on Arimidex daily Code(s): C50.919 - MALIGNANT NEOPLASM OF UNSP SITE OF UNSPECIFIED FEMALE BREAST (5) HTN (hypertension) Code(s): I10 - ESSENTIAL (PRIMARY) HYPERTENSION (6) Inability to ambulate due to hip Assessment/Plan: recent hospitalization RT for pain management -- has been successful currently at [facility] for ADL and ambulation Code(s): R26.2 - DIFFICULTY IN WALKING, NOT ELSEWHERE CLASSIFIED (7) Metastatic breast cancer Code(s): C50.919 - MALIGNANT NEOPLASM OF UNSP SITE OF UNSPECIFIED FEMALE BREAST C79.9 - SECONDARY MALIGNANT NEOPLASM OF UNSPECIFIED SITE (8) Polio Code(s): A80.9 - ACUTE POLIOMYELITIS, UNSPECIFIED (9) Pulmonary embolism on long-term anticoagulation therapy Code(s): I26.99 - OTHER PULMONARY EMBOLISM WITHOUT ACUTE COR PULMONALE 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
[2017-01-15] MEDS ORDERED: ACETAMINOPHEN 500 MG TABLET (FP) PO ONE (10:16)
[2017-01-15] MEDS ORDERED: PT OWN MED DRAWER 7, Y5N ONE (10:38)
[2017-01-15] MEDS: RANITIDINE HCL 150 MG TABLET (FP) PO SCH ×2 (11:09→22:04)
[2017-01-15] MEDS: ANASTROZOLE 1 MG TABLET PO SCH (11:09)
[2017-01-15] MEDS: ENOXAPARIN NA (PORCINE) 100 MG/1 ML DISP.SYRIN SQ SCH ×2 (11:13→22:03)
--- NOTE | 2017-01-15 11:51 | PN ---
Progress Note (short form) - Note Progress Note: Radiation Oncology Followup 76 yo woman with progression of metastatic breast cancer on Arimidex with symptomatic right pelvic/hip disease associated with pelvic pathologic fracture. She completed 30Gy palliative RT to right pelvis/hip 3 weeks ago and did well without acute toxicity. Was starting to ambulate and was tolerating weight bearing with less pain. Now admitted for workup post febrile episode on abx for UTI. She states that she's had loose non watery BMs worsened after recent oral contrast. Denies abdominal pain and dysuria has resolved. Now off abx per ID. Able to stand, ambulate with assistance/walker. On exam, afebrile. No hip or pelvic mass or tenderness. Abdomen is nontender. Erythema and focal dry desquamation in area of exit radiation in medial right buttock. No warmth though area is tender. Impression: Metastatic breast cancer with good response to palliative RT completed 3 wks ago. For RT-associated dermatitis in buttocks, would advise silvadene and pressure dressing to minimize irritation. Encourage ambulation as tolerated. Keep pressure off the right buttock. She should follow up with her medical oncologist when feasible for restaging and further endocrine therapy management.
--- NOTE | 2017-01-15 14:36 | CON.GI ---
Consult Consult Specialty:: GI Referred by:: Dr Adame Reason for Consultation:: Abdominal pain - History of Present Illness Chief Complaint: LLQ pain History of Present Illness: 76 F with h/o metastatic breast CA to0 lung and bone, recent pelvic fx, admitted with fever and LLQ pain. CT shows extensive diverticulosis but no diverticulitis. - Past Medical History Cardio/Vascular: Yes: AFIB, Deep Vein Thrombosis Pulmonary: Yes: Other (recurrent left malignant effusion s/p VATS) Gastrointestinal: Yes: Diverticulosis, GERD. 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,cholecystectomy appendectomy - Past Surgical History Past Surgical History: Yes: Appendectomy, Cholecystectomy, Mastectomy (bilateral ) - Alcohol/Substance Use Hx Alcohol Use: No History of Substance Use: reports: None - Smoking History Smoking history: Never smoked Have you smoked in the past 12 months: No - Social History ADL: Independent History of Recent Travel: No Home Medications - Allergies Allergies/Adverse Reactions: Allergies Allergy/AdvReac Type Severity Reaction Status Date / Time codeine [Codeine] Allergy Severe DIZZINESS Verified 01/13/17 14:32 epinephrine Allergy Severe PALPITATION Verified 01/13/17 14:32 meperidine HCl [From Demerol] Allergy Severe Nausea Verified 01/13/17 14:32 morphine Allergy Severe WEAKNESS Verified 01/13/17 14:32 oxycodone HCl [From Percocet] Allergy Severe Nausea Verified 01/13/17 14:32 cephalexin [Cephalexin] Allergy Intermediate Hives Verified 01/13/17 14:32 diazepam [From Valium] Allergy Intermediate Hives Verified 01/13/17 14:32 ketorolac tromethamine Allergy Intermediate Hives Verified 01/13/17 14:32 [From Toradol] prochlorperazine edisylate Allergy Intermediate Hives Verified 05/07/16 07:36 [From Compazine] prochlorperazine maleate Allergy Intermediate Hives Verified 01/13/17 14:32 [From Compazine] ampicillin Allergy SEVERE RASH Verified 01/13/17 14:32 celery Allergy Verified 01/13/17 14:32 ciprofloxacin [From Cipro] Allergy SEVERE RASH Verified 01/13/17 14:32 ciprofloxacin HCl Allergy SEVERE RASH Verified 01/13/17 14:32 [From Cipro] clindamycin Allergy SEVERE RASH Verified 01/13/17 14:32 fentanyl Allergy Vomiting Verified 01/13/17 14:32 pineapple Allergy THROAT Verified 01/13/17 14:32 SWELLING piperacillin Allergy SEVERE RASH Verified 01/13/17 14:32 vancomycin Allergy SEVERE RASH Verified 01/13/17 14:32 - Home Medications Home Medications: Ambulatory Orders Ranitidine [Zantac -] 150 mg PO BID 06/24/12 Acetaminophen [Tylenol] 650 mg PO PRN 08/15/15 Diphenhydramine [Benadryl Capsule -] 50 mg PO Q6H PRN #120 capsule 08/26/15 Enoxaparin [Lovenox -] 90 mg SQ BID disp.syrin 08/26/15 Anastrozole [Arimidex -] 1 mg PO DAILY 05/06/16 Cholecalciferol (Vitamin D3) [Vitamin D3] 4,000 unit PO DAILY 05/06/16 Bismuth Subsalicylate [Kaopectate] 262 mg PO PRN PRN 01/13/17 Fluticasone Prop 0.05% Nasal [Flonase -] 1 - 2 spray NS DAILY 01/13/17 Hydrocortisone 1% Cream [Hytone 1% Cream -] 1 applic TP PRN 01/13/17 Nystatin 100,000 unit MC BID 01/13/17 Talc/Cellulos/Chloroxy/Aldioxa [Zeasorb Powder] 0 gm TP BID 01/13/17 Family Disease History - Family Disease History Family Disease History: CA: Brother (Bladder), Other: Father (bleeding ulcer), Mother (CHF) Physical Exam-GI Vital Signs: Vital Signs Temperature 98.2 F 01/15/17 13:43 Pulse Rate 76 01/15/17 13:43 Respiratory Rate 20 01/15/17 13:43 Blood Pressure 104/56 01/15/17 13:43 O2 Sat by Pulse Oximetry (%) 94 L 01/15/17 09:00 Constitutional: Yes: Well Nourished, Anxious HENT: Yes: Normocephalic Neck: Yes: Supple Cardiovascular: Yes: Regular Rate and Rhythm Respiratory: Yes: CTA Bilaterally Gastrointestinal Inspection: Yes: WNL ...Auscultate: Yes: Normoactive Bowel Sounds ...Palpate: Yes: Soft, Tenderness (LLQ with no rebound) Labs: CBC, BMP 01/14/17 06:00 01/14/17 06:00 INR, PTT INR 1.36 (0.82-1.09) H 01/13/17 15:55 Imaging - Results Cat Scan: Report Reviewed (No diverticulitis as noted above) Assessment/Plan Likely subclinical diverticulitis. Severe diverticular disease with anatomic distortion can mask an occult infectious process. Would continue AbRX for now and change to high fiber diet. Would change to levaquid nad ashish as ahe tolerated bactrim poorly.
[2017-01-15] MEDS: ACETAMINOPHEN 325 MG TABLET (FP) PO PRN (22:05)
[2017-01-16] MEDS: ENOXAPARIN NA (PORCINE) 100 MG/1 ML DISP.SYRIN SQ SCH (09:40)
[2017-01-16] MEDS: ANASTROZOLE 1 MG TABLET PO SCH (09:41)
[2017-01-16] MEDS: RANITIDINE HCL 150 MG TABLET (FP) PO SCH (09:41)
--- NOTE | 2017-01-16 12:16 | DS ---
Physical Examination Vital Signs: Vital Signs Temperature 98.5 F 01/16/17 06:00 Pulse Rate 75 01/16/17 06:00 Respiratory Rate 20 01/16/17 06:00 Blood Pressure 141/68 01/16/17 06:00 O2 Sat by Pulse Oximetry (%) 95 01/15/17 21:00 Findings/Remarks: patient sitting in chair / c/o no BM yesterday and today -- however has had diarrhea for several days prior has remained afebrile she has participated in PT able to ambulate without pain clinically stable and improved Constitutional: Yes: Well Nourished, No Distress, Anxious, Obese Eyes: Yes: WNL, Conjunctiva Clear, EOM Intact HENT: Yes: WNL, Atraumatic, Normocephalic Neck: Yes: WNL, Supple, Trachea Midline Cardiovascular: Yes: WNL, Regular Rate and Rhythm Respiratory: Yes: WNL, Regular, CTA Bilaterally Gastrointestinal: Yes: Normal Bowel Sounds, Soft, Abdomen, Obese. No: Tenderness, Tenderness, Rebound Renal/: Yes: WNL Breast(s): Yes: Other (bilateral mastectomy) Musculoskeletal: Yes: Back Pain, Muscle Pain Extremities: No: Calf Tenderness, Cyanosis, Deformity Edema: LLE: Trace, RLE: Trace Peripheral Pulses WNL: Yes Integumentary: Yes: WNL Neurological: Yes: Alert, Oriented, Unsteady Gait, Weakness Psychiatric: Yes: Other (depressed) Labs: CBC, BMP 01/14/17 06:00 01/14/17 06:00 Discharge Summary Reason For Visit: FEVER/ABDOMINAL PAIN, DIARRHEA Current Active Problems Abdominal pain (Acute) Acute pulmonary embolism (Acute) Anxiety and depression (Acute) Diarrhea (Acute) Fever (Acute) Hypoxemia (Acute) Paroxysmal a-fib (Acute) Pleural adhesion (Acute) Pleural effusion (Acute) Pulmonary emboli (Acute) Pulmonary embolism with acute cor pulmonale (Acute) Shortness of breath (Acute) Hospital Course: 76-year-old female with history of breast CA, with metastases to the bone and lung.recent hospitalization for fx pelvis currently in STR. She was transferred to ER due to fever and chills, also c/o left lower quadrant pain - - but not persistent . She just completed full treatment with Bactrim for UTI. Patient is followed by Dr Guzman for oncology and just completed RT ( to pelvic area) 2 weeks ago. - Patient was cultured at time af admission -- with additional orders for c/s for temperatue spike --- she remained afebrile and admission c/s negative for growth. ID consult was requested and appreciated -- no indications for abx at this time. She was also seen by RT physician - with recommendations for silvadene to rectal area, as he feel due to RT treatment. I will order silvadene for treatment at [facility]. Patient to be d/c today to return to [facility] for continuation of therapy. Will also arrange for continuation of oncology tx as out patient - Instructions Referrals: Sonya Adame MD [Primary Care Provider] - - Home Medications Comprehensive Discharge Medication List: Ambulatory Orders Ranitidine [Zantac -] 150 mg PO BID 06/24/12 Acetaminophen [Tylenol] 650 mg PO PRN 08/15/15 Diphenhydramine [Benadryl Capsule -] 50 mg PO Q6H PRN #120 capsule 08/26/15 Enoxaparin [Lovenox -] 90 mg SQ BID disp.syrin 08/26/15 Anastrozole [Arimidex -] 1 mg PO DAILY 05/06/16 Cholecalciferol (Vitamin D3) [Vitamin D3] 4,000 unit PO DAILY 05/06/16 Fluticasone Prop 0.05% Nasal [Flonase -] 1 - 2 spray NS DAILY 01/13/17 Nystatin 100,000 unit MC BID 01/13/17 Talc/Cellulos/Chloroxy/Aldioxa [Zeasorb Powder] 0 gm TP BID 01/13/17 Acetaminophen [Tylenol .Regular Strength -] 650 mg PO Q6H PRN #0 tablet Anastrozole [Arimidex -] 1 mg PO DAILY tablet 01/16/17 Ranitidine [Zantac -] 150 mg PO BID tablet 01/16/17
[2017-01-16 15:00] VITALS: BP 122/59; PULSE 76; TEMP 98.6
[2017-01-16] MEDS ORDERED: SILVER SULFADIAZINE 1% TOP CREAM 50 GM JAR TP SCH (22:00)
== END 2017-01-16 15:49 | DRG 392 ==
LOC: JER 13:46 → JERBED 17:39 → J7W 01-14 03:42
PROVIDERS: ADMIT Family Medicine; ATTEND Family Medicine
DX: K57.90 Diverticulosis of intestine, part unspecified, without perforation or abscess without bleeding (principal); C78.00 Secondary malignant neoplasm of unspecified lung; C79.51 Secondary malignant neoplasm of bone; C50.919 Malignant neoplasm of unspecified site of unspecified female breast; F32.9 Major depressive disorder, single episode, unspecified; F41.9 Anxiety disorder, unspecified; Z86.711 Personal history of pulmonary embolism
CPT/HCPCS: 36415; 71010-TC; 71250-TC; 74176-TC; 80048; 80053; 81003; 81015; 82550; 82803; 83605; 84484; 85025; 85610; 85730; 86850; 86900; 86901; 87040; 87086; 93005; 93010; 97116-GP; 97161-GP; 99285-25; Q9967

== ENCOUNTER 2018-03-02 11:52 | Observation (INO) | payer OTHER ==
--- NOTE | 2018-03-02 12:45 | PDOC ---
History of Present Illness <Meg Mcgee - Last Filed: 03/02/18 18:16> - General History Source: Patient Exam Limitations: No Limitations - History of Present Illness Initial Comments: This is a 78 YOF with h/o breast CA with mets to bone and lung s/p bilateral mastectomy (on Xeloda, generic: capecitabine), chronic pain on Tylenola nd gabapentin, left malignant pleural effusion s/p VATS, A-Fib, DVT/PE on Lovenox, HTN on amlodipine, appendectomy, cholecystectomy, hip fracture, polio with chronic LE deficit, and depression, who p/w left flank and LLQ pain for the past ~24 hours, nausea, non-black non-bloody diarrhea, chest pressure, mild SOB , generalized weakness, and generalized malaise for the past 2 days. She notes that the pain is constant, 10/10, worse when she moves or repositions. She has many other symptoms today but none of which are new. She follows with Dr. Guzman for her metastatic breast cancer and has been taking the same medication regimen chronically. She has many medical allergies and states she cannot take any pain relievers other than Tylenol. 03/02/18 13:52 Her allergy list is handed to me by the patient's institute scientist and the patient: Codeine Epinephrine Meperidine Morphine Oxycodone Cephalexin Diazepam Ketorolac Prochlorperazine Ampicillin Ciprofloxacin Clindamycin Fentanyl Pipercillin Vancomycin Sulfa Bactrim Fentanyl <Virginia Feng - Last Filed: 03/02/18 21:07> - General Chief Complaint: Pain Stated Complaint: BACK PAIN Time Seen by Provider: 03/02/18 12:40 Past History <Meg Mcgee - Last Filed: 03/02/18 18:16> - Past Medical History Anemia: No Asthma: No Cancer: Yes (BILAT BREAST;LUNG LEFT , bone) Cardiac Disorders: Yes (PALPITATIONS) CVA: No COPD: No CHF: No Dementia: No Diabetes: No GI Disorders: Yes (REFLUX) Disorders: Yes (UTI'S, STRESS INCONTINENCE) HTN: No Hypercholesterolemia: No Liver Disease: Yes (cyst) Seizures: No Thyroid Disease: No - Surgical History Abdominal Surgery: Yes Appendectomy: Yes (age 18) Cardiac Surgery: No Cholecystectomy: Yes (1997) Lung Surgery: Yes (pleurodesis) Neurologic Surgery: No Orthopedic Surgery: No - Immunization History Immunization Up to Date: Yes - Suicide/Smoking/Psychosocial Hx Smoking History: Unknown if ever smoked Have you smoked in the past 12 months: No Hx Alcohol Use: No Drug/Substance Use Hx: No Substance Use Type: None Hx Substance Use Treatment: No <Virginia Feng - Last Filed: 03/02/18 21:07> - Past Medical History Allergies/Adverse Reactions: Allergies Allergy/AdvReac Type Severity Reaction Status Date / Time codeine [Codeine] Allergy Severe DIZZINESS Verified 01/13/17 14:32 epinephrine Allergy Severe PALPITATION Verified 01/13/17 14:32 meperidine HCl [From Demerol] Allergy Severe Nausea Verified 01/13/17 14:32 morphine Allergy Severe WEAKNESS Verified 01/13/17 14:32 oxycodone HCl [From Percocet] Allergy Severe Nausea Verified 01/13/17 14:32 cephalexin [Cephalexin] Allergy Intermediate Hives Verified 01/13/17 14:32 diazepam [From Valium] Allergy Intermediate Hives Verified 01/13/17 14:32 ketorolac tromethamine Allergy Intermediate Hives Verified 01/13/17 14:32 [From Toradol] prochlorperazine edisylate Allergy Intermediate Hives Verified 05/07/16 07:36 [From Compazine] prochlorperazine maleate Allergy Intermediate Hives Verified 01/13/17 14:32 [From Compazine] ampicillin Allergy SEVERE RASH Verified 01/13/17 14:32 celery Allergy Verified 01/13/17 14:32 ciprofloxacin [From Cipro] Allergy SEVERE RASH Verified 01/13/17 14:32 ciprofloxacin HCl Allergy SEVERE RASH Verified 01/13/17 14:32 [From Cipro] clindamycin Allergy SEVERE RASH Verified 01/13/17 14:32 fentanyl Allergy Vomiting Verified 01/13/17 14:32 pineapple Allergy THROAT Verified 01/13/17 14:32 SWELLING piperacillin Allergy SEVERE RASH Verified 01/13/17 14:32 sulfur [From Sulfur-8] Allergy Verified 03/02/18 12:32 vancomycin Allergy SEVERE RASH Verified 01/13/17 14:32 Home Medications: Ambulatory Orders Ranitidine [Zantac -] 150 mg PO BID 06/24/12 Acetaminophen [Tylenol] 650 mg PO PRN 08/15/15 Diphenhydramine [Benadryl Capsule -] 50 mg PO Q6H PRN #120 capsule 08/26/15 Enoxaparin [Lovenox -] 90 mg SQ BID disp.syrin 08/26/15 Anastrozole [Arimidex -] 1 mg PO DAILY 05/06/16 Cholecalciferol (Vitamin D3) [Vitamin D3] 4,000 unit PO DAILY 05/06/16 Fluticasone Prop 0.05% Nasal [Flonase -] 1 - 2 spray NS DAILY 01/13/17 Nystatin 100,000 unit MC BID 01/13/17 Talc/Cellulos/Chloroxy/Aldioxa [Zeasorb Powder] 0 gm TP BID 01/13/17 Silver Sulfadiazine 1% Top Cr [Silvadene -] 1 applic TP BID #1 jar 01/16/17 Capecitabine [Xeloda] 1,000 mg PO DAILY 03/02/18 Capecitabine [Xeloda] 500 mg PO HS 03/02/18 Gabapentin 600 mg PO DAILY 03/02/18 Review of Systems - Review of Systems Able to Perform ROS?: Yes Constitutional: Yes: Malaise, Weakness. No: Chills, Fever, Unexplained wgt Loss HEENTM: No: Nose Congestion, Throat Pain Respiratory: Yes: Shortness of Breath. No: Cough Cardiac (ROS): Yes: Chest Pain, Lightheadedness. No: Palpitations ABD/GI: Yes: Diarrhea, Nausea, Other (left abdominal pain). No: Constipated, Vomiting : No: Burning, Dysuria Musculoskeletal: Yes: Back Pain (left lower). No: Neck Pain Integumentary: No: Bruising, Rash Neurological: No: Headache, Numbness, Tingling, Weakness Endocrine: No: Unexplained Weight Gain, Unexplained Weight Loss <Virginia Feng - Last Filed: 03/02/18 21:07> *Physical Exam - Vital Signs Last Vital Signs Temp Pulse Resp BP Pulse Ox 98.8 F 75 22 143/60 99 03/02/18 12:34 03/02/18 12:34 03/02/18 12:34 03/02/18 12:34 03/02/18 12:34 <Meg Mcgee - Last Filed: 03/02/18 18:16> - Vital Signs Last Vital Signs Temp Pulse Resp BP Pulse Ox 98.8 F 75 22 143/60 99 03/02/18 12:34 03/02/18 12:34 03/02/18 12:34 03/02/18 12:34 03/02/18 12:34 - Physical Exam General Appearance: Yes: Nourished, Obese, Other (uncomfortable appearing, occasionally tearful, answering questions appropriately, accompanied by institute scientist at bedside) HEENT: positive: EOMI, Normal Voice, Hearing Grossly Normal. negative: Scleral Icterus (R), Scleral Icterus (L), Nasal Congestion Neck: positive: Trachea midline, Supple. negative: Tender, Rigid Respiratory/Chest: positive: Lungs Clear, Normal Breath Sounds. negative: Respiratory Distress, Crackles, Rhonchi, Stridor, Wheezing Cardiovascular: positive: Regular Rhythm, Regular Rate, Other (occasional ectopy ). negative: Murmur Gastrointestinal/Abdominal: positive: Normal Bowel Sounds, Tender (moderate LLQ and suprapubic ttp and mild epigastric and LUQ ttp), Soft. negative: Organomegaly, Pulsatile Mass, Guarding Musculoskeletal: positive: Normal Inspection. negative: Decreased Range of Motion, Vertebral Tenderness Extremity: positive: Normal Capillary Refill, Normal Inspection, Normal Range of Motion. negative: Tender, Cyanosis Integumentary: positive: Normal Color, Dry, Warm. negative: Erythema, Rash, Bruising Neurologic: positive: training and development head II-XII NML intact (grossly), Fully Oriented, Alert, Normal Mood/Affect, Normal Response, Motor Strength 5/5. negative: EOM Palsy, Facial Droop, Numbness, Sensory Deficit, Confused, Disoriented <Virginia Feng - Last Filed: 03/02/18 21:07> Heart Score/ECG Review #1 03/02/18 14:27 SR with occasional ectopy and rate of 73, normal axis, normal intervals, isolated TWI in III. <Virginia Feng - Last Filed: 03/02/18 21:07> ED Treatment Course - LABORATORY CBC & Chemistry Diagram: 03/02/18 13:48 03/02/18 13:32 - ADDITIONAL ORDERS Additional order review: Laboratory Results 03/02/18 03/02/18 13:32 13:32 Sodium 146 H Potassium 3.7 Chloride 106 Carbon Dioxide 29 Anion Gap 11 BUN 9 Creatinine 0.3 L Creat Clearance w eGFR > 60 Random Glucose 98 Calcium 9.3 Total Bilirubin 0.3 AST 15 ALT 17 Alkaline Phosphatase 123 H Creatine Kinase 17 L Troponin I < 0.02 B-Natriuretic Peptide 257.52 Total Protein 6.5 Albumin 3.4 Lipase 114 03/02/18 13:48 RBC 4.09 MCV 85.8 MCHC 33.4 RDW 16.3 H MPV 7.3 L D Neutrophils % 79.7 Lymphocytes % 13.4 D Monocytes % 5.8 Eosinophils % 0.7 Basophils % 0.4 - Medications Given in the ED: ED Medications Discontinued Medications Generic Name Dose Route Start Last Admin Trade Name Freq PRN Reason Stop Dose Admin Acetaminophen 975 mg 03/02/18 13:36 03/02/18 14:01 Tylenol - PO 03/02/18 13:37 Not Given ONCE ONE <Meg Mcgee - Last Filed: 03/02/18 18:16> - LABORATORY CBC & Chemistry Diagram: 03/02/18 13:48 03/02/18 13:32 <Virginia Feng - Last Filed: 03/02/18 21:07> Medical Decision Making - Medical Decision Making 03/02/18 18:16 Dr. Jasen Guzman was paged and notified via phone service. <Meg Mcgee - Last Filed: 03/02/18 18:16> - Medical Decision Making 03/02/18 13:48 Adult female Pt p/w left-sided abdominal pain. Initial Vital Signs Temp Pulse Resp BP Pulse Ox 98.8 F 75 22 143/60 99 03/02/18 12:34 03/02/18 12:34 03/02/18 12:34 03/02/18 12:34 03/02/18 12:34 Exam: As noted in Physical Exam section. DDX IBNLT: UTI/pyelonephritis, diverticulitis wwo abscess or perforation, colitis, ovarian torsion, PID, TOA, ovarian cyst, malignancy, hernia, AAA/AD, pancreatitis, appendicitis, gastritis, PUD, ACS, renal colic, SBO, bowel ischemia, bowel perforation, cholecystitis, musculoskeletal, constipation, etc. W/U ordered: CBCD CMP Mg Phos Cardiac panel BNP UA UCx Lactate EKG CXR CT A/P with PO Contrast TX ordered: IVF, PO Tylenol (patient notes many allergies, says the only thing she can have is Tylenol, no Ofirm[facility] at [facility] now). CXR: left basilar pleural changes, skeletal metastatic diseases. Labs: CT: 03/02/18 17:15 Spoke with MARC for Dr. Adame; patient to be admitted under Dr. Adame's service. Decision to Admit order placed to Dr. Adame. Reassessment: Repeat VS: 03/02/18 21:03 Patient remains awaiting bed. She notes pain initially subsided somewhat; now is returning. She is counseled can have repeat dose of Tylenol. She prefers to take her own Tylenol Extra Strength, 2 [id number]. She also is counseled she can take her cancer medication. Ordered is patient's regular Lovenox injection. 03/02/18 21:05 <Virginia Feng - Last Filed: 03/02/18 21:07> *DC/Admit/Observation/Transfer <Meg Mcgee - Last Filed: 03/02/18 18:16> - Discharge Dispostion Decision to Admit order: Yes <Virginia Feng - Last Filed: 03/02/18 21:07> Diagnosis at time of Disposition: Chest pain, Abdominal pain, Metastatic breast cancer - Discharge Dispostion Condition at time of disposition: Guarded
--- NOTE | 2018-03-02 13:27 | PDOC ---
Attending Attestation - HPI HPI: 03/02/18 16:54 The patient is a 78 year old female, with a significant PMH of depression, HTN, DVT/PE on AC, A-Fib, left malignant pleural effusion s/p VATS, breast cancer with metastases to bone and lung, who presents to the emergency department complaining of constant LLQ pain and left flank pain with a severity of 10/10 that began approximately 24 hours. The patient also states for the past two days she has been having non bloody non black diarrhea, chest pressure, nausea, mild SOB, generalized weakness, nausea and generalized malaise. Documentation prepared by Ji Faulkner, acting as medical chemist for Juno Caballero MD. <Ji Faulkner - Last Filed: 03/02/18 16:54> - Resident Resident Name: Virginia Feng - ED Attending Attestation I have performed the following: I have examined & evaluated the patient, The case was reviewed & discussed with the resident, I agree w/resident's findings & plan, Exceptions are as noted - Physicial Exam PE: 03/02/18 17:18 Patient is awake and alert, morbidly obese, in moderate distress; Normocephalic, atraumatic PERRLA, EOMI mm-dry cta rrr Abdomen is soft, non-distended, +left lower quadrant tenderness with voluntary guarding; - Medical Decision Making 03/02/18 17:19 Patient is a 78-year-old female with a static breast CA who presents with atraumatic left lower quadrant pain. Differential diagnoses includes mesenteric ischemia versus diverticulitis versus colitis versus nephrolithiasis versus UTI. Patient has multiple ALLERGIES to numerous pain medications and is requesting Tylenol only. Will hydrate. Will obtain CBC/CMP/UA. Will obtain a CT that and pelvis. Will reassess. <Juno Caballero - Last Filed: 03/02/18 17:20>
[2018-03-02] MEDS ORDERED: ACETAMINOPHEN 500 MG TABLET (FP) PO ONE (13:36)
[2018-03-02 13:56] LABS: BASO % 0.4 % (0-2.0); EOS % 0.7 % (0-4.5); HEMATOCRIT 35.1 % (32.4-45.2); HEMOGLOBIN 11.7 GM/dL (10.7-15.3); LYMPH % 13.4 % (8-40); MCH 28.7 pg (25.7-33.7); MCHC 33.4 g/dl (32.0-36.0); MEAN CELL VOLUME 85.8 fl (80-96); MEAN PLT VOLUME 7.3 fl (7.5-11.1); MONO % 5.8 % (3.8-10.2); NEUT % 79.7 % (42.8-82.8); PLATELET COUNT 159 K/MM3 (134-434); RBC 4.09 M/mm3 (3.60-5.2); RDW 16.3 % (11.6-15.6); WHITE BLOOD COUNT 8.6 K/mm3 (4.0-10.0)
[2018-03-02 14:35] LABS: ALBUMIN 3.4 g/dl (3.4-5.0); ANION GAP 11 (8-16); BILIRUBIN,TOTAL 0.3 mg/dL (0.2-1.0); BLOOD UREA NITROGEN 9 mg/dL (7-18); CALCIUM 9.3 mg/dL (8.5-10.1); CHLORIDE 106 mmol/L (98-107); CO2 29 mmol/L (21-32); CREATININE 0.3 mg/dL (0.55-1.02); GLUCOSE,RANDOM 98 mg/dL (74-106); LIPASE 114 U/L (73-393); POTASSIUM 3.7 mmol/L (3.5-5.1); SGOT/AST 15 U/L (15-37); SGPT/ALT 17 U/L (12-78); SODIUM 146 mmol/L (136-145); TOT PROT 6.5 g/dl (6.4-8.2)
[2018-03-02 14:36] LABS: ALK PHOS 123 U/L (45-117); N-TERMINAL BNP 257.52 pg/ml (5-450)
[2018-03-02] MEDS: DEXTROSE 5%-0.45% SALINE 1,000 ML IV SCH (17:37)
[2018-03-02] MEDS ORDERED: SODIUM CHLORIDE 0.9% 500 ML INFUS.BAG IV ONE (20:52)
[2018-03-02] MEDS ORDERED: ENOXAPARIN NA (PORCINE) 80 MG/0.8 ML DISP.SYRIN SQ ONE ×2 (21:00→21:08)
[2018-03-02] MEDS ORDERED: diphenhydrAMINE HCL 50 MG CAPSULE PO PRN (21:09)
[2018-03-02] MEDS ORDERED: ACETAMINOPHEN 325 MG TABLET (FP) PO PRN (21:15)
[2018-03-02] MEDS ORDERED: FLUTICASONE PROP 0.05% 16 GM NASAL SPRAY NS SCH (21:45)
[2018-03-02] MEDS: CAPECITABINE 500 MG TABLET PO SCH (22:00)
[2018-03-02] MEDS: FLUTICASONE PROP 0.05% 16 GM NASAL SPRAY NS SCH (22:00)
[2018-03-02] MEDS: ENOXAPARIN NA (PORCINE) 100 MG/1 ML DISP.SYRIN SQ SCH (22:00)
[2018-03-02] MEDS: CHOLECALCIFEROL (VITAMIN D3) 1,000 UNIT TABLET (FP) PO SCH (23:00)
[2018-03-02] MEDS: RANITIDINE HCL 150 MG TABLET (FP) PO SCH (23:00)
[2018-03-02 23:39] LABS: URINE APPEARANCE CLEAR; URINE BILIRUBIN NEGATIVE (<2.0 mg/dL); URINE COLOR LTYELLOW; URINE GLUCOSE (UA) NEGATIVE (NEGATIVE); URINE KETONE NEGATIVE (NEGATIVE); URINE NITRITE NEGATIVE (NEGATIVE); URINE PROTEIN NEGATIVE (NEGATIVE); URINE UROBILINOGEN NEGATIVE mg/dL (0.2-1.0)
[2018-03-02 23:44] LABS: URINE LEUK ESTERASE 3+ (NEGATIVE)
[2018-03-02 23:51] LABS: EPI CELLS RARE /HPF (FEW); URINE MUCUS RARE
[2018-03-03] MEDS ORDERED: ACETAMINOPHEN 325 MG TABLET (FP) ONE (01:16)
[2018-03-03] MEDS ORDERED: RANITIDINE HCL 150 MG TABLET (FP) ONE (01:16)
[2018-03-03] MEDS ORDERED: amLODIPine BESYLATE 5 MG TABLET (FP) ONE (09:56)
[2018-03-03] MEDS ORDERED: ANASTROZOLE 1 MG TABLET PO SCH (10:00)
[2018-03-03] MEDS ORDERED: FLUTICASONE PROP 0.05% 16 GM NASAL SPRAY NS SCH ×3 (10:00)
[2018-03-03] MEDS ORDERED: GABAPENTIN 300 MG CAPSULE (FP) PO SCH (10:00)
[2018-03-03] MEDS: ENOXAPARIN NA (PORCINE) 100 MG/1 ML DISP.SYRIN SQ SCH ×2 (10:03→22:54)
[2018-03-03] MEDS: CHOLECALCIFEROL (VITAMIN D3) 1,000 UNIT TABLET (FP) PO SCH (10:03)
[2018-03-03] MEDS: RANITIDINE HCL 150 MG TABLET (FP) PO SCH ×2 (10:03→22:55)
[2018-03-03] MEDS: FLUTICASONE PROP 0.05% 16 GM NASAL SPRAY NS SCH (10:04)
[2018-03-03] MEDS: CAPECITABINE 500 MG TABLET PO SCH ×2 (10:07→22:55)
[2018-03-03 10:34] LABS: PHOSPHOROUS 3.7 mg/dL (2.5-4.9)
--- NOTE | 2018-03-03 11:48 | HP ---
Admitting History and Physical - Primary Care Physician PCP: Sonya Adame I - Admission History Source: Patient, Family Member Limitations to Obtaining History: No Limitations - Past Medical History Cardiovascular: Yes: AFIB, Deep Vein Thrombosis Pulmonary: Yes: Other (recurrent left malignant effusion s/p VATS) Gastrointestinal: Yes: Diverticulosis, GERD. No: Ascites Heme/Onc: Yes: Cancer (on Arimidex), Other (hormonal Rx) Psych: Yes: Depression Musculoskeletal: Yes: Other (left lower ext post-polio) - Past Surgical History Past Surgical History: Yes: Appendectomy, Cholecystectomy, Mastectomy (bilateral ) - Smoking History Smoking history: Unknown if ever smoked Have you smoked in the past 12 months: No - Alcohol/Substance Use Hx Alcohol Use: No History of Substance Use: reports: None - Social History ADL: Family Assistance History of Recent Travel: No Home Medications - Allergies Allergies/Adverse Reactions: Allergies Allergy/AdvReac Type Severity Reaction Status Date / Time codeine [Codeine] Allergy Severe DIZZINESS Verified 01/13/17 14:32 epinephrine Allergy Severe PALPITATION Verified 01/13/17 14:32 meperidine HCl [From Demerol] Allergy Severe Nausea Verified 01/13/17 14:32 morphine Allergy Severe WEAKNESS Verified 01/13/17 14:32 oxycodone HCl [From Percocet] Allergy Severe Nausea Verified 01/13/17 14:32 cephalexin [Cephalexin] Allergy Intermediate Hives Verified 01/13/17 14:32 diazepam [From Valium] Allergy Intermediate Hives Verified 01/13/17 14:32 ketorolac tromethamine Allergy Intermediate Hives Verified 01/13/17 14:32 [From Toradol] prochlorperazine edisylate Allergy Intermediate Hives Verified 05/07/16 07:36 [From Compazine] prochlorperazine maleate Allergy Intermediate Hives Verified 01/13/17 14:32 [From Compazine] ampicillin Allergy SEVERE RASH Verified 01/13/17 14:32 celery Allergy Verified 01/13/17 14:32 ciprofloxacin [From Cipro] Allergy SEVERE RASH Verified 01/13/17 14:32 ciprofloxacin HCl Allergy SEVERE RASH Verified 01/13/17 14:32 [From Cipro] clindamycin Allergy SEVERE RASH Verified 01/13/17 14:32 fentanyl Allergy Vomiting Verified 01/13/17 14:32 pineapple Allergy THROAT Verified 01/13/17 14:32 SWELLING piperacillin Allergy SEVERE RASH Verified 01/13/17 14:32 sulfur [From Sulfur-8] Allergy Verified 03/02/18 12:32 vancomycin Allergy SEVERE RASH Verified 01/13/17 14:32 - Home Medications Home Medications: Ambulatory Orders Ranitidine [Zantac -] 150 mg PO BID 06/24/12 Acetaminophen [Tylenol] 650 mg PO PRN 08/15/15 Diphenhydramine [Benadryl Capsule -] 50 mg PO Q6H PRN #120 capsule 08/26/15 Enoxaparin [Lovenox -] 90 mg SQ BID disp.syrin 08/26/15 Anastrozole [Arimidex -] 1 mg PO DAILY 05/06/16 Cholecalciferol (Vitamin D3) [Vitamin D3] 4,000 unit PO DAILY 05/06/16 Fluticasone Prop 0.05% Nasal [Flonase -] 1 - 2 spray NS DAILY 01/13/17 Nystatin 100,000 unit MC BID 01/13/17 Talc/Cellulos/Chloroxy/Aldioxa [Zeasorb Powder] 0 gm TP BID 01/13/17 Silver Sulfadiazine 1% Top Cr [Silvadene -] 1 applic TP BID #1 jar 01/16/17 Capecitabine [Xeloda] 1,000 mg PO DAILY 03/02/18 Capecitabine [Xeloda] 500 mg PO HS 03/02/18 Gabapentin 300 mg PO TID 03/02/18 Amlodipine Besylate 5 mg PO DAILY 03/03/18 Family Disease History - Family Disease History Family Disease History: CA: Brother (Bladder), Other: Father (bleeding ulcer), Mother (CHF) Review of Systems - Review of Systems Constitutional: reports: Loss of Appetite Eyes: reports: No Symptoms Neck: reports: No Symptoms Cardiovascular: reports: Edema Respiratory: reports: SOB on Exertion Gastrointestinal: reports: No Symptoms Genitourinary: reports: No Symptoms Breasts: reports: Other (B/L mastectomy) Musculoskeletal: reports: Decreased ROM Integumentary: reports: Wound (Buttocks) Neurological: reports: Parasthesia, Weakness Endocrine: reports: No Symptoms Hematology/Lymphatic: reports: No Symptoms Psychiatric: reports: Depression Physical Examination Vital Signs: Vital Signs Temperature 99.0 F 03/03/18 06:27 Pulse Rate 68 03/03/18 08:34 Respiratory Rate 16 03/03/18 08:34 Blood Pressure 134/73 03/03/18 08:34 O2 Sat by Pulse Oximetry (%) 95 03/03/18 08:34 Constitutional: Yes: Well Nourished, Calm Eyes: Yes: Conjunctiva Clear HENT: Yes: Atraumatic, Normocephalic Neck: Yes: Supple, Trachea Midline Cardiovascular: Yes: Regular Rate and Rhythm Respiratory: Yes: Regular, CTA Bilaterally Gastrointestinal: Yes: Normal Bowel Sounds, Soft ...Rectal Exam: Yes: Deferred Renal/: Yes: WNL Musculoskeletal: Yes: Back Pain, Muscle Weakness Extremities: Yes: WNL Edema: Yes Edema: LLE: Trace, RLE: Trace Peripheral Pulses WNL: No Integumentary: Yes: WNL Neurological: Yes: Alert, Oriented, Weakness ...Motor Strength: WNL Psychiatric: Yes: Alert, Oriented Labs: CBC, BMP 03/02/18 13:48 03/02/18 13:32 Problem List - Problems (1) Leg edema, right Assessment/Plan: Doppler RT LE to r/o DVT Code(s): R60.0 - LOCALIZED EDEMA Assessment/Plan 78 y/o female found lying in bed in ER with O2 in place. Sister present at bedside. PMHX includes Breast Ca that metastasized to lungs and bone, Hx of DVTs , HTN and GERD. Pt reports back and B/L hip pain, rated as 10/10 on pain scale. Pain meds discussed with pt/sister. Pt stated that she is allergic to multiple pain meds. Refused Anastrazole in ER. Adamant that she will only take meds that she was taking at home. Came to Er for edema of Rt LE and increasing pain in same. Admitted for observation.
--- NOTE | 2018-03-03 16:48 | EKG ---
Test Reason : Blood Pressure : / mmHG Vent. Rate : 073 BPM Atrial Rate : 073 BPM P-R Int : 188 ms QRS Dur : 090 ms QT Int : 374 ms P-R-T Axes : 042 -07 -03 degrees QTc Int : 412 ms SINUS RHYTHM WITH PREMATURE SUPRAVENTRICULAR COMPLEXES OTHERWISE NORMAL ECG WHEN COMPARED WITH ECG OF 13-JAN-2017 14:25, PREMATURE SUPRAVENTRICULAR COMPLEXES ARE NOW PRESENT Confirmed by CUONG TEE, JUAN ([id number]) on 03/03/2018 3:48:11 PM Referred By: Confirmed By:JUAN HUTCHINS MD
[2018-03-03] MEDS: ACETAMINOPHEN 500 MG TABLET (FP) PO SCH ×2 (16:52→22:54)
[2018-03-03] MEDS ORDERED: ACETAMINOPHEN INJECTION 100 ML IVPB ONE (16:55)
[2018-03-03] MEDS: DEXTROSE 5%-0.45% SALINE 1,000 ML IV SCH ×2 (18:02→23:46)
[2018-03-03] MEDS: NEOMYCIN/POLYMYXIN/BACITRACIN (TRIPLE ANTIBIOTIC) 28 GM OINTMENT TP SCH ×2 (21:22→22:55)
--- NOTE | 2018-03-03 21:48 | CONSULT ---
Consult Consult Specialty:: Medical Oncology Referred by:: Dr Adame Reason for Consultation:: follow up of breast cancer IV ; pain - History of Present Illness Chief Complaint: pain in hips , lateral rib areas increased in severity History of Present Illness: 78 y/o F w hx metastatic breast cancer , mainly to bones , chest w pleural effusion , hx b/l mastectomies ; s/p RT to chest and R hip (palliative) , on Arimidex and capecitabine one week on one week off , who is admitted with worsening of her usual pains , hips R>L and lateral rib areas L>R X several days , difficulty walking due to pain . She also noted a mild swelling L thigh and burning sensation in the skin there . She only takes Tylenol PRN due to either allergic sx or intolerance to narcotic class . She has episodes of nausea w capecitabine but wishes to finish this week of Rx. CT a/p in ER mentioned the extensive bony mets and could not r/o spinal cord compression . She has some relief from iv Tylenol. She reports weakness lower extremities due to the pain.Denies incontinenece of stool/urine. - History Source History Provided By: Patient Limitations to Obtaining History: No Limitations - Past Medical History MOLDER LABELS: No: Alzheimer's, CVA, Dementia, Migraine, Multiple Sclerosis, Peripheral Neuropathy, Parkinson's, Seizure, Syncope, TIA, Vertigo, Other Cardio/Vascular: Yes: AFIB, Deep Vein Thrombosis Pulmonary: Yes: Other (recurrent left malignant effusion s/p VATS) Gastrointestinal: Yes: Diverticulosis, GERD. No: Ascites Hepatobiliary: No: Cirrhosis, Cholelithiasis, Cholecystitis, Choledocholithiasis , Hepatitis A, Hepatitis B, Hepatitis C, Other Renal/: No: Renal Failure, Renal Inusuff, BPH, Cancer, Hematuria, Hemodialysis , Neurogenic Bladder, Renal Calculi, UTI, Other Heme/Onc: Yes: Cancer, Current Chemotherapy, Hypercoaguable State Infectious Disease: No: AIDS, C-Diff, Herpes Zoster, HIV, MRSA, STD's, Tuberculosis, VREF, Other Psych: Yes: Depression Musculoskeletal: Yes: Other (left lower ext post-polio) Rheumatology: No: Fibromyalgia, Gout, Lupus, Rheumatoid Arthritis, Sarcoidosis, Vasculitis, Other Endocrine: No: Filer's Disease, Rios's Disease, Diabetes Insipidus, Diabetes Mellitus, Hyperparathyroidism, Hyperthyroidism, Hypothyroidism, Osteopenia, SIADH, Other Dermatology: No: Basal Cell, Cellulitis, Eczema, Melanoma, Psoriasis, Squamous Cell, Other Additional Medical History: 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,cholecystectomy appendectomy - Past Surgical History Past Surgical History: Yes: Appendectomy, Cholecystectomy, Mastectomy (bilateral ) - Alcohol/Substance Use Hx Alcohol Use: No History of Substance Use: reports: None - Smoking History Smoking history: Unknown if ever smoked Have you smoked in the past 12 months: No - Social History ADL: Family Assistance History of Recent Travel: No Home Medications - Allergies Allergies/Adverse Reactions: Allergies Allergy/AdvReac Type Severity Reaction Status Date / Time codeine [Codeine] Allergy Severe DIZZINESS Verified 01/13/17 14:32 epinephrine Allergy Severe PALPITATION Verified 01/13/17 14:32 meperidine HCl [From Demerol] Allergy Severe Nausea Verified 01/13/17 14:32 morphine Allergy Severe WEAKNESS Verified 01/13/17 14:32 oxycodone HCl [From Percocet] Allergy Severe Nausea Verified 01/13/17 14:32 cephalexin [Cephalexin] Allergy Intermediate Hives Verified 01/13/17 14:32 diazepam [From Valium] Allergy Intermediate Hives Verified 01/13/17 14:32 ketorolac tromethamine Allergy Intermediate Hives Verified 01/13/17 14:32 [From Toradol] prochlorperazine edisylate Allergy Intermediate Hives Verified 05/07/16 07:36 [From Compazine] prochlorperazine maleate Allergy Intermediate Hives Verified 01/13/17 14:32 [From Compazine] ampicillin Allergy SEVERE RASH Verified 01/13/17 14:32 celery Allergy Verified 01/13/17 14:32 ciprofloxacin [From Cipro] Allergy SEVERE RASH Verified 01/13/17 14:32 ciprofloxacin HCl Allergy SEVERE RASH Verified 01/13/17 14:32 [From Cipro] clindamycin Allergy SEVERE RASH Verified 01/13/17 14:32 fentanyl Allergy Vomiting Verified 01/13/17 14:32 pineapple Allergy THROAT Verified 01/13/17 14:32 SWELLING piperacillin Allergy SEVERE RASH Verified 01/13/17 14:32 sulfur [From Sulfur-8] Allergy Verified 03/02/18 12:32 vancomycin Allergy SEVERE RASH Verified 01/13/17 14:32 - Home Medications Home Medications: Ambulatory Orders Ranitidine [Zantac -] 150 mg PO BID 06/24/12 Acetaminophen [Tylenol] 650 mg PO PRN 08/15/15 Diphenhydramine [Benadryl Capsule -] 50 mg PO Q6H PRN #120 capsule 08/26/15 Enoxaparin [Lovenox -] 90 mg SQ BID disp.syrin 08/26/15 Anastrozole [Arimidex -] 1 mg PO DAILY 05/06/16 Cholecalciferol (Vitamin D3) [Vitamin D3] 4,000 unit PO DAILY 05/06/16 Fluticasone Prop 0.05% Nasal [Flonase -] 1 - 2 spray NS DAILY 01/13/17 Nystatin 100,000 unit MC BID 01/13/17 Talc/Cellulos/Chloroxy/Aldioxa [Zeasorb Powder] 0 gm TP BID 01/13/17 Silver Sulfadiazine 1% Top Cr [Silvadene -] 1 applic TP BID #1 jar 01/16/17 Capecitabine [Xeloda] 1,000 mg PO DAILY 03/02/18 Capecitabine [Xeloda] 500 mg PO HS 03/02/18 Gabapentin 300 mg PO TID 03/02/18 Amlodipine Besylate 5 mg PO DAILY 03/03/18 Family Disease History - Family Disease History Family Disease History: CA: Brother (Bladder), Other: Father (bleeding ulcer), Mother (CHF) Review of Systems - Review of Systems Constitutional: reports: Weakness Eyes: reports: No Symptoms HENT: reports: No Symptoms Neck: reports: No Symptoms Cardiovascular: reports: No Symptoms Gastrointestinal: reports: No Symptoms Genitourinary: reports: No Symptoms Musculoskeletal: reports: Joint Pain, Muscle Weakness, Other (rib pains) Integumentary: reports: No Symptoms Neurological: reports: Parasthesia, Weakness Endocrine: reports: No Symptoms Hematology/Lymphatic: reports: No Symptoms Psychiatric: reports: Depression Physical Exam Vital Signs: Vital Signs Temperature 99.0 F 03/03/18 06:27 Pulse Rate 68 03/03/18 20:34 Respiratory Rate 20 03/03/18 20:34 Blood Pressure 117/50 03/03/18 20:34 O2 Sat by Pulse Oximetry (%) 98 03/03/18 20:34 Constitutional: Yes: Well Nourished, Anxious, Obese Eyes: Yes: Conjunctiva Clear, EOM Intact HENT: Yes: WNL, Atraumatic, Normocephalic Neck: Yes: WNL, Supple, Trachea Midline Cardiovascular: Yes: WNL, Pulse Irregular. No: Bradycardia, Tachycardia, Bruit , JVD, Gallop, Murmur, Rub, S1, S2, S3, S4, Varicosities, Other Respiratory: Yes: WNL, Regular, CTA Bilaterally Gastrointestinal: Yes: WNL, Normal Bowel Sounds, Soft, Abdomen, Obese Breast(s): Yes: Other (mastectomies) Musculoskeletal: Yes: Other (decreased ROM hips , pain R hip on flexion thigh) Edema: Yes Edema: LLE: Trace, RLE: Trace Labs: CBC, BMP 03/02/18 13:48 03/02/18 13:32 Problem List - Problems (1) Malignant bone pain Code(s): G89.3 - NEOPLASM RELATED PAIN (ACUTE) (CHRONIC); M89.8X9 - OTHER SPECIFIED DISORDERS OF BONE, UNSPECIFIED SITE (2) Hypercoagulable state Code(s): D68.59 - OTHER PRIMARY THROMBOPHILIA Assessment/Plan pt w symptoms prob due to extensive bone involvement , but r/o spinal cord compression and r/p path fx hips ; suggest MRI T/L/S spine and xrays b/l hips ; needs at least iv Tylenol pre-med for scan and for xrays . Pt may continue her capecitabine at dose prescribed by Dr Guzman. If no critical issues found, then pt to try to see pain specialists at [facility], Dr Pete or Jimena to look at other alternatives involving invasive proceedures such as pain pump.Can consult pain specialist at [facility] if pain does not wane. In addition, can try decadron dose 10mg iv as a trial to see if helps.Pt still not ready to accept a palliative care setting.
[2018-03-04] MEDS: ACETAMINOPHEN 500 MG TABLET (FP) PO SCH ×3 (06:51→23:03)
[2018-03-04 07:18] LABS: HEMATOCRIT 34.4 % (32.4-45.2); HEMOGLOBIN 11.4 GM/dL (10.7-15.3); MCH 28.6 pg (25.7-33.7); MCHC 33.2 g/dl (32.0-36.0); MEAN CELL VOLUME 86.1 fl (80-96); MEAN PLT VOLUME 7.9 fl (7.5-11.1); PLATELET COUNT 149 K/MM3 (134-434); RBC 3.99 M/mm3 (3.60-5.2); RDW 16.3 % (11.6-15.6); WHITE BLOOD COUNT 7.5 K/mm3 (4.0-10.0)
[2018-03-04 07:41] LABS: ALBUMIN 2.9 g/dl (3.4-5.0); ANION GAP 9 (8-16); BILIRUBIN,TOTAL 0.3 mg/dL (0.2-1.0); BLOOD UREA NITROGEN 7 mg/dL (7-18); CALCIUM 8.8 mg/dL (8.5-10.1); CHLORIDE 109 mmol/L (98-107); CO2 27 mmol/L (21-32); CREATININE 0.4 mg/dL (0.55-1.02); GLUCOSE,RANDOM 100 mg/dL (74-106); POTASSIUM 3.1 mmol/L (3.5-5.1); SGOT/AST 9 U/L (15-37); SGPT/ALT 15 U/L (12-78); SODIUM 145 mmol/L (136-145)
[2018-03-04 07:42] LABS: ALK PHOS 111 U/L (45-117); TOT PROT 5.7 g/dl (6.4-8.2)
[2018-03-04] MEDS ORDERED: PT OWN MED DRAWER 7, Y5N ONE (10:59)
[2018-03-04] MEDS: CHOLECALCIFEROL (VITAMIN D3) 1,000 UNIT TABLET (FP) PO SCH (11:06)
[2018-03-04] MEDS: ENOXAPARIN NA (PORCINE) 100 MG/1 ML DISP.SYRIN SQ SCH ×2 (11:06→23:03)
[2018-03-04] MEDS: DEXTROSE 5%-0.45% SALINE 1,000 ML IV SCH ×3 (11:07→23:02)
[2018-03-04] MEDS: RANITIDINE HCL 150 MG TABLET (FP) PO SCH ×2 (11:07→23:04)
[2018-03-04] MEDS: CAPECITABINE 500 MG TABLET PO SCH ×2 (11:08→22:33)
--- NOTE | 2018-03-04 12:05 | PN ---
Progress Note (short form) - Note Progress Note: 78 y/o female found lying in bed. O2 in place. C/o of burning on urination and incomplete emptying. Vital Signs Period Temp Pulse Resp BP Sys/Saul Pulse Ox Last 24 Hr 97.6 F-98.2 F 61-70 17-20 117-145/50-66 98-99 CBC, BMP 03/04/18 06:15 03/04/18 06:15 HEENT- NL Neck-Supple Lungs- CTAB Heart- S1/S2 Abd- Soft, NT Ext- No LE edema Active Medications Acetaminophen (Tylenol -) 1,000 mg PO TID [facility] Last Admin: 03/04/18 06:51 Dose: 1,000 mg Capecitabine (Xeloda -) 500 mg PO HS [facility] Last Admin: 03/03/18 22:55 Dose: Not Given Capecitabine (Xeloda -) 1,000 mg PO DAILY [facility] Last Admin: 03/04/18 11:08 Dose: Not Given Cholecalciferol (Vitamin D3 -) 4,000 unit PO DAILY [facility] Last Admin: 03/04/18 11:06 Dose: 4,000 unit Diphenhydramine HCl (Benadryl -) 50 mg PO Q6H PRN PRN Reason: ANXIETY Enoxaparin Sodium (Lovenox -) 90 mg SQ BID [facility] Last Admin: 03/04/18 11:06 Dose: 90 mg Fluticasone Propionate (Flonase -) 2 spray NS DAILY [facility] Last Admin: 03/03/18 10:04 Dose: 2 puff Dextrose/Sodium Chloride (D5-1/2ns -) 1,000 mls @ 100 mls/hr IV ASDIR [facility] Last Admin: 03/04/18 11:07 Dose: 100 mls/hr Neomycin/Polymyxin/Bacitracin (Neosporin Topical Ointment -) 1 applic TP BID [facility] Last Admin: 03/03/18 22:55 Dose: Not Given Nitrofurantoin Macrocrystals (Macrodantin -) 100 mg PO Q6HPO [facility] Stop: 03/09/18 06:01 Non-Formulary Medication (Nystatin [Nystatin]) 100,000 unit MC BID [facility] Ranitidine HCl (Zantac -) 150 mg PO BID [facility] Last Admin: 03/04/18 11:07 Dose: 150 mg #UTI Neg urine culture. Leukocytes/ Blood noted on UA Nitrofurantoin rx'd #Malignancy CT scan shows possible spinal involvement MRI ordered Oncology consult appreciated Problem List - Problems (1) Malignant bone pain Code(s): G89.3 - NEOPLASM RELATED PAIN (ACUTE) (CHRONIC); M89.8X9 - OTHER SPECIFIED DISORDERS OF BONE, UNSPECIFIED SITE (2) Hypercoagulable state Code(s): D68.59 - OTHER PRIMARY THROMBOPHILIA (3)Rt Leg pain Neg Doppler Problem List - Problems (1) Leg edema, right Code(s): R60.0 - LOCALIZED EDEMA
[2018-03-04] MEDS: NITROFURANTOIN MACROCRYSTAL 50 MG CAPSULE (FP) PO SCH ×3 (13:35→23:05)
[2018-03-04] MEDS: amLODIPine BESYLATE 5 MG TABLET (FP) PO SCH (14:07)
[2018-03-04] MEDS: GABAPENTIN 300 MG CAPSULE (FP) PO SCH ×2 (14:07→23:04)
[2018-03-04] MEDS: NEOMYCIN/POLYMYXIN/BACITRACIN (TRIPLE ANTIBIOTIC) 28 GM OINTMENT TP SCH ×2 (15:47→23:29)
[2018-03-04] MEDS: FLUTICASONE PROP 0.05% 16 GM NASAL SPRAY NS SCH (15:48)
[2018-03-04] MEDS: POTASSIUM CHLORIDE TABS 20 MEQ TABLET.ER (FP) PO SCH (23:03)
[2018-03-05] MEDS ORDERED: PT OWN MED DRAWER 7, Y5N ONE ×3 (05:48→18:20)
[2018-03-05] MEDS: NITROFURANTOIN MACROCRYSTAL 50 MG CAPSULE (FP) PO SCH ×4 (06:16→23:09)
[2018-03-05] MEDS: ACETAMINOPHEN 500 MG TABLET (FP) PO SCH ×3 (06:21→21:49)
[2018-03-05] MEDS: GABAPENTIN 300 MG CAPSULE (FP) PO SCH ×3 (06:21→21:48)
[2018-03-05] MEDS: DEXTROSE 5%-0.45% SALINE 1,000 ML IV SCH ×3 (09:36→22:05)
[2018-03-05] MEDS: POTASSIUM CHLORIDE TABS 20 MEQ TABLET.ER (FP) PO SCH (09:37)
[2018-03-05] MEDS: amLODIPine BESYLATE 5 MG TABLET (FP) PO SCH (09:37)
[2018-03-05] MEDS: RANITIDINE HCL 150 MG TABLET (FP) PO SCH ×2 (09:37→21:48)
[2018-03-05] MEDS: ENOXAPARIN NA (PORCINE) 100 MG/1 ML DISP.SYRIN SQ SCH ×2 (09:38→21:47)
[2018-03-05] MEDS: CHOLECALCIFEROL (VITAMIN D3) 1,000 UNIT TABLET (FP) PO SCH (09:38)
[2018-03-05] MEDS: NEOMYCIN/POLYMYXIN/BACITRACIN (TRIPLE ANTIBIOTIC) 28 GM OINTMENT TP SCH ×3 (09:42→22:18)
[2018-03-05] MEDS: CAPECITABINE 500 MG TABLET PO SCH (09:42)
[2018-03-05] MEDS: FLUTICASONE PROP 0.05% 16 GM NASAL SPRAY NS SCH (10:24)
--- NOTE | 2018-03-05 17:46 | PN ---
Progress Note, Physician - Current Medication List Current Medications: Active Medications Acetaminophen (Tylenol -) 1,000 mg PO TID [facility] Last Admin: 03/05/18 13:42 Dose: 1,000 mg Amlodipine Besylate (Norvasc -) 5 mg PO DAILY [facility] Last Admin: 03/05/18 09:37 Dose: 5 mg Capecitabine (Xeloda -) 1,000 mg PO 0800 [facility] Capecitabine (Xeloda -) 500 mg PO 1830 [facility] Cholecalciferol (Vitamin D3 -) 4,000 unit PO DAILY [facility] Last Admin: 03/05/18 09:38 Dose: 4,000 unit Diphenhydramine HCl (Benadryl -) 50 mg PO Q6H PRN PRN Reason: ANXIETY Enoxaparin Sodium (Lovenox -) 90 mg SQ BID [facility] Last Admin: 03/05/18 09:38 Dose: 90 mg Fluticasone Propionate (Flonase -) 2 spray NS DAILY [facility] Last Admin: 03/05/18 10:24 Dose: 2 puff Gabapentin (Neurontin -) 300 mg PO TID [facility] Last Admin: 03/05/18 13:42 Dose: 300 mg Dextrose/Sodium Chloride (D5-1/2ns -) 1,000 mls @ 100 mls/hr IV ASDIR [facility] Last Admin: 03/05/18 09:36 Dose: 100 mls/hr Neomycin/Polymyxin/Bacitracin (Neosporin Topical Ointment -) 1 applic TP BID [facility] Last Admin: 03/04/18 23:29 Dose: Not Given Nitrofurantoin Macrocrystals (Macrodantin -) 100 mg PO Q6HPO [facility] Stop: 03/09/18 06:01 Last Admin: 03/05/18 13:42 Dose: 100 mg Non-Formulary Medication (Nystatin [Nystatin]) 100,000 unit MC BID [facility] Ranitidine HCl (Zantac -) 150 mg PO BID [facility] Last Admin: 03/05/18 09:37 Dose: 150 mg - Objective Vital Signs: Vital Signs Temperature 98.1 F 03/05/18 14:20 Pulse Rate 70 03/05/18 14:20 Respiratory Rate 18 03/05/18 15:00 Blood Pressure 138/72 03/05/18 14:20 O2 Sat by Pulse Oximetry (%) 98 03/05/18 15:00 Labs: CBC, BMP 03/04/18 06:15 03/04/18 06:15
[2018-03-05] MEDS ORDERED: CAPECITABINE 500 MG TABLET PO SCH (18:30)
[2018-03-06] MEDS: GABAPENTIN 300 MG CAPSULE (FP) PO SCH ×3 (06:10→23:20)
[2018-03-06] MEDS: NITROFURANTOIN MACROCRYSTAL 50 MG CAPSULE (FP) PO SCH ×3 (06:10→18:54)
[2018-03-06] MEDS: ACETAMINOPHEN 500 MG TABLET (FP) PO SCH ×4 (06:11→23:20)
[2018-03-06] MEDS: DEXTROSE 5%-0.45% SALINE 1,000 ML IV SCH ×2 (07:51→18:19)
[2018-03-06] MEDS ORDERED: CAPECITABINE 500 MG TABLET PO SCH (08:00)
[2018-03-06] MEDS ORDERED: PT OWN MED DRAWER 7, Y5N ONE ×4 (11:19→20:39)
[2018-03-06] MEDS: FLUTICASONE PROP 0.05% 16 GM NASAL SPRAY NS SCH (11:21)
[2018-03-06] MEDS: ENOXAPARIN NA (PORCINE) 100 MG/1 ML DISP.SYRIN SQ SCH ×2 (11:21→21:45)
[2018-03-06] MEDS: RANITIDINE HCL 150 MG TABLET (FP) PO SCH ×2 (11:22→23:20)
[2018-03-06] MEDS: amLODIPine BESYLATE 5 MG TABLET (FP) PO SCH ×2 (11:22→18:58)
[2018-03-06] MEDS: CHOLECALCIFEROL (VITAMIN D3) 1,000 UNIT TABLET (FP) PO SCH (11:22)
[2018-03-06] MEDS: ONDANSETRON 4 MG/2 ML VIAL IVPB PRN (12:05)
[2018-03-06] MEDS: NEOMYCIN/POLYMYXIN/BACITRACIN (TRIPLE ANTIBIOTIC) 28 GM OINTMENT TP SCH ×2 (12:12→22:55)
--- NOTE | 2018-03-06 19:14 | PN ---
Progress Note, Physician History of Present Illness: Pt with multiple complaints of weakness/nausea/pain of lower back Pt has poor appetite and states is not eating - Current Medication List Current Medications: Active Medications Acetaminophen (Tylenol -) 1,000 mg PO TID [facility] Last Admin: 03/06/18 14:40 Dose: Not Given Amlodipine Besylate (Norvasc -) 5 mg PO DAILY [facility] Last Admin: 03/06/18 18:58 Dose: 5 mg Cholecalciferol (Vitamin D3 -) 4,000 unit PO DAILY [facility] Last Admin: 03/06/18 11:22 Dose: Not Given Diphenhydramine HCl (Benadryl -) 50 mg PO Q6H PRN PRN Reason: ANXIETY Enoxaparin Sodium (Lovenox -) 90 mg SQ BID [facility] Last Admin: 03/06/18 11:21 Dose: 90 mg Fluticasone Propionate (Flonase -) 2 spray NS DAILY [facility] Last Admin: 03/06/18 11:21 Dose: Not Given Gabapentin (Neurontin -) 300 mg PO TID [facility] Last Admin: 03/06/18 14:40 Dose: Not Given Dextrose/Sodium Chloride (D5-1/2ns -) 1,000 mls @ 100 mls/hr IV ASDIR [facility] Last Admin: 03/06/18 18:19 Dose: 100 mls/hr Neomycin/Polymyxin/Bacitracin (Neosporin Topical Ointment -) 1 applic TP BID [facility] Last Admin: 03/06/18 12:12 Dose: 1 applic Nitrofurantoin Macrocrystals (Macrodantin -) 100 mg PO Q6HPO [facility] Stop: 03/09/18 06:01 Last Admin: 03/06/18 18:54 Dose: 100 mg Non-Formulary Medication (Nystatin [Nystatin]) 100,000 unit MC BID [facility] Ondansetron HCl (Zofran Injection) 4 mg IVPB Q6H PRN PRN Reason: NAUSEA AND/OR VOMITING Last Admin: 03/06/18 12:05 Dose: 4 mg Ranitidine HCl (Zantac -) 150 mg PO BID [facility] Last Admin: 03/06/18 11:22 Dose: Not Given - Objective Vital Signs: Vital Signs Temperature 98.0 F 03/06/18 18:00 Pulse Rate 77 03/06/18 18:00 Respiratory Rate 18 03/06/18 18:00 Blood Pressure 148/77 03/06/18 18:00 O2 Sat by Pulse Oximetry (%) 97 03/06/18 15:00 Neck: Yes: WNL, Supple Cardiovascular: Yes: WNL, Regular Rate and Rhythm Respiratory: Yes: WNL, Regular, CTA Bilaterally Gastrointestinal: Yes: WNL, Normal Bowel Sounds, Soft, Abdomen, Obese Labs: CBC, BMP 03/04/18 06:15 03/04/18 06:15 Problem List - Problems (1) Metastatic breast cancer Assessment/Plan: Pt w/ chronic pain Awaiting MRI LS Spine May benefit from pain management consult As per onco hold chemotx due to nausea/weakness Code(s): C50.919 - MALIGNANT NEOPLASM OF UNSP SITE OF UNSPECIFIED FEMALE BREAST ; C79.9 - SECONDARY MALIGNANT NEOPLASM OF UNSPECIFIED SITE (2) Paroxysmal a-fib Assessment/Plan: Cont cardizem/lovenox Heart rate controlled Code(s): I48.0 - PAROXYSMAL ATRIAL FIBRILLATION (3) HTN (hypertension) Code(s): I10 - ESSENTIAL (PRIMARY) HYPERTENSION (4) Hypercoagulable state Assessment/Plan: Co0nt lovenox Code(s): D68.59 - OTHER PRIMARY THROMBOPHILIA (5) Anxiety and depression Code(s): F41.9 - ANXIETY DISORDER, UNSPECIFIED; F32.9 - MAJOR DEPRESSIVE DISORDER, SINGLE EPISODE, UNSPECIFIED
[2018-03-07] MEDS: NITROFURANTOIN MACROCRYSTAL 50 MG CAPSULE (FP) PO SCH ×4 (00:53→19:38)
[2018-03-07] MEDS: DEXTROSE 5%-0.45% SALINE 1,000 ML IV SCH ×2 (03:45→16:28)
[2018-03-07] MEDS: ONDANSETRON 4 MG/2 ML VIAL IVPB PRN (03:45)
[2018-03-07] MEDS: GABAPENTIN 300 MG CAPSULE (FP) PO SCH ×3 (06:37→23:16)
[2018-03-07] MEDS: ACETAMINOPHEN 500 MG TABLET (FP) PO SCH ×3 (06:37→23:15)
[2018-03-07 08:53] LABS: BASO % 0.7 % (0-2.0); EOS % 2.2 % (0-4.5); HEMATOCRIT 33.8 % (32.4-45.2); HEMOGLOBIN 11.4 GM/dL (10.7-15.3); LYMPH % 15.3 % (8-40); MCH 28.8 pg (25.7-33.7); MCHC 33.6 g/dl (32.0-36.0); MEAN CELL VOLUME 85.8 fl (80-96); MEAN PLT VOLUME 7.6 fl (7.5-11.1); MONO % 6.4 % (3.8-10.2); NEUT % 75.4 % (42.8-82.8); PLATELET COUNT 150 K/MM3 (134-434); RBC 3.94 M/mm3 (3.60-5.2); RDW 15.8 % (11.6-15.6); WHITE BLOOD COUNT 6.8 K/mm3 (4.0-10.0)
[2018-03-07 09:28] LABS: ALBUMIN 2.8 g/dl (3.4-5.0); ANION GAP 8 (8-16); BILIRUBIN,TOTAL 0.2 mg/dL (0.2-1.0); BLOOD UREA NITROGEN 5 mg/dL (7-18); CALCIUM 8.8 mg/dL (8.5-10.1); CHLORIDE 106 mmol/L (98-107); CO2 29 mmol/L (21-32); CREATININE 0.4 mg/dL (0.55-1.02); GLUCOSE,RANDOM 119 mg/dL (74-106); POTASSIUM 3.3 mmol/L (3.5-5.1); SGOT/AST 10 U/L (15-37); SGPT/ALT 13 U/L (12-78); SODIUM 143 mmol/L (136-145)
[2018-03-07 09:31] LABS: ALK PHOS 121 U/L (45-117); TOT PROT 5.6 g/dl (6.4-8.2)
[2018-03-07] MEDS: CHOLECALCIFEROL (VITAMIN D3) 1,000 UNIT TABLET (FP) PO SCH (11:22)
[2018-03-07] MEDS: amLODIPine BESYLATE 5 MG TABLET (FP) PO SCH (11:22)
[2018-03-07] MEDS: ENOXAPARIN NA (PORCINE) 100 MG/1 ML DISP.SYRIN SQ SCH ×2 (11:23→23:16)
[2018-03-07] MEDS: FLUTICASONE PROP 0.05% 16 GM NASAL SPRAY NS SCH (11:23)
[2018-03-07] MEDS: RANITIDINE HCL 150 MG TABLET (FP) PO SCH ×2 (11:23→23:16)
[2018-03-07] MEDS: NEOMYCIN/POLYMYXIN/BACITRACIN (TRIPLE ANTIBIOTIC) 28 GM OINTMENT TP SCH ×2 (11:23→23:16)
--- NOTE | 2018-03-07 18:05 | PN ---
Progress Note (short form) - Note Progress Note: 78 y/o female found lying in bed with multiple complaints of nausea, not eating well, need to have a BM. 3 BMs yest, woman in next bed being sick and she can't be near sick people. Vital Signs Period Temp Pulse Resp BP Sys/Saul Pulse Ox Last 24 Hr 98.0 F-98.0 F 64-76 18-22 116-145/57-63 97-97 CBC, BMP 03/07/18 08:00 03/07/18 07:30 HEENT- NL Neck- Trachea Midline Lungs- CTAB Heart- S1/ S2 Abd- Pos BS x 4, soft, NT Ext- No Le edema Active Medications Acetaminophen (Tylenol -) 1,000 mg PO TID [facility] Last Admin: 03/07/18 14:38 Dose: 1,000 mg Amlodipine Besylate (Norvasc -) 5 mg PO DAILY [facility] Last Admin: 03/07/18 11:22 Dose: 5 mg Cholecalciferol (Vitamin D3 -) 4,000 unit PO DAILY [facility] Last Admin: 03/07/18 11:22 Dose: 4,000 unit Diphenhydramine HCl (Benadryl -) 50 mg PO Q6H PRN PRN Reason: ANXIETY Enoxaparin Sodium (Lovenox -) 90 mg SQ BID [facility] Last Admin: 03/07/18 11:23 Dose: 90 mg Fluticasone Propionate (Flonase -) 2 spray NS DAILY [facility] Last Admin: 03/07/18 11:23 Dose: Not Given Gabapentin (Neurontin -) 300 mg PO TID [facility] Last Admin: 03/07/18 14:40 Dose: 300 mg Dextrose/Sodium Chloride (D5-1/2ns -) 1,000 mls @ 100 mls/hr IV ASDIR [facility] Last Admin: 03/07/18 16:28 Dose: 100 mls/hr Neomycin/Polymyxin/Bacitracin (Neosporin Topical Ointment -) 1 applic TP BID [facility] Last Admin: 03/07/18 11:23 Dose: 1 applic Nitrofurantoin Macrocrystals (Macrodantin -) 100 mg PO Q6HPO [facility] Stop: 03/09/18 06:01 Last Admin: 03/07/18 12:41 Dose: 100 mg Ondansetron HCl (Zofran Injection) 4 mg IVPB Q6H PRN PRN Reason: NAUSEA AND/OR VOMITING Last Admin: 03/07/18 03:45 Dose: 4 mg Ranitidine HCl (Zantac -) 150 mg PO BID [facility] Last Admin: 03/07/18 11:23 Dose: 150 mg Problem List - Problems (1) Metastatic breast cancer Assessment/Plan: Pt w/ chronic pain- cont Neurontin and Tylenol Pt refused MRI LS Spine again tonight stating that she has to have a BM MRI sched for tomorrow AM chemo tx on hold due to nausea/weakness, per Oncology Code(s): C50.919 - MALIGNANT NEOPLASM OF UNSP SITE OF UNSPECIFIED FEMALE BREAST ; C79.9 - SECONDARY MALIGNANT NEOPLASM OF UNSPECIFIED SITE (2) Paroxysmal a-fib Assessment/Plan: Cont cardizem/lovenox Heart rate controlled Code(s): I48.0 - PAROXYSMAL ATRIAL FIBRILLATION (3) HTN (hypertension) Code(s): I10 - ESSENTIAL (PRIMARY) HYPERTENSION BP controlled (4) Hypercoagulable state Assessment/Plan: Cont lovenox Code(s): D68.59 - OTHER PRIMARY THROMBOPHILIA (5) Anxiety and depression Code(s): F41.9 - ANXIETY DISORDER, UNSPECIFIED; F32.9 - MAJOR DEPRESSIVE DISORDER, SINGLE EPISODE, UNSPECIFIED Plan- MRI of spine and bilateral hip xrays ordered. Instructed pt/sister of need to complete procedures and return home due to weakened immune system and hospital full of sick people. Problem List - Problems (1) Leg edema, right Code(s): R60.0 - LOCALIZED EDEMA
[2018-03-07] MEDS: NYSTATIN 100000 UNIT MC SCH ×3 (19:35→19:47)
[2018-03-08] MEDS: NITROFURANTOIN MACROCRYSTAL 50 MG CAPSULE (FP) PO SCH ×4 (03:33→18:46)
[2018-03-08] MEDS ORDERED: diphenhydrAMINE HCL 25 MG CAPSULE (FP) PO PRN (04:06)
[2018-03-08] MEDS: DEXTROSE 5%-0.45% SALINE 1,000 ML IV SCH ×3 (04:26→17:45)
[2018-03-08] MEDS: ACETAMINOPHEN 500 MG TABLET (FP) PO SCH ×3 (06:31→22:58)
[2018-03-08] MEDS: GABAPENTIN 300 MG CAPSULE (FP) PO SCH ×3 (06:32→22:58)
[2018-03-08 08:52] LABS: ALBUMIN 2.7 g/dl (3.4-5.0); ANION GAP 6 (8-16); BLOOD UREA NITROGEN 9 mg/dL (7-18); CALCIUM 8.2 mg/dL (8.5-10.1); CHLORIDE 105 mmol/L (98-107); CO2 31 mmol/L (21-32); CREATININE 0.3 mg/dL (0.55-1.02); GLUCOSE,RANDOM 104 mg/dL (74-106); POTASSIUM 3.5 mmol/L (3.5-5.1); SGOT/AST 9 U/L (15-37); SGPT/ALT 14 U/L (12-78); SODIUM 142 mmol/L (136-145)
[2018-03-08 08:54] LABS: ALK PHOS 119 U/L (45-117); BASO % 0.6 % (0-2.0); BILIRUBIN,TOTAL 0.2 mg/dL (0.2-1.0); EOS % 2.9 % (0-4.5); HEMATOCRIT 32.7 % (32.4-45.2); HEMOGLOBIN 10.9 GM/dL (10.7-15.3); LYMPH % 17.2 % (8-40); MCH 28.8 pg (25.7-33.7); MCHC 33.2 g/dl (32.0-36.0); MEAN CELL VOLUME 86.6 fl (80-96); MEAN PLT VOLUME 7.7 fl (7.5-11.1); MONO % 7.6 % (3.8-10.2); NEUT % 71.7 % (42.8-82.8); PLATELET COUNT 136 K/MM3 (134-434); RBC 3.77 M/mm3 (3.60-5.2); RDW 15.8 % (11.6-15.6); TOT PROT 5.5 g/dl (6.4-8.2); WHITE BLOOD COUNT 5.9 K/mm3 (4.0-10.0)
[2018-03-08] MEDS: ENOXAPARIN NA (PORCINE) 100 MG/1 ML DISP.SYRIN SQ SCH ×2 (10:02→22:57)
[2018-03-08] MEDS: RANITIDINE HCL 150 MG TABLET (FP) PO SCH ×2 (10:10→22:59)
[2018-03-08] MEDS: amLODIPine BESYLATE 5 MG TABLET (FP) PO SCH (10:10)
[2018-03-08] MEDS: CHOLECALCIFEROL (VITAMIN D3) 1,000 UNIT TABLET (FP) PO SCH (10:10)
[2018-03-08] MEDS: FLUTICASONE PROP 0.05% 16 GM NASAL SPRAY NS SCH (10:11)
[2018-03-08] MEDS: NEOMYCIN/POLYMYXIN/BACITRACIN (TRIPLE ANTIBIOTIC) 28 GM OINTMENT TP SCH ×2 (10:11→22:59)
--- NOTE | 2018-03-08 14:43 | PN ---
Progress Note (short form) - Note Progress Note: 78 y/o female found lying in bed. Nurse reports unable to do MRI this am. Rates pain as a 9 on pain scale. Vital Signs Period Temp Pulse Resp BP Sys/Saul Pulse Ox Last 24 Hr 97.7 F-98.2 F 62-73 20-20 127-147/54-66 97-97 CBC, BMP 03/08/18 07:45 03/08/18 07:45 HEENT- NL Neck- Trachea midline Lungs- CTAB Heart- S1/S2 Abd- Soft, NT Ext- Trace B/L LE edema Active Medications Acetaminophen (Tylenol -) 1,000 mg PO TID [facility] Last Admin: 03/08/18 06:31 Dose: 1,000 mg Amlodipine Besylate (Norvasc -) 5 mg PO DAILY [facility] Last Admin: 03/08/18 10:10 Dose: 5 mg Cholecalciferol (Vitamin D3 -) 4,000 unit PO DAILY [facility] Last Admin: 03/08/18 10:10 Dose: 4,000 unit Diphenhydramine HCl (Benadryl -) 50 mg PO Q6H PRN PRN Reason: ANXIETY Enoxaparin Sodium (Lovenox -) 90 mg SQ BID [facility] Last Admin: 03/08/18 10:02 Dose: 90 mg Fluticasone Propionate (Flonase -) 2 spray NS DAILY [facility] Last Admin: 03/08/18 10:11 Dose: Not Given Gabapentin (Neurontin -) 300 mg PO TID [facility] Last Admin: 03/08/18 06:32 Dose: 300 mg Dextrose/Sodium Chloride (D5-1/2ns -) 1,000 mls @ 100 mls/hr IV ASDIR [facility] Last Admin: 03/08/18 04:26 Dose: 100 mls/hr Neomycin/Polymyxin/Bacitracin (Neosporin Topical Ointment -) 1 applic TP BID [facility] Last Admin: 03/08/18 10:11 Dose: 1 applic Nitrofurantoin Macrocrystals (Macrodantin -) 100 mg PO Q6HPO [facility] Stop: 03/09/18 06:01 Last Admin: 03/08/18 10:11 Dose: 100 mg Ondansetron HCl (Zofran Injection) 4 mg IVPB Q6H PRN PRN Reason: NAUSEA AND/OR VOMITING Last Admin: 03/07/18 03:45 Dose: 4 mg Ranitidine HCl (Zantac -) 150 mg PO BID [facility] Last Admin: 03/08/18 10:10 Dose: 150 mg Problem List - Problems (1) Metastatic breast cancer Assessment/Plan: Pt w/ chronic pain- cont Neurontin and Tylenol Pt to have MRI today or DC home tomorrow chemo tx on hold due to nausea/weakness, per Oncology Code(s): C50.919 - MALIGNANT NEOPLASM OF UNSP SITE OF UNSPECIFIED FEMALE BREAST ; C79.9 - SECONDARY MALIGNANT NEOPLASM OF UNSPECIFIED SITE (2) Paroxysmal a-fib Assessment/Plan: Cont cardizem/lovenox Heart rate controlled Code(s): I48.0 - PAROXYSMAL ATRIAL FIBRILLATION (3) HTN (hypertension) Code(s): I10 - ESSENTIAL (PRIMARY) HYPERTENSION BP controlled (4) Hypercoagulable state Assessment/Plan: Cont lovenox Code(s): D68.59 - OTHER PRIMARY THROMBOPHILIA (5) Anxiety and depression Code(s): F41.9 - ANXIETY DISORDER, UNSPECIFIED; F32.9 - MAJOR DEPRESSIVE DISORDER, SINGLE EPISODE, UNSPECIFIED Plan- MRI of spine to be done today or pt will be dc'd tomorrow and have MRI done as outpt. Xray results pending. Will have pain mgmt consult done as outpt per Oncologist recommendations. Problem List - Problems (1) Leg edema, right Code(s): R60.0 - LOCALIZED EDEMA
[2018-03-09] MEDS: NITROFURANTOIN MACROCRYSTAL 50 MG CAPSULE (FP) PO SCH ×2 (00:57→06:20)
[2018-03-09] MEDS ORDERED: PT OWN MED DRAWER 7, Y5N ONE ×3 (06:02→19:05)
[2018-03-09] MEDS: GABAPENTIN 300 MG CAPSULE (FP) PO SCH ×3 (06:19→22:37)
[2018-03-09] MEDS: ACETAMINOPHEN 500 MG TABLET (FP) PO SCH ×3 (06:19→22:37)
[2018-03-09] MEDS: CHOLECALCIFEROL (VITAMIN D3) 1,000 UNIT TABLET (FP) PO SCH (11:04)
[2018-03-09] MEDS: amLODIPine BESYLATE 5 MG TABLET (FP) PO SCH (11:04)
[2018-03-09] MEDS: ENOXAPARIN NA (PORCINE) 100 MG/1 ML DISP.SYRIN SQ SCH ×2 (11:04→22:35)
[2018-03-09] MEDS: RANITIDINE HCL 150 MG TABLET (FP) PO SCH ×2 (11:04→22:36)
[2018-03-09] MEDS: NEOMYCIN/POLYMYXIN/BACITRACIN (TRIPLE ANTIBIOTIC) 28 GM OINTMENT TP SCH ×2 (11:05→22:36)
[2018-03-09] MEDS: FLUTICASONE PROP 0.05% 16 GM NASAL SPRAY NS SCH (11:06)
[2018-03-09] MEDS: DEXTROSE 5%-0.45% SALINE 1,000 ML IV SCH ×2 (11:13→20:45)
[2018-03-09 13:00] VITALS: BMI 39.1
--- NOTE | 2018-03-09 13:26 | PN ---
Progress Note (short form) - Note Progress Note: 78 y/o female found lying in bed. Sister Virginia present. MRI spine results discussed with pt/ sister. Mets throughout spine. Pt in severe pain. Vital Signs Period Temp Pulse Resp BP Sys/Saul Pulse Ox Last 24 Hr 97.3 F-98.5 F 69-77 18-22 126-151/55-76 97-97 CBC, BMP 03/08/18 07:45 03/08/18 07:45 HEENT- NL Neck- Supple Lungs- CTAB Heart- S1/S2 Abd- Pos BS x 4, soft, NT Ext- B/L trace edema Active Medications Acetaminophen (Tylenol -) 1,000 mg PO TID [facility] Last Admin: 03/09/18 06:19 Dose: 1,000 mg Amlodipine Besylate (Norvasc -) 5 mg PO DAILY [facility] Last Admin: 03/09/18 11:04 Dose: 5 mg Cholecalciferol (Vitamin D3 -) 4,000 unit PO DAILY [facility] Last Admin: 03/09/18 11:04 Dose: 4,000 unit Diphenhydramine HCl (Benadryl -) 50 mg PO Q6H PRN PRN Reason: ANXIETY Enoxaparin Sodium (Lovenox -) 90 mg SQ BID [facility] Last Admin: 03/09/18 11:04 Dose: 90 mg Fluticasone Propionate (Flonase -) 2 spray NS DAILY [facility] Last Admin: 03/09/18 11:06 Dose: 2 sprays Gabapentin (Neurontin -) 300 mg PO TID [facility] Last Admin: 03/09/18 06:19 Dose: 300 mg Dextrose/Sodium Chloride (D5-1/2ns -) 1,000 mls @ 100 mls/hr IV ASDIR [facility] Last Admin: 03/09/18 11:13 Dose: 100 mls/hr Neomycin/Polymyxin/Bacitracin (Neosporin Topical Ointment -) 1 applic TP BID [facility] Last Admin: 03/09/18 11:05 Dose: 1 applic Ondansetron HCl (Zofran Injection) 4 mg IVPB Q6H PRN PRN Reason: NAUSEA AND/OR VOMITING Last Admin: 03/07/18 03:45 Dose: 4 mg Ranitidine HCl (Zantac -) 150 mg PO BID [facility] Last Admin: 08/15/18 11:04 Dose: 150 mg Problem List - Problems (1) Metastatic breast cancer Assessment/Plan: Pt w/ chronic pain- cont Neurontin and Tylenol MRI results show mets throughout spin Code(s): C50.919 - MALIGNANT NEOPLASM OF UNSP SITE OF UNSPECIFIED FEMALE BREAST ; C79.9 - SECONDARY MALIGNANT NEOPLASM OF UNSPECIFIED SITE (2) Paroxysmal a-fib Assessment/Plan: Cont cardizem/lovenox Heart rate controlled Code(s): I48.0 - PAROXYSMAL ATRIAL FIBRILLATION (3) HTN (hypertension) Code(s): I10 - ESSENTIAL (PRIMARY) HYPERTENSION BP controlled (4) Hypercoagulable state Assessment/Plan: Cont lovenox Code(s): D68.59 - OTHER PRIMARY THROMBOPHILIA (5) Anxiety and depression Code(s): F41.9 - ANXIETY DISORDER, UNSPECIFIED; F32.9 - MAJOR DEPRESSIVE DISORDER, SINGLE EPISODE, UNSPECIFIED Plan- MRI of spine results discussed with pt/ sister, [facility] Dr. Lim and Oncologist Dr. Haile. Pt to be transferred to [facility] for radiation. Problem List - Problems (1) Leg edema, right Code(s): R60.0 - LOCALIZED EDEMA
[2018-03-09] MEDS: SILVER SULFADIAZINE 1% TOP CREAM 50 GM JAR TP SCH (22:35)
[2018-03-10] MEDS: ACETAMINOPHEN 500 MG TABLET (FP) PO SCH ×3 (06:26→22:27)
[2018-03-10] MEDS: GABAPENTIN 300 MG CAPSULE (FP) PO SCH ×3 (06:27→22:27)
[2018-03-10] MEDS: DEXTROSE 5%-0.45% SALINE 1,000 ML IV SCH ×2 (06:31→16:41)
[2018-03-10] MEDS ORDERED: PT OWN MED DRAWER 7, Y5N ONE (09:22)
[2018-03-10] MEDS: FLUTICASONE PROP 0.05% 16 GM NASAL SPRAY NS SCH (09:44)
[2018-03-10] MEDS: RANITIDINE HCL 150 MG TABLET (FP) PO SCH ×2 (09:45→22:27)
[2018-03-10] MEDS: CHOLECALCIFEROL (VITAMIN D3) 1,000 UNIT TABLET (FP) PO SCH (09:45)
[2018-03-10] MEDS: amLODIPine BESYLATE 5 MG TABLET (FP) PO SCH ×2 (09:45→13:28)
[2018-03-10] MEDS: ENOXAPARIN NA (PORCINE) 100 MG/1 ML DISP.SYRIN SQ SCH ×2 (09:46→22:27)
[2018-03-10] MEDS: NEOMYCIN/POLYMYXIN/BACITRACIN (TRIPLE ANTIBIOTIC) 28 GM OINTMENT TP SCH ×2 (09:46→22:29)
[2018-03-10] MEDS: SILVER SULFADIAZINE 1% TOP CREAM 50 GM JAR TP SCH ×2 (10:00→22:28)
--- NOTE | 2018-03-10 13:16 | PN ---
Progress Note (short form) - Note Progress Note: 78 y/o female found lying in bed. States very little appetite. HEENT- NL Neck-supple Lungs- CTAB Heart- S1/S2 Abd- soft, nt Ext- B/L trace edema Plan- awaiting a bed in [facility] for radiation txs due to mets to spine. Problem List - Problems (1) Leg edema, right Code(s): R60.0 - LOCALIZED EDEMA
[2018-03-11] MEDS: DEXTROSE 5%-0.45% SALINE 1,000 ML IV SCH (04:04)
[2018-03-11] MEDS: GABAPENTIN 300 MG CAPSULE (FP) PO SCH (06:54)
[2018-03-11] MEDS: ACETAMINOPHEN 500 MG TABLET (FP) PO SCH (06:54)
[2018-03-11] MEDS: CHOLECALCIFEROL (VITAMIN D3) 1,000 UNIT TABLET (FP) PO SCH (11:11)
[2018-03-11] MEDS: RANITIDINE HCL 150 MG TABLET (FP) PO SCH (11:11)
[2018-03-11] MEDS: ENOXAPARIN NA (PORCINE) 100 MG/1 ML DISP.SYRIN SQ SCH (11:11)
[2018-03-11] MEDS: amLODIPine BESYLATE 5 MG TABLET (FP) PO SCH (11:11)
[2018-03-11] MEDS: NEOMYCIN/POLYMYXIN/BACITRACIN (TRIPLE ANTIBIOTIC) 28 GM OINTMENT TP SCH (11:12)
[2018-03-11] MEDS: SILVER SULFADIAZINE 1% TOP CREAM 50 GM JAR TP SCH (11:12)
[2018-03-11] MEDS: FLUTICASONE PROP 0.05% 16 GM NASAL SPRAY NS SCH (11:13)
[2018-03-11 11:33] VITALS: BP 118/61; PULSE 72; TEMP 98
--- NOTE | 2018-03-11 13:39 | PN ---
Progress Note (short form) - Note Progress Note: 78 y/o found lying in bed. States that she ate this am. Sill awaiting bed at [facility]. HEENT- NL Neck- Supple Lungs- CTAB Heart- S1/S2 Abd- soft, nt Ext- Trace B/L LE edema Plan- Transfer to [facility] for radiation for Ca mets to spine to prevent spinal cord compression. Problem List - Problems (1) Leg edema, right Code(s): R60.0 - LOCALIZED EDEMA
== END 2018-03-11 13:32 | disposition short-term general hospital (02) ==
LOC: JER 11:52 → JERBED 17:06 → UNDOADMIN 17:06 → INTOOBSV 21:08 → JERBED 21:08 → UNDOADMOB 21:08 → JERBED 21:14 → J4S 03-03 20:46 → J5S 03-03 21:42
PROVIDERS: ADMIT Family Medicine; ATTEND Family Medicine
PROC: 3E033GC Introduction of Other Therapeutic Substance into Peripheral Vein, Percutaneous Approach (ICD-10-PCS; principal; 2018-03-02)
PROC: 3E0337Z Introduction of Electrolytic and Water Balance Substance into Peripheral Vein, Percutaneous Approach (ICD-10-PCS; 2018-03-02)
PROC: 3E013GC Introduction of Other Therapeutic Substance into Subcutaneous Tissue, Percutaneous Approach (ICD-10-PCS; 2018-03-02)
DX: R60.0 Localized edema (principal); R07.89 Other chest pain; R10.9 Unspecified abdominal pain; C50.912 Malignant neoplasm of unspecified site of left female breast; C50.911 Malignant neoplasm of unspecified site of right female breast; C78.00 Secondary malignant neoplasm of unspecified lung; C79.51 Secondary malignant neoplasm of bone; G89.3 Neoplasm related pain (acute) (chronic); D68.59 Other primary thrombophilia; M89.8X9 Other specified disorders of bone, unspecified site; I48.0 Paroxysmal atrial fibrillation; I10 Essential (primary) hypertension; F32.9 Major depressive disorder, single episode, unspecified; F41.9 Anxiety disorder, unspecified; K21.9 Gastro-esophageal reflux disease without esophagitis; E66.01 Morbid (severe) obesity due to excess calories; Z68.39 Body mass index [BMI] 39.0-39.9, adult; Z85.238 Personal history of other malignant neoplasm of thymus; Z88.1 Allergy status to other antibiotic agents; Z88.5 Allergy status to narcotic agent; Z88.2 Allergy status to sulfonamides; Z88.8 Allergy status to other drugs, medicaments and biological substances; Z79.01 Long term (current) use of anticoagulants; Z90.12 Acquired absence of left breast and nipple; Z86.711 Personal history of pulmonary embolism; Z86.718 Personal history of other venous thrombosis and embolism; Z87.440 Personal history of urinary (tract) infections
CPT/HCPCS: 36415; 71046-TC-FY; 72146-TC; 72148-TC; 73502-TC-LT-FY; 73502-TC-RT; 74176-TC; 80053; 81003; 81015; 82550; 83605; 83690; 83735; 83880; 84100; 84484; 85025; 85027; 87086; 93005; 93010; 93971-TC; 96365; 96372; 97116-GP; 97162-GP; 99285-25; G0378; J8521